=== PATIENT | male | born 1975 | race African-American/Black ===

== ENCOUNTER 2017-05-31 13:53 | Inpatient (IN) | payer SELFPAY ==
[2017-05-31] VITALS (14 sets, daily range): BP systolic 170–206; BP diastolic 92–139; PULSE 44–91; RESP 16–18; TEMP 97.7–99.4; O2SAT 95–100
[2017-05-31] MEDS ORDERED: SODIUM CHLOR 0.9% 1000 ML INJ 1,000 ML IV ONE (13:58)
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
[2017-05-31 14:11] LABS: I-STAT POTASSIUM 3.6 MMOL/L (3.5-4.9)
[2017-05-31 14:13] LABS: AUTOMATED NEUTROPHIL # 5.3 TH/MM3 (1.8-7.7); BASOPHIL % 0.5 % (0.0-2.0); EOSINOPHIL % 0.2 % (0.0-4.0); HEMATOCRIT 44.4 % (39.0-51.0); HEMO FLAGS DIFF FINAL; LYMPH % 25.9 % (9.0-44.0); LYMPHOCYTE # 2.2 TH/MM3 (1.0-4.8); MEAN CELL VOLUME 75.8 FL (80.0-100.0); MEAN CORPUSCULAR HEMOGLOBIN 25.1 PG (27.0-34.0); MEAN CORPUSCULAR HGB CONC 33.1 % (32.0-36.0); NEUT % 62.4 % (16.0-70.0); PLATELET COUNT 177 TH/MM3 (150-450); RED BLOOD COUNT 5.86 MIL/MM3 (4.50-5.90); RED CELL DISTRIBUTION WIDTH 14.3 % (11.6-17.2); WHITE BLOOD COUNT 8.6 TH/MM3 (4.0-11.0)
[2017-05-31 14:23] LABS: APTT (PATIENT) 28.7 SEC (24.3-30.1); INTERNATIONAL NORMALIZED RATIO 1.3 RATIO; PROTHROMBIN TIME - PATIENT 14.4 SEC (9.8-11.6)
--- NOTE | 2017-05-31 14:25 | RADRPT ---
EXAM DATE/TIME: 05/31/2017 14:00 [facility] COMPARISON: No previous studies available for comparison. INDICATIONS : Left sided weakness and arm tingling. RADIATION DOSE: 56.38 CTDIvol (mGy) This report was called by Dr. Batista to at 2: 21 PM MEDICAL HISTORY : None SURGICAL HISTORY : None. ENCOUNTER: Initial ACUITY: 1 day PAIN SCALE: 0/10 LOCATION: cranial TECHNIQUE: Multiple contiguous axial images were obtained of the head. Using automated exposure control and adj ustment of the mA and/or kV according to patient size, radiation dose was kept as low as reasonably a chievable to obtain optimal diagnostic quality images. DICOM format image data is available electro nically for review and comparison. FINDINGS: CEREBRUM: The ventricles are normal for age. No evidence of midline shift, mass lesion, hemorrhage or acute in farction. No extra-axial fluid collections are seen. POSTERIOR FOSSA: The cerebellum and brainstem are intact. The 4th ventricle is midline. The cerebellopontine angle i s unremarkable. EXTRACRANIAL: The visualized portion of the orbits is intact. SKULL: The calvaria is intact. No evidence of skull fracture. CONCLUSION: Normal examination for a patient of this age. Abhijeet Batista MD on May 31, 2017 at 14:19 Board Certified Radiologist. This report was verified electronically.
[2017-05-31] MEDS ORDERED: ENALAPRILAT 1.25 MG/ML VIAL IV PUSH ONE ×2 (14:30→19:15)
[2017-05-31 14:44] LABS: CKMB 3.6 NG/ML (0.5-3.6)
--- NOTE | 2017-05-31 15:42 | HHI.HP ---
[facility] Primary Care Physician Unknown Admission Diagnosis TIA VS POSSIBLE RADIAL NERVE PALSY Diagnoses: Chief Complaint: LUE weakness Travel History International Travel<30 Days: No Contact w/Intl Traveler <30 Da: No Traveled to Known Affected Are: No History of Present Illness Written by BRYAN Wang acting as scribe for [Meaghan] on 05/31/17 at 15 :55. 42 y/o male with a history of HTN (not on any medication) presented to the ED with complaints of LUE weakness 40 mins prior to coming to the ED. 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 After becoming dizzy his LUE went numb and he couldn't move it. He also had associated chest squeezing pressure and sob. He states his symptoms have now resolved. He states he does have HTN and his states the medication does not work and he is not going to take more than one medication. Denies any nausea or vomiting. Review of Systems Constitutional: DENIES: Fever, Chills Respiratory: COMPLAINS OF: Shortness of breath, DENIES: Cough Cardiovascular: COMPLAINS OF: Chest pain, DENIES: Lower Extremity Edema Gastrointestinal: DENIES: Constipation, Diarrhea, Nausea Genitourinary: DENIES: Hematuria, Dysuria Musculoskeletal: DENIES: Back pain, Neck pain Integumentary: DENIES: Rash Hematologic/lymphatic: DENIES: Lymphadenopathy Immunologic/allergic: DENIES: Urticaria Neurologic: DENIES: Headache Past Family Social History Past Medical History HTN, not on any medications Past Surgical History Colon resection with colostomy that was paddy reversed LLE with rods, pins, and screws Hernia repair Right 2nd digit partial amputation Reported Medications Reported Meds & Active Scripts Active No Active Prescriptions or Reported Medications Allergies: Coded Allergies: Contrast Media (Verified Allergy, Severe, Rash, 07/16/16) PT STATES HIVES/RASH/OVERALL WARMTH Lactose (Verified Allergy, Severe, 07/16/16) GI UPSET Shellfish (Verified Allergy, Severe, Anaphylaxis, 07/16/16) Active Ordered Medications Current Medications Medications (Trade) Dose Ordered Sig/Lisy Route Start Time Stop Time Status Last Admin (NS 1000 ml Inj) 1,000 ml @ 70 mls/hr [id number] ONCE IV 05/31/17 13:58 06/01/17 04:15 05/31/17 14:43 Family History Mom: CARLA Dad: colon cancer Social History Tobacco use: 1 PPD Alcohol use: Occasionally Illicit drug use: Marijuana daily Physical Exam Vital Signs Vital Signs Date Time Temp Pulse Resp B/P Pulse Ox O2 Delivery O2 Flow Rate FiO2 05/31/17 15:11 78 18 170/116 96 Room Air 05/31/17 13:55 Room Air 05/31/17 13:55 99 Room Air 05/31/17 13:55 95 21 05/31/17 13:55 Room Air 05/31/17 13:55 95 21 05/31/17 13:55 98.8 91 18 185/119 95 Physical Exam GENERAL: This is a well-nourished, well-developed patient, in no apparent distress. SKIN: No rashes, ecchymoses or lesions. Cool and dry. HEAD: Atraumatic. Normocephalic. EYES: Pupils equal round and reactive. Extraocular motions intact. ENT: Nose without bleeding, purulent drainage or septal hematoma. Airway patent. NECK: Trachea midline. No JVD or lymphadenopathy. CARDIOVASCULAR: Regular rate and rhythm without murmurs, gallops, or rubs. RESPIRATORY: Clear to auscultation. Breath sounds equal bilaterally. No wheezes , rales, or rhonchi. GASTROINTESTINAL: Abdomen soft, non-tender, nondistended. MUSCULOSKELETAL: Extremities without clubbing, cyanosis, or edema. No joint tenderness, effusion, or edema noted. No calf tenderness. NEUROLOGICAL: Awake and alert. Cranial nerves II through XII intact. Motor and sensory grossly within normal limits. Five out of 5 muscle strength in all muscle groups. Normal speech. Laboratory Laboratory Tests Test 05/31/17 13:57 White Blood Count 8.6 Red Blood Count 5.86 Hemoglobin 14.7 Bedside Hemoglobin 16.3 Hematocrit 44.4 Bedside Hematocrit 48.0 Mean Corpuscular Volume 75.8 Mean Corpuscular Hemoglobin 25.1 Mean Corpuscular Hemoglobin 33.1 Concent Red Cell Distribution Width 14.3 Platelet Count 177 Mean Platelet Volume 8.2 Neutrophils (%) (Auto) 62.4 Lymphocytes (%) (Auto) 25.9 Monocytes (%) (Auto) 11.0 Eosinophils (%) (Auto) 0.2 Basophils (%) (Auto) 0.5 Neutrophils # (Auto) 5.3 Lymphocytes # (Auto) 2.2 Monocytes # (Auto) 0.9 Eosinophils # (Auto) 0.0 Basophils # (Auto) 0.0 CBC Comment DIFF FINAL Differential Comment Prothrombin Time 14.4 Prothromb Time International 1.3 Ratio Activated Partial 28.7 Thromboplast Time Fibrinogen 374 Bedside Sodium 146 Bedside Potassium 3.6 Bedside Chloride 109 Bedside Blood Urea Nitrogen 14 Bedside Creatinine 1.4 Bedside Glucose 64 Total Creatine Kinase 422 Creatine Kinase MB 3.6 Creatine Kinase MB % 0.9 Troponin I 0.02 Blood Type A POSITIVE Antibody Screen NEGATIVE Result Diagram: 05/31/17 1357 Imaging Last Impressions Head CT 05/31/17 0000 Signed Impressions: Service Date/Time: Wednesday, May 31, 2017 14:00 - CONCLUSION: Normal examination for a patient of this age. Abhijeet Batista MD Assessment and Plan Problem List: (1) TIA (transient ischemic attack) ICD Code: G45.9 Status: Acute (2) Hypertensive emergency ICD Code: I16.1 Status: Acute (3) Acute kidney injury ICD Code: N17.9 Status: Acute Assessment and Plan 42 y/o male with a history of HTN (not on any medication) presented to the ED with complaints of LUE weakness 40 mins prior to coming to the ED. TIA, LUE weakness r/o CVA Head CT reviewed, unremarkable -Consult neurology, ED MD discussed with Dr Castillo and he recommended no TPA secondary to minimal deficit -MRI/MRA ordered -Allow for permissive HTN -Neuro checks -PT/OT/ST consult HTN emergency, patient is not on any medications because he states they do not work. -Discussed at length with patient the importance of taking medication and following of outpatient -Will need to start antihypertensives tomorrow. Acute Kidney Injury, creatine 1.4, baseline in 2013 1.06 -IVF -BMP in AM DVT prophylaxis: Heparin This note was transcribed by cristhian [Judy Kim]. I, Dr. Jin Harding personally performed the history, physical exam, and medical decision making; and confirmed the accuracy of the information in the transcribed note. Authenticated by Dr. Jin Harding on 05/31/17 at 1605. Discussed Condition With Patient Judy Kim BRYAN May 31, 2017 15:42 Jin Harding MD May 31, 2017 16:26
[2017-05-31] MEDS ORDERED: SENNOSIDES 8.6 MG TAB PO PRN (16:00)
[2017-05-31] MEDS ORDERED: NALOXONE HCL 0.4 MG/ML AMP IV PRN (16:00)
[2017-05-31] MEDS ORDERED: MAGNESIUM HYDROXIDE SUSP 30 ML CUP PO PRN (16:00)
[2017-05-31] MEDS ORDERED: ONDANSETRON HCL 4 MG/2 ML VIAL IVP PRN (16:00)
[2017-05-31] MEDS ORDERED: SODIUM CHLORIDE 0.9% FLUSH 10 ML FLUSH IV FLUSH PRN (16:00)
[2017-05-31] MEDS ORDERED: BISACODYL 10 MG SUPP RECTAL PRN (16:00)
[2017-05-31] MEDS ORDERED: HEPARIN SODIUM - SQ 10,000 UNITS/ML VIAL SQ SCH (16:00)
[2017-05-31] MEDS ORDERED: LACTULOSE SYRUP 20 GM/30 ML CUP PO PRN (16:00)
[2017-05-31] MEDS ORDERED: ENALAPRILAT 1.25 MG/ML VIAL IV PRN (16:15)
[2017-05-31] MEDS ORDERED: ASPIRIN 325 MG TAB PO SCH (17:00)
[2017-05-31] MEDS ORDERED: GADODIAMIDE PF 287 MG/ML 20 ML VIAL (for RAD MRI) IV ONE (18:39)
--- NOTE | 2017-05-31 18:45 | RADRPT ---
EXAM DATE/TIME: 05/31/2017 17:06 [facility] COMPARISON: MRA BRAIN W/O CONTRAST, May 31, 2017, 17:06. CT BRAIN W/O CONTRAST, May 31, 2017, 14:00. INDICATIONS : Stroke. MEDICAL HISTORY : Hypertension. SURGICAL HISTORY : Colon resection. Leg. ENCOUNTER: Subsequent ACUITY: 1 day PAIN SCORE: 3/10 LOCATION: cranial TECHNIQUE: Multiplanar, multisequence MRI of the brain was performed without contrast. FINDINGS: CEREBRUM: There is subtle increase signal within some of the cortical sulci at the superior right frontal and p arietal lobes. This is only seen on the flair images. No abnormality is seen on the diffusion-weighte d images to suggest infarction. There is a focal 0.9 cm nodular area of low signal seen in the superi or left parietal lobe only on the SWI images. No abnormality seen in this region on other sequences. The ventricles are normal for age. No evidence of midline shift, mass lesion, hemorrhage or acute in farction. No extraaxial fluid collections are seen. The pituitary gland and suprasellar cistern are normal in configuration. WHITE MATTER: No significant signal abnormalities are seen in the white matter. POSTERIOR FOSSA: The cerebellum and brainstem are intact. The 4th ventricle is midline. The cerebellopontine angle is unremarkable. The cerebellar tonsils are normal in position. DIFFUSION IMAGING: No focal areas of restricted diffusion are seen. No evidence of acute infarction. EXTRACRANIAL: The visualized portions of the orbits and paranasal sinuses are unremarkable. CONCLUSION: 1. Subtle signal and moderate within the cortex at the right frontal, temporal, and parietal lobes. T his is likely from ischemia without infarction. The patient does appear to have decreased flow at the proximal right middle cerebral artery on the MRA concerning for thrombus. 2. Focal area of decreased signal at the left parietal lobe seen on one sequence. This may be a seque la of prior hemorrhage. No acute mass effect or edema is seen. Norbert Angel MD on May 31, 2017 at 18:23 Board Certified Radiologist. This report was verified electronically.
--- NOTE | 2017-05-31 18:53 | RADRPT ---
EXAM DATE/TIME: 05/31/2017 17:06 [facility] COMPARISON: No previous studies available for comparison. INDICATIONS : CVA. MEDICAL HISTORY : Hypertension. SURGICAL HISTORY : Colon resection. Leg. ENCOUNTER: Subsequent ACUITY: 1 day PAIN SCORE: 3/10 LOCATION: cranial Please note a normal MRA of the brain does not entirely exclude the possibility of a small aneurysm, nor the possibility of distal intracranial vessel disease. TECHNIQUE: 3D time of flight MRA was performed. Source images, multiplanar STS MIP, and 3D volume MIP reconstru ctions were reviewed. FINDINGS: There appears to be thrombus at the right internal carotid artery bifurcation extending into the righ t middle and anterior cerebral arteries. The distal flow in the right middle and anterior cerebral ar teries is intact. There is a patent posterior communicating artery. The remaining arterial structures are normal. No aneurysm is seen. CONCLUSION: Suspected thrombus at the distal right internal carotid artery extending into the proximal right midd le and anterior cerebral arteries. Norbert Angel MD on May 31, 2017 at 18:43 Board Certified Radiologist. This report was verified electronically.
--- NOTE | 2017-05-31 19:00 | RADRPT ---
EXAM DATE/TIME: 05/31/2017 17:06 [facility] COMPARISON: No previous studies available for comparison. INDICATIONS : Stroke. CONTRAST: 20 cc Omniscan (gadodiamide) IV MEDICAL HISTORY : Hypertension. SURGICAL HISTORY : Colon resection. Leg. ENCOUNTER: Subsequent ACUITY: 1 day PAIN SCORE: 3/10 LOCATION: cranial Percent stenosis is calculated using the diameter of the stenotic region over the diameter of the nor mal distal internal carotid artery. TECHNIQUE: Bolus infused MRA of the extracranial circulation was performed using a neurovascular coil. Post pro cessing was performed including rotating subvolume maximum intensity projections of each carotid ann ry, rotating full volume maximum intensity projections of both carotid arteries, sagittal and coronal sliding thin slab reformations of each carotid artery, and left oblique sliding thin slab reformatio n through the aortic arch to include the origin of the arch branch vessels. FINDINGS: AORTIC ARCH: The left common carotid artery arises from the base of the right brachiocephalic artery. This a everardo l variant. No evidence of ostial narrowing. RIGHT CAROTID: The common carotid artery is intact. The carotid bulb has a normal configuration without ulceration or narrowing. The internal carotid artery lumen is smooth without stenosis. The external carotid ar sheree is intact. There is filling of the right internal jugular vein. There is a potential communicati on at the level of the carotid bulb region. LEFT CAROTID: The common carotid artery is intact. The carotid bulb has a normal configuration without ulceration or narrowing. The internal carotid artery lumen is smooth without stenosis. The external carotid ar sheree is intact. VERTEBRALS: The vertebral arteries have a symmetric diameter. No stenotic lesions are seen. CONCLUSION: Very prominent filling of the right internal jugular vein concerning for a fistula at the level of th e right internal carotid bifurcation. Further evaluation with a CTA of the neck would be recommended. Norbert Angel MD on May 31, 2017 at 18:51 Board Certified Radiologist. This report was verified electronically.
[2017-05-31] MEDS ORDERED: methylPREDNISolone SOD SUCC 125 MG/2 ML VIAL IV PUSH ONE (19:15)
--- NOTE | 2017-05-31 20:38 | MB ---
cc: JAJA CASTILLO M.D. DATE OF CONSULTATION 05/31/2017 HISTORY Jose Funk is a 42-year-old seen in neurological consultation. Case discussed with the ED physician Dr. Lacy earlier today. He came in with a left upper extremity weakness and he improved remarkably. By the time I was called a CT brain had been done which was negative and the patient's neurological deficits were minimal and only localized at the distal upper extremity where he had some wrist drop. We even thought he could have had a radial nerve palsy. He progressed to improve. We did not feel he was a candidate for TPA but felt we should do some additional imaging studies at that point. He was sent for MRA studies and I also requested an MRI brain. I spoke to the radiologist with concern about the possible thrombus on the right ICA along with possible ischemia without actual infarction. There was no diffusion abnormality and I reviewed the MRI. The MRA of the neck is showing a prominent filling of the right internal jugular vein concerning for fistula at the level of the right internal carotid bifurcation. The patient has a history of hypertension but not taking the lisinopril and HCTZ that was prescribed for him. He admits smoking including some smoking weed. No longer drinking alcohol although he was a heavy drinker in the past. He denies any other recreational drug use. 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 He then developed dizzy sensation and may have had some chest pain and the left arm became weak on him, he walked himself out of the place and got into the [employer] transportation van. NEUROLOGICAL EXAMINATION The neurological exam showed normal mentation. Essentially normal neurologic exam at this time. The NIH stroke scale is zero. The ocular movements and visual alan were full. There is no facial weakness. Speech and language normal. Tongue and palate moves well. He is mildly anxious. He has good strength on both upper extremities and [id number] testing is normal. Lower extremities also with normal strength and reflexes were 1+ throughout and plantar responses flexor. ASSESSMENT Resolved left arm weakness. Initially his symptoms seem to have improved quickly and we did not feel he was a candidate for TPA due to minimal deficits at that time. We even questioned whether or not this was a peripheral neuropathy rather than an cerebrovascular event. The MRA study is showing some right internal carotid artery distal possible thrombus extending to the right middle and anterior cerebral arteries. The MRA neck is showing a possible fistula at the level of the right internal carotid bifurcation. The MRI of brain shows no diffusion abnormalities and the radiologist questioned ischemia without infarction. There is an probable old left posterior parietal small hemorrhage sequela. I went and discussed with the patient this diagnostic consideration and possible treatment modalities as I also discussed with the interventional radiologist. At this point he is essentially asymptomatic and we will await on the CT angio results in order to make a decision. Though thrombectomy will be a consideration, another possibility would be anticoagulation. If a fistula is confirmed, then I will also contact the neurosurgeon for an opinion in that regard. For the time-being let his blood pressure be permissive unless over 210/110. I will follow the neurological course. Thank you for asking us to assist in his care. Jaja Castillo MD OFC/KK /8:14 PM /8:29 PM
[2017-05-31] MEDS: DOCUSATE SODIUM 50 MG/SENNA 8.6 MG TAB PO SCH (20:41)
[2017-05-31] MEDS: SODIUM CHLORIDE 0.9% FLUSH 10 ML FLUSH IV FLUSH SCH (20:41)
[2017-05-31] MEDS ORDERED: IOHEXOL 350 MG/ML 10 ML VIAL (for RAD DIAG) IV ONE (20:50)
--- NOTE | 2017-05-31 20:56 | RADRPT ---
EXAM DATE/TIME: 05/31/2017 20:10 [facility] COMPARISON: MRA CAROTIDS W CONTRAST, May 31, 2017, 17:06. MRA BRAIN W/O CONTRAST, May 31, 2017, 17:06. INDICATIONS : Left sided weakness. IV CONTRAST: 70 cc Omnipaque 350 (iohexol) IV ; Cumulative dose for multiple exams. RADIATION DOSE: 27.94 CTDIvol (mGy) ; Combined studies MEDICAL HISTORY : None SURGICAL HISTORY : None. ENCOUNTER: Initial ACUITY: 1 day PAIN SCALE: 0/10 LOCATION: cranial Patient was premedicated for underlying contrast media allergy. TECHNIQUE: Volumetric scanning was performed using a multi-row detector CT scanner. The data was post processed with a variety of visualization algorithms including full volume maximum intensity projection, multi -planar sliding thin slab reformation, curved planar reformation, and surface rendering techniques. Using automated exposure control and adjustment of the mA and/or kV according to patient size, radiat ion dose was kept as low as reasonably achievable to obtain optimal diagnostic quality images. DICO M format image data is available electronically for review and comparison. FINDINGS: The internal carotids are patent bilaterally. There does appear to be a 4 mm posteriorly directed ane urysm at the supraclinoid portion of the right distal internal carotid artery. On the coronal images, it appears the more distal right internal cerebral artery is smaller than the left side. The right M CA is patent. There is some questionable minimal irregularity at the right middle cerebral artery. Th e left middle cerebral artery appears very smooth. The A1 segments are asymmetric with the right side being small than the left side. Asymmetry to the A1 segments of the anterior cerebral arteries is fa irly common. Thrombus is not seen. The basilar artery primarily ends as the right posterior cerebral artery. The left posterior cerebral artery arises from the left internal carotid artery. CONCLUSION: 1. 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 2. Asymmetry to the middle cerebral arteries with questionable irregularity on the right which could represent spasm. The distal right internal carotid artery above the aneurysm also appears small which could indicate some spasm. 3. Asymmetry to the A1 segments of anterior cerebral arteries. This could be normal and represent the patient's normal state. Some spasm in the right anterior cerebral artery A1 segment could have a sim ilar appearance. Norbert Angel MD on May 31, 2017 at 20:37 Board Certified Radiologist. This report was verified electronically.
--- NOTE | 2017-05-31 21:03 | RADRPT ---
EXAM DATE/TIME: 05/31/2017 20:10 [facility] COMPARISON: No previous studies available for comparison. INDICATIONS : Left sided weakness. IV CONTRAST: 70 cc Omnipaque 350 (iohexol) IV ; Cumulative dose for multiple exams. RADIATION DOSE: 27.94 CTDIvol (mGy) ; Combined studies MEDICAL HISTORY : None SURGICAL HISTORY : None. ENCOUNTER: Initial ACUITY: 1 day PAIN SCALE: 0/10 LOCATION: carotids Elevated flow velocities and ICA/CCA ratios have been found to correlate with increased degrees of vessel stenosis, calculated as percentage of diameter relative to a normal segment of distal ICA/CCA. Patient was premedicated for underlying contrast media allergy. TECHNIQUE: Volumetric scanning was performed using a multirow detector CT scanner. The data was post processed with a variety of visualization algorithms including full-volume maximum intensity projection, multip lanar sliding thin-slab reformation, curved-planar reformation, and surface-rendering techniques. Us ing automated exposure control and adjustment of the mA and/or kV according to patient size, radiatio n dose was kept as low as reasonably achievable to obtain optimal diagnostic quality images. DICOM f ormat image data is available electronically for review and comparison. FINDINGS: AORTIC ARCH: The left common carotid artery arises from the base of the right brachiocephalic artery. This a everardo l variant. No evidence of ostial narrowing. RIGHT CAROTID: The common carotid artery is intact. The carotid bulb has a normal configuration without ulceration o r narrowing. The internal carotid artery lumen is smooth without stenosis. The external carotid ann ry is intact. LEFT CAROTID: The common carotid artery is intact. The carotid bulb has a normal configuration without ulceration or narrowing. The internal carotid artery lumen is smooth without stenosis. The external carotid ar sheree is intact. VERTEBRALS: The vertebral arteries have a symmetric diameter. No stenotic lesions are seen. OTHER: The internal jugular veins appear symmetric in size and contrast enhancement. Early enhancement on th e right side is not seen. Early enhancement was seen on the prior MRA. This could potentially be from retrograde filling if the patient had a right arm injection although the appearance is not typically seen almost MRAs. CONCLUSION: 1. Normal CTA of the neck. 2. The internal jugular veins appear symmetric. Early filling of the internal jugular veins is not se en. Norbert Angel MD on May 31, 2017 at 20:53 Board Certified Radiologist. This report was verified electronically.
[2017-05-31] MEDS ORDERED: hydrALAZINE HCL 20 MG/ML VIAL IV PUSH PRN (21:45)
[2017-05-31] MEDS ORDERED: cloNIDine HCL 0.1 MG TAB PO ONE (21:45)
--- NOTE | 2017-05-31 21:49 | HHI.PR ---
Addendum to Inpatient Note Addendum Reason: Additional Documentation Additional Information I was called by ER team that the radiologist had called them with the report of CT imaging studies. I have tried to reach the radiologist but was unable to do so. Therefore I had called neurologist to find out the details. The neurologist informed me that he has spoken to the radiologist and is aware of the imaging studies reports. At this point, patient is more suspicious of having a cerebral aneurysm rather than a thrombus which was the initial thoughts. Therefore, neurologist has advised me to control the blood pressure more tightly overnight with the goal being systolic of 150-160. Also advised me to hold all the blood thinners. Patient already received aspirin and heparin prophylactic dose tonight. I have informed this to the neurologist. However will hold blood thinners from now on. Give clonidine 0.1 mg by mouth 1 dose now. We'll use hydralazine 10 mg IV every 30 minutes when necessary for blood pressure greater than 150/80. We'll transfer patient to a monitored floor where I can administer IV antihypertensives. Nursing staff is informed of the above. Full cerebral angiogram will be done tomorrow per neurology. Melo Celeste MD May 31, 2017 21:49
[2017-05-31 21:54] LABS: HDL CHOLESTEROL 34.1 MG/DL (40.0-60.0); LDL CHOLESTEROL 45 MG/DL (0-99)
[2017-05-31] MEDS ORDERED: diphenhydrAMINE HCL 50 MG/ML VIAL IV PUSH ONE (22:00)
[2017-06-01] VITALS (21 sets, daily range): BP systolic 153–200; BP diastolic 79–117; PULSE 44–72; RESP 18–20; TEMP 98–98.4; O2SAT 95–100
[2017-06-01 07:19] LABS: HDL CHOLESTEROL 38.7 MG/DL (40.0-60.0)
[2017-06-01] MEDS: DOCUSATE SODIUM 50 MG/SENNA 8.6 MG TAB PO SCH ×2 (09:00→20:46)
[2017-06-01] MEDS: SODIUM CHLORIDE 0.9% FLUSH 10 ML FLUSH IV FLUSH SCH ×2 (09:19→20:43)
--- NOTE | 2017-06-01 09:57 | EKG ---
Date Performed: 05/31/2017 Time Performed: 14:17:52 PTAGE: 42 years EKG: Sinus rhythm NONSPECIFIC T-WAVE ABNORMALITY BORDERLINE ECG PREVIOUS TRACING : 12/30/2015 07.46 DOCTOR: Jey Gerber Interpretating Date/Time 06/01/2017 09:56:56
[2017-06-01] MEDS ORDERED: methylPREDNISolone SOD SUCC 125 MG/2 ML VIAL IV PUSH ONE (11:00)
[2017-06-01] MEDS ORDERED: diphenhydrAMINE HCL 50 MG/ML VIAL ONE (11:50)
[2017-06-01] MEDS ORDERED: MIDAZOLAM HCL 5 MG/5 ML VIAL ONE (11:55)
--- NOTE | 2017-06-01 11:55 | HHI.PR ---
Review/Management Daily Summary 06/01 doing well, no sx recurrence somewhat excessively enthusiastic with family members around i discussed he needs a more relaxed low ricks profile/environment for now spoke with radiology will request LP besides cerebral angio to look for minor aneurysm bleed Subjective Subjective Comments No acute events reported No headache No chest pain No dyspnea Active Medications Current Medications Medications (Trade) Dose Ordered Sig/Lisy Route Start Time Stop Time Status Last Admin (NS Flush) 2 ml UNSCH PRN IV FLUSH 05/31/17 16:00 (NS Flush) 2 ml BID IV FLUSH 05/31/17 21:00 06/01/17 09:19 (Zofran Inj) 4 mg Q6H PRN IVP 05/31/17 16:00 (Narcan Inj) 0.4 mg UNSCH PRN IV 05/31/17 16:00 (Ghislaine-Colace) 1 tab BID PO 05/31/17 21:00 (Milk Of Magnesia Liq) 30 ml Q12H PRN PO 05/31/17 16:00 (Senokot) 17.2 mg Q12H PRN PO 05/31/17 16:00 (Dulcolax Supp) 10 mg DAILY PRN RECTAL 05/31/17 16:00 (Lactulose Liq) 30 ml DAILY PRN PO 05/31/17 16:00 (Vasotec Inj) 1.25 mg Q6H PRN IV 05/31/17 16:15 06/01/17 09:16 (Apresoline Inj) 10 mg Q30M PRN IV PUSH 05/31/17 21:45 Allergies Allergies Coded Allergies Contrast Media (Verified Allergy, Severe, Rash, 07/16/16) Lactose (Verified Allergy, Severe, 07/16/16) Shellfish (Verified Allergy, Severe, Anaphylaxis, 07/16/16) Exam I&O / VS 05/31/17 05/31/17 06/01/17 15:00 23:00 07:00 Intake Total 240 ml 240 ml Output Total 125 ml Balance 240 ml 115 ml Intake Oral 240 ml 240 ml Output Urine Total 125 ml # Voids 2 # Bowel Movements 0 0 Vital Signs Date Time Temp Pulse Resp B/P Pulse Ox O2 Delivery O2 Flow Rate FiO2 06/01/17 08:00 98.2 51 18 170/94 100 06/01/17 06:06 98.0 44 18 156/91 99 06/01/17 04:00 52 06/01/17 03:00 46 06/01/17 02:00 56 06/01/17 01:00 49 06/01/17 00:14 153/90 06/01/17 00:00 159/79 05/31/17 23:54 98.0 44 18 170/95 100 05/31/17 21:45 97.7 72 17 192/92 99 05/31/17 21:24 50 05/31/17 20:45 99.4 64 16 199/111 99 05/31/17 19:49 60 17 184/113 98 Room Air 05/31/17 19:40 96 05/31/17 19:04 69 17 193/101 96 Room Air 05/31/17 16:45 76 187/102 05/31/17 15:11 78 18 170/116 96 Room Air 05/31/17 15:00 72 193/99 05/31/17 14:45 78 206/94 05/31/17 14:30 84 18 197/139 05/31/17 14:15 83 205/101 05/31/17 13:55 Room Air 05/31/17 13:55 99 Room Air 05/31/17 13:55 95 21 05/31/17 13:55 Room Air 05/31/17 13:55 95 21 05/31/17 13:55 98.8 91 18 185/119 95 Objective Radiology Results Last 48 hours Impressions Neck CTA [id number]/31/[id number] Signed Impressions: Service Date/Time: Wednesday, May 31, 2017 20:10 - CONCLUSION: 1. Normal CTA of the neck. 2. The internal jugular veins appear symmetric. Early filling of the internal jugular veins is not seen. Norbert Angel MD Head CTA [id number]/31/[id number] Signed Impressions: Service Date/Time: Wednesday, May 31, 2017 20:10 - CONCLUSION: 1. 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 2. Asymmetry to the middle cerebral arteries with questionable irregularity on the right which could represent spasm. The distal right internal carotid artery above the aneurysm also appears small which could indicate some spasm. 3. Asymmetry to the A1 segments of anterior cerebral arteries. This could be normal and represent the patient's normal state. Some spasm in the right anterior cerebral artery A1 segment could have a similar appearance. Norbert Angel MD Neck Magnetic Resonance Angiography 05/31/17 Signed Impressions: Service Date/Time: Wednesday, May 31, 2017 17:06 - CONCLUSION: Very prominent filling of the right internal jugular vein concerning for a fistula at the level of the right internal carotid bifurcation. Further evaluation with a CTA of the neck would be recommended. Norbert Angel MD Head Magnetic Resonance Angiography 05/31/17 Signed Impressions: Service Date/Time: Wednesday, May 31, 2017 17:06 - CONCLUSION: Suspected thrombus at the distal right internal carotid artery extending into the proximal right middle and anterior cerebral arteries. Norbert Angel MD Head CT 05/31/17 Signed Impressions: Service Date/Time: Wednesday, May 31, 2017 14:00 - CONCLUSION: Normal examination for a patient of this age. Abhijeet Batista MD Brain MRI 05/31/17 Signed Impressions: Service Date/Time: Wednesday, May 31, 2017 17:06 - CONCLUSION: 1. Subtle signal and moderate within the cortex at the right frontal, temporal, and parietal lobes. This is likely from ischemia without infarction. The patient does appear to have decreased flow at the proximal right middle cerebral artery on the MRA concerning for thrombus. 2. Focal area of decreased signal at the left parietal lobe seen on one sequence. This may be a sequela of prior hemorrhage. No acute mass effect or edema is seen. Norbert Angel MD Micro and Labs Laboratory Tests Test 05/31/17 06/01/17 13:57 05:48 White Blood Count 8.6 Red Blood Count 5.86 Hemoglobin 14.7 Bedside Hemoglobin 16.3 Hematocrit 44.4 Bedside Hematocrit 48.0 Mean Corpuscular Volume 75.8 Mean Corpuscular Hemoglobin 25.1 Mean Corpuscular Hemoglobin 33.1 Concent Red Cell Distribution Width 14.3 Platelet Count 177 Mean Platelet Volume 8.2 Neutrophils (%) (Auto) 62.4 Lymphocytes (%) (Auto) 25.9 Monocytes (%) (Auto) 11.0 Eosinophils (%) (Auto) 0.2 Basophils (%) (Auto) 0.5 Neutrophils # (Auto) 5.3 Lymphocytes # (Auto) 2.2 Monocytes # (Auto) 0.9 Eosinophils # (Auto) 0.0 Basophils # (Auto) 0.0 CBC Comment DIFF FINAL Differential Comment Prothrombin Time 14.4 Prothromb Time International 1.3 Ratio Activated Partial 28.7 Thromboplast Time Fibrinogen 374 Bedside Sodium 146 Bedside Potassium 3.6 Bedside Chloride 109 Bedside Blood Urea Nitrogen 14 Bedside Creatinine 1.4 Bedside Glucose 64 Total Creatine Kinase 422 Creatine Kinase MB 3.6 Creatine Kinase MB % 0.9 Troponin I 0.02 Triglycerides Level 92 55 Cholesterol Level 97 105 LDL Cholesterol 45 55 HDL Cholesterol 34.1 38.7 Cholesterol/HDL Ratio 2.84 2.71 Blood Type A POSITIVE Antibody Screen NEGATIVE Ron Castillo MD Jun 01, 2017 11:55
[2017-06-01] MEDS ORDERED: fentaNYL CITRATE 250 MCG/5 ML AMP ONE (11:56)
[2017-06-01 12:40] LABS: HEMOGLOBIN A1a 1.1 %; HEMOGLOBIN A1b 1.6 %; HEMOGLOBIN Ao 85.5 %; HEMOGLOBIN LA1C 1.5 %; HEMOGLOBIN P3 3.6 %
[2017-06-01] MEDS ORDERED: ACETAMINOPHEN 325 MG TAB PO PRN (13:00)
--- NOTE | 2017-06-01 13:01 | PD.RAD ---
Post Procedure Progress Note Pre Procedure Diagnosis: (1) TIA (transient ischemic attack) (2) Cerebral aneurysm Post Procedure Diagnosis: (1) Hypertensive emergency (2) TIA (transient ischemic attack) Procedure Date: Jun 01, 2017 Supervising Radiologist: Amol Kevin Proceduralist/Assist: Rosa Briones, RT(R)(CV), Kei Cintron RT(R)() Anesthesia: Conscious Sedation Plan of Activity Patient to Unit: Nursing Unit Patient Condition: Good Additional Comments: Angiography confirms aneurysm. Full report to follow. See PACS Report for procedural detail/treatment Amol Kevin MD Jun 01, 2017 13:01
[2017-06-01 13:10] LABS: CSF LYMPHOCYTES 0 %; CSF NEUTROPHILS 0 %; GROSS BLOOD TUBE #1 0 (0); GROSS BLOOD TUBE #2 0 (0); GROSS BLOOD TUBE #3 0 (0); GROSS BLOOD TUBE #4 0 (0); SUPERNATE COLOR TUBE #1 CLEAR (CLEAR); SUPERNATE COLOR TUBE #2 CLEAR (CLEAR); SUPERNATE COLOR TUBE #3 CLEAR (CLEAR); SUPERNATE COLOR TUBE #4 CLEAR (CLEAR); VOLUME TUBE # 4 2.3 ML; WBC TUBE #4 0 /MM3 (0-10)
--- NOTE | 2017-06-01 14:04 | RADRPT ---
EXAM DATE/TIME: 06/01/2017 10:57 [facility] COMPARISON: No previous studies available for comparison. INDICATIONS : Baseline diagnosed cerebral aneurysm with TIA symptoms have now resolved. Lumbar puncture has been re quested to evaluate for occult hemorrhage. 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 FLUID: 9 cc of clear CSF was collected and sent to the laboratory for analysis. PROCEDURE : 1. Fluoroscopic guided lumbar puncture. 2. Recording of opening pressure. The risks, benefits and alternatives to the procedure were explained and verbal and written consent w as obtained. The site was prepped in sterile fashion. Full sterile technique was used, including ca p, mask, sterile gloves and gown and a large sterile sheet. Hand hygiene and 2% chlorhexidine and/or betadine/alcohol prep was utilized per protocol for cutaneous antisepsis. The skin and subcutaneous tissues were infiltrated with local anesthetic solution. With fluoroscopic guidance the lumbar thecal sac was punctured at the above level described above and the opening pressure was recorded. The above described fluid was removed without difficulty.The pat ient tolerated the procedure well and there were no complications. CONCLUSION: Uncomplicated fluoroscopically guided lumbar puncture with pressures as above. Amol Kevin MD on June 01, 2017 at 14:00 Board Certified Radiologist. This report was verified electronically.
[2017-06-01] MEDS ORDERED: IODIXANOL 320 MG/ML 50 ML VIAL (for RAD SPEC) I-ARTERIAL ONE (14:15)
[2017-06-01] MEDS: oxyCODONE/ACETAMINOPHEN 5 MG/325 MG TAB PO PRN (14:19)
[2017-06-01] MEDS ORDERED: amLODIPine BESYLATE 5 MG TAB PO ONE (15:45)
--- NOTE | 2017-06-01 15:56 | HHI.PR ---
Subjective Remarks Follow up for acute CVA, right ICA occlusion and cerebral aneurysm. Patient returned from cerebral angiography. Currently patient is on bedrest. No acute concerns. He feels that he is at his baseline. No focal neurological deficits. Objective Vitals Vital Signs Date Time Temp Pulse Resp B/P Pulse Ox O2 Delivery O2 Flow Rate FiO2 06/01/17 14:32 98 06/01/17 14:21 175/82 06/01/17 14:05 47 06/01/17 13:50 20 200/95 99 06/01/17 08:00 48 06/01/17 08:00 98.2 51 18 170/94 100 06/01/17 06:06 98.0 44 18 156/91 99 06/01/17 04:00 52 06/01/17 03:00 46 06/01/17 02:00 56 06/01/17 01:00 49 06/01/17 00:14 153/90 06/01/17 00:00 159/79 05/31/17 23:54 98.0 44 18 170/95 100 05/31/17 21:45 97.7 72 17 192/92 99 05/31/17 21:24 50 05/31/17 20:45 99.4 64 16 199/111 99 05/31/17 19:49 60 17 184/113 98 Room Air 05/31/17 19:40 96 05/31/17 19:04 69 17 193/101 96 Room Air 05/31/17 16:45 76 187/102 I/O 05/31/17 05/31/17 05/31/17 06/01/17 06/01/17 06/01/17 07:00 15:00 23:00 07:00 15:00 23:00 Intake Total 240 ml 240 ml Output Total 125 ml 250 ml Balance 240 ml 115 ml -250 ml Intake Oral 240 ml 240 ml Output Urine Total 125 ml 250 ml # Voids 2 # Bowel Movements 0 0 1 Result Diagram: 05/31/17 1357 Imaging Last Impressions Lumbar Puncture Fluoroscopy 06/01/17 0000 Signed Impressions: Service Date/Time: Thursday, June 01, 2017 10:57 - CONCLUSION: Uncomplicated fluoroscopically guided lumbar puncture with pressures as above. Amol Kevin MD Neck CTA 05/31/17 1909 Signed Impressions: Service Date/Time: Wednesday, May 31, 2017 20:10 - CONCLUSION: 1. Normal CTA of the neck. 2. The internal jugular veins appear symmetric. Early filling of the internal jugular veins is not seen. Norbert Angel MD Head CTA 05/31/[id number] Signed Impressions: Service Date/Time: Wednesday, May 31, 2017 20:10 - CONCLUSION: 1. 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 2. Asymmetry to the middle cerebral arteries with questionable irregularity on the right which could represent spasm. The distal right internal carotid artery above the aneurysm also appears small which could indicate some spasm. 3. Asymmetry to the A1 segments of anterior cerebral arteries. This could be normal and represent the patient's normal state. Some spasm in the right anterior cerebral artery A1 segment could have a similar appearance. Norbert Angel MD Neck Magnetic Resonance Angiography 05/31/17 Signed Impressions: Service Date/Time: Wednesday, May 31, 2017 17:06 - CONCLUSION: Very prominent filling of the right internal jugular vein concerning for a fistula at the level of the right internal carotid bifurcation. Further evaluation with a CTA of the neck would be recommended. Norbert Angel MD Head Magnetic Resonance Angiography 05/31/17 Signed Impressions: Service Date/Time: Wednesday, May 31, 2017 17:06 - CONCLUSION: Suspected thrombus at the distal right internal carotid artery extending into the proximal right middle and anterior cerebral arteries. Norbert Angel MD Head CT 05/31/17 Signed Impressions: Service Date/Time: Wednesday, May 31, 2017 14:00 - CONCLUSION: Normal examination for a patient of this age. Abhijeet Batista MD Brain MRI 05/31/17 Signed Impressions: Service Date/Time: Wednesday, May 31, 2017 17:06 - CONCLUSION: 1. Subtle signal and moderate within the cortex at the right frontal, temporal, and parietal lobes. This is likely from ischemia without infarction. The patient does appear to have decreased flow at the proximal right middle cerebral artery on the MRA concerning for thrombus. 2. Focal area of decreased signal at the left parietal lobe seen on one sequence. This may be a sequela of prior hemorrhage. No acute mass effect or edema is seen. Norbert Angel MD Objective Remarks GENERAL: Alert, oriented 3, NAD. SKIN: Warm and dry. HEAD: Normocephalic. EYES: No scleral icterus. No injection or drainage. NECK: Supple, trachea midline. No JVD or lymphadenopathy. CARDIOVASCULAR: Regular rate and rhythm without murmurs, gallops, or rubs. RESPIRATORY: Breath sounds equal bilaterally. No accessory muscle use. GASTROINTESTINAL: Abdomen soft, non-tender, nondistended. MUSCULOSKELETAL: No cyanosis, or edema. BACK: Nontender without obvious deformity. No CVA tenderness. Procedures Cerebral angiography. 06/01/2017. A/P Problem List: (1) TIA (transient ischemic attack) ICD Code: G45.9 Status: Acute (2) Hypertensive emergency ICD Code: I16.1 Status: Acute (3) Acute kidney injury ICD Code: N17.9 Status: Acute Assessment and Plan Mr. Funk is a 42 y/o male with a history of HTN (not on any medication) presented to the ED with complaints of LUE weakness 40 mins prior to coming to the ED. - TIA with LUE weakness - Cerebral aneurysm - Neurology following. - Patient underwent angiography today. - Currently back to his baseline. - Hypertension - Patient was not taking any of the blood pressure medications at home. - Will start patient on Amlodipine 5mg Qday. We may need to add Lisinopril or a diuretic if BP is not well controlled. - Acute kidney injury - Creatinine 1.4. - Will check BMP in the AM. However, creatinine 1.4 could represent CKD due to hypertension Full code. Ambulation. Probable discharge on 06/02/2017 IF cleared by Neurology. Angel Clark DO Jun 01, 2017 3:56 pm
--- NOTE | 2017-06-01 17:01 | RADRPT ---
EXAM DATE/TIME: 06/01/2017 10:57 CORRECTION Corrected on: June 03, 2017; [facility] COMPARISON: No previous studies available for comparison. INDICATIONS : Patient presents with cerebral aneurysm in need of cerebral angiogram for further evaluation. 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 Ultrasound-guided puncture of the access site. 2. Conscious sedation with continuous EKG and Oximetry monitoring. 3. Slective catheter placement in the left vertebral artery with cerebral angiography 4. Slective catheter placement in the left internal carotid artery with cerebral angiography 5. Slective catheter placement in the right internal carotid artery with cerebral and rotational ang iography The risks, benefits and alternatives to the procedure were explained and verbal and written consent w as obtained. The site was prepped in sterile fashion. Full sterile technique was used, including ca p, mask, sterile gloves and gown and a large sterile sheet. Hand hygiene and 2% chlorhexidine and/or betadine/alcohol prep was utilized per protocol for cutaneous antisepsis. The skin and subcutaneous tissues were infiltrated with local anesthetic solution. With ultrasound and fluoroscopic guidance the selected artery was punctured and a vascular sheath was placed. A 4 Macedonian JB2 catheter was then advanced into the left vertebral artery and serial angiogra phy was performed in AP and lateral projections. Catheter was then repositioned into the left common carotid artery and advanced into the internal carotid artery. Cerebral angiography was then performed in AP and lateral projections. Catheter was then repositioned into the right brachycephalic artery. Several attempts to access the right vertebral artery were unsuccessful to 2 small vertebral arteries is noted on CT exam. Catheter was therefore repositioned into the right common and eventually sports management intern al carotid artery. Cerebral angiography was then performed in AP, oblique, and lateral projections. N ext, rotational supervisor carton and can supply was performed. Catheter was then removed. The puncture site was closed with manual pressure and hemostasis was obtained. The patient tolerated the procedure well and there were no complications. Conscious sedation was performed with the prescribed dosages and duration as above in the presence of an independent trained radiology nurse to assist in the monitoring of the patient. EKG and oximetry remained stable throughout the procedure. Findings: Posterior circulation: The left vertebral artery is the dominant vertebral artery and is widely patent. Extends to basilar a rtery which appears unremarkable. No evidence for basilar aneurysm. There is a origin of the le ft POULTRY HATCHERY SUPERVISOR. The right POULTRY HATCHERY SUPERVISOR appears unremarkable. No evidence for aneurysm, occlusion, or vascular malforma tion. Anterior circulation: Left internal carotid artery is patent. There is a hypoplastic left A1 segment. There is a left POULTRY HATCHERY SUPERVISOR. Middle cerebral and anterior cerebral artery branches are widely patent without evidence for st enosis, aneurysm, or vascular malformation. Right internal carotid artery is patent. There is a 4 x 4 x 5 mm aneurysm projecting posteriorly and medially in the supraclinoid ICA just beyond the ophthalmic ostium consistent with a superior hypophy seal aneurysm. Although asymmetric in caliber compared to the left, the ICA terminus is patent with f low extending to the anterior and middle cerebral artery branches. No evidence of further vascular ma lformations or additional aneurysms. 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 Aneurysm neck anato my is favorable for endovascular intervention. No evidence for large vessel occlusion, vascular malfo rmation, or additional aneurysms. Amol Kevin MD on June 01, 2017 at 16:15 Board Certified Radiologist. This report was verified electronically. Amol Kevin MD on June 03, 2017 at 15:44 Board Certified Radiologist. This report was verified electronically.
[2017-06-01] MEDS: cloNIDine HCL 0.1 MG TAB PO PRN (20:46)
[2017-06-02] VITALS (30 sets, daily range): BP systolic 153–198; BP diastolic 92–110; PULSE 44–87; RESP 16–20; TEMP 97.8–98.5; O2SAT 99–100
[2017-06-02 06:34] LABS: BICARBONATE 27.8 MEQ/L (21.0-32.0); POTASSIUM 4.5 MEQ/L (3.5-5.1)
[2017-06-02] MEDS: oxyCODONE/ACETAMINOPHEN 5 MG/325 MG TAB PO PRN ×3 (08:37→23:41)
[2017-06-02] MEDS: cloNIDine HCL 0.1 MG TAB PO PRN ×2 (08:37→14:59)
[2017-06-02] MEDS: SODIUM CHLORIDE 0.9% FLUSH 10 ML FLUSH IV FLUSH SCH ×2 (08:38→20:57)
[2017-06-02] MEDS: LISINOPRIL 20 MG TAB PO SCH (08:38)
[2017-06-02] MEDS: DOCUSATE SODIUM 50 MG/SENNA 8.6 MG TAB PO SCH ×2 (08:38→20:58)
[2017-06-02] MEDS ORDERED: amLODIPine BESYLATE 5 MG TAB PO SCH (09:00)
[2017-06-02] MEDS: hydrALAZINE HCL 50 MG TAB PO SCH ×2 (13:26→20:58)
--- NOTE | 2017-06-02 13:58 | ECHRPT ---
Indication: CVA/TIA CONCLUSIONS The left ventricular systolic function is normal with an estimated ejection fraction in the range of 60%. Mild concentric left ventricular hypertrophy. Normal wall motion. Trace mitral valve regurgitation. BP: 156 / 91 HR: 50 Rhythm: Sinus MEASUREMENTS (Male / Female) Normal Values Technical Quality:Good 2D ECHO LV Diastolic Diameter PLAX 5.5 cm 4.2 - 5.9 / 3.9 - 5.3 cm LV Systolic Diameter PLAX 4.5 cm IVS Diastolic Thickness 1.2 cm 0.6 - 1.0 / 0.6 - 0.9 cm LVPW Diastolic Thickness 1.2 cm 0.6 - 1.0 / 0.6 - 0.9 cm LV Relative Wall Thickness 0.4 LVOT Diameter 2.6 cm M-MODE Aortic Root Diameter MM 3.3 cm LA Systolic Diameter MM 4.1 cm LA Ao Ratio MM 1.2 AV Cusp Separation MM 2.3 cm DOPPLER AV Peak Velocity 124.0 cm/s AV Peak Gradient 6.2 mmHg LVOT Peak Velocity 82.4 cm/s LVOT Peak Gradient 2.7 mmHg AV Area Cont Eq pk 3.5 cm MR Peak Velocity 388.0 cm/s MR Peak Gradient 60.2 mmHg Mitral E Point Velocity 51.3 cm/s Mitral A Point Velocity 50.3 cm/s Mitral E to A Ratio 1.0 LV E' Lateral Velocity 5.9 cm/s Mitral E to LV E' Lateral Ratio 8.6 LV E' Septal Velocity 6.0 cm/s Mitral E to LV E' Septal Ratio 8.5 TR Peak Velocity 250.0 cm/s TR Peak Gradient 25.0 mmHg PV Peak Velocity 124.0 cm/s PV Peak Gradient 6.2 mmHg FINDINGS LEFT VENTRICLE The left ventricular systolic function is normal with an estimated ejection fraction in the range of 60%. Mild concentric left ventricular hypertrophy. RIGHT VENTRICLE Normal right ventricular size and systolic function. LEFT ATRIUM The left atrial size is upper limits of normal. RIGHT ATRIUM The right atrial size is normal. ATRIAL SEPTUM Normal atrial septal thickness without atrial level shunting by limited color doppler interrogation. AORTA The aortic root and proximal ascending aorta are normal in size on limited imaging. MITRAL VALVE Trace mitral valve regurgitation. AORTIC VALVE Trileaflet aortic valve. No aortic valve stenosis or regurgitation. TRICUSPID VALVE Normal tricuspid valve. PULMONARY VALVE The pulmonary valve is not well visualized. VESSELS The inferior vena cava is normal in size. PERICARDIUM No pericardial effusion. Oseas Booth MD (Electronically Signed) Final Date:02 June 2017 13:56
--- NOTE | 2017-06-02 14:53 | HHI.PR ---
Subjective Remarks Follow up for hypertension, aneurysm, transient ischemia. Mr. Funk is doing well. However, he wants to go home soon as long as it would be safe for him to be discharged. He denies any focal neurological deficits. He is back to his baseline. Objective Vitals Vital Signs Date Time Temp Pulse Resp B/P Pulse Ox O2 Delivery O2 Flow Rate FiO2 06/02/17 14:00 65 06/02/17 13:00 62 06/02/17 12:00 51 06/02/17 11:00 98.1 66 20 198/110 100 06/02/17 11:00 58 06/02/17 10:35 99 06/02/17 10:00 59 06/02/17 09:00 57 06/02/17 08:00 54 06/02/17 07:00 98.2 49 16 170/105 99 06/02/17 06:02 57 06/02/17 05:05 44 06/02/17 04:45 87 06/02/17 03:49 98.3 47 169/92 99 06/02/17 03:00 57 06/02/17 02:00 48 06/02/17 01:00 66 06/02/17 00:25 97.8 58 153/92 99 06/02/17 00:22 97.8 58 153/92 99 06/02/17 00:00 52 06/01/17 23:00 53 06/01/17 22:00 52 06/01/17 21:00 54 06/01/17 20:51 99 21 06/01/17 20:00 98.4 59 189/117 95 06/01/17 20:00 72 06/01/17 19:00 53 06/01/17 17:00 46 20 180/88 06/01/17 16:00 174/82 06/01/17 16:00 98.0 50 18 168/80 99 06/01/17 15:00 98.0 48 20 190/98 100 I/O 06/01/17 06/01/17 06/01/17 06/02/17 06/02/17 06/02/17 07:00 15:00 23:00 07:00 15:00 23:00 Intake Total 240 ml 960 ml Output Total 125 ml 250 ml 1150 ml Balance 115 ml -250 ml -190 ml Intake Oral 240 ml 960 ml Output Urine Total 125 ml 250 ml 1150 ml # Bowel Movements 0 1 Result Diagram: 05/31/17 1357 06/02/17 0554 Imaging Last Impressions Lumbar Puncture Fluoroscopy 06/01/17 Signed Impressions: Service Date/Time: Thursday, June 01, 2017 10:57 - CONCLUSION: Uncomplicated fluoroscopically guided lumbar puncture with pressures as above. 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 Aneurysm neck anatomy is favorable for endovascular intervention. No evidence for large vessel occlusion, vascular malformation, or additional aneurysms. Amol Kevin MD Neck CTA 05/31/171908 Signed Impressions: Service Date/Time: Wednesday, May 31, 2017 20:10 - CONCLUSION: 1. Normal CTA of the neck. 2. The internal jugular veins appear symmetric. Early filling of the internal jugular veins is not seen. Norbert Angel MD Head CTA [id number]/31/[id number] Signed Impressions: Service Date/Time: Wednesday, May 31, 2017 20:10 - CONCLUSION: 1. 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 2. Asymmetry to the middle cerebral arteries with questionable irregularity on the right which could represent spasm. The distal right internal carotid artery above the aneurysm also appears small which could indicate some spasm. 3. Asymmetry to the A1 segments of anterior cerebral arteries. This could be normal and represent the patient's normal state. Some spasm in the right anterior cerebral artery A1 segment could have a similar appearance. Norbert Angel MD Neck Magnetic Resonance Angiography 05/31/17 Signed Impressions: Service Date/Time: Wednesday, May 31, 2017 17:06 - CONCLUSION: Very prominent filling of the right internal jugular vein concerning for a fistula at the level of the right internal carotid bifurcation. Further evaluation with a CTA of the neck would be recommended. Norbert Angel MD Head Magnetic Resonance Angiography 05/31/17 Signed Impressions: Service Date/Time: Wednesday, May 31, 2017 17:06 - CONCLUSION: Suspected thrombus at the distal right internal carotid artery extending into the proximal right middle and anterior cerebral arteries. Norbert Angel MD Head CT 05/31/17 0000 Signed Impressions: Service Date/Time: Wednesday, May 31, 2017 14:00 - CONCLUSION: Normal examination for a patient of this age. Abhijeet Batista MD Brain MRI 05/31/17 0000 Signed Impressions: Service Date/Time: Wednesday, May 31, 2017 17:06 - CONCLUSION: 1. Subtle signal and moderate within the cortex at the right frontal, temporal, and parietal lobes. This is likely from ischemia without infarction. The patient does appear to have decreased flow at the proximal right middle cerebral artery on the MRA concerning for thrombus. 2. Focal area of decreased signal at the left parietal lobe seen on one sequence. This may be a sequela of prior hemorrhage. No acute mass effect or edema is seen. Norbert Angel MD Objective Remarks GENERAL: Alert, oriented 3, NAD. SKIN: Warm and dry. HEAD: Normocephalic. EYES: No scleral icterus. No injection or drainage. NECK: Supple, trachea midline. No JVD or lymphadenopathy. CARDIOVASCULAR: Regular rate and rhythm without murmurs, gallops, or rubs. RESPIRATORY: Breath sounds equal bilaterally. No accessory muscle use. GASTROINTESTINAL: Abdomen soft, non-tender, nondistended. MUSCULOSKELETAL: No cyanosis, or edema. BACK: Nontender without obvious deformity. No CVA tenderness. Procedures Cerebral angiography. 06/01/2017. A/P Problem List: (1) TIA (transient ischemic attack) ICD Code: G45.9 Status: Acute (2) Hypertensive emergency ICD Code: I16.1 Status: Acute (3) Acute kidney injury ICD Code: N17.9 Status: Acute Assessment and Plan Mr. Funk is a 42 y/o male with a history of HTN (not on any medication) presented to the ED with complaints of LUE weakness 40 mins prior to coming to the ED. - TIA with LUE weakness - Cerebral aneurysm - Neurology following. - Patient underwent angiography which confirmed aneurysm. - Neurologically patient is back to his baseline. - Neurosurgery consult pending per Neurology recommendation. - Hypertension - Patient was not taking any of the blood pressure medications at home. - Continue Amlodipine 10mg Qday, Lisinopril 20mg Qday. - Start Hydralazine 50mg Q8hrs. Continue Clonidine PRN. - Acute kidney injury - Creatinine 1.4. - Creatinine improved from 1.4 --> 1.19. Full code. Ambulation. Angel Clark DO Jun 02, 2017 14:53
--- NOTE | 2017-06-02 18:08 | HHI.PR ---
Review/Management Diagnosis transient left sided numbness and weakness--probable TIA cerebral aneurysm Plan recommend neurosurgery consult Diagnosis/Plan: Daily Summary 06/01 doing well, no sx recurrence somewhat excessively enthusiastic with family members around i discussed he needs a more relaxed low ricks profile/environment for now spoke with radiology will request LP besides cerebral angio to look for minor aneurysm bleed Subjective Subjective Comments No acute events reported he feels normal left sided strength and sensation Active Medications Current Medications Medications (Trade) Dose Ordered Sig/Lisy Route Start Time Stop Time Status Last Admin (NS Flush) 2 ml UNSCH PRN IV FLUSH 05/31/17 16:00 (NS Flush) 2 ml BID IV FLUSH 05/31/17 21:00 06/02/17 08:38 (Zofran Inj) 4 mg Q6H PRN IVP 05/31/17 16:00 (Narcan Inj) 0.4 mg UNSCH PRN IV 05/31/17 16:00 (Ghislaine-Colace) 1 tab BID PO 05/31/17 21:00 06/02/17 08:38 (Milk Of Magnesia Liq) 30 ml Q12H PRN PO 05/31/17 16:00 (Senokot) 17.2 mg Q12H PRN PO 05/31/17 16:00 (Dulcolax Supp) 10 mg DAILY PRN RECTAL 05/31/17 16:00 (Lactulose Liq) 30 ml DAILY PRN PO 05/31/17 16:00 (Vasotec Inj) 1.25 mg Q6H PRN IV 05/31/17 16:15 06/01/17 09:16 (Apresoline Inj) 10 mg Q30M PRN IV PUSH 05/31/17 21:45 06/02/17 11:06 (Catapres) 0.1 mg Q6H PRN PO 06/01/17 12:45 06/02/17 14:59 (Tylenol) 650 mg Q4H PRN PO 06/01/17 13:00 (Percocet 5-325 Mg) 1 tab Q4H PRN PO 06/01/17 13:00 06/02/17 08:37 (Norvasc) 10 mg DAILY PO 06/02/17 09:00 06/02/17 08:38 (Prinivil) 20 mg DAILY PO 06/02/17 09:00 06/02/17 08:38 (Apresoline) 50 mg Q8HR PO 06/02/17 14:00 06/02/17 13:26 Allergies Allergies Coded Allergies Contrast Media (Verified Allergy, Severe, Rash, 07/16/16) Shellfish (Verified Allergy, Severe, Anaphylaxis, 07/16/16) Whole Milk (Verified Adverse Reaction, Mild, Appetite Changes(Inc/Dec), 06/01/17 ) Exam I&O / VS 06/01/17 06/01/17 06/02/17 15:00 23:00 07:00 Intake Total 960 ml Output Total 250 ml 1150 ml Balance -250 ml -190 ml Intake Oral 960 ml Output Urine Total 250 ml 1150 ml # Bowel Movements 1 Vital Signs Date Time Temp Pulse Resp B/P Pulse Ox O2 Delivery O2 Flow Rate FiO2 06/02/17 17:00 80 06/02/17 16:00 55 06/02/17 15:45 174/110 06/02/17 15:00 54 06/02/17 15:00 98.5 71 20 182/109 100 06/02/17 14:00 65 06/02/17 13:00 62 06/02/17 12:00 51 06/02/17 11:00 98.1 66 20 198/110 100 06/02/17 11:00 58 06/02/17 10:35 99 06/02/17 10:00 59 06/02/17 09:00 57 06/02/17 08:00 54 06/02/17 07:00 98.2 49 16 170/105 99 06/02/17 06:02 57 06/02/17 05:05 44 06/02/17 04:45 87 06/02/17 03:49 98.3 47 169/92 99 06/02/17 03:00 57 06/02/17 02:00 48 06/02/17 01:00 66 06/02/17 00:25 97.8 58 153/92 99 06/02/17 00:22 97.8 58 153/92 99 06/02/17 00:00 52 06/01/17 23:00 53 06/01/17 22:00 52 06/01/17 21:00 54 06/01/17 20:51 99 21 06/01/17 20:00 98.4 59 189/117 95 06/01/17 20:00 72 06/01/17 19:00 53 Exam Comments alert, speech normal CN normal MOTOR 5/5 BUE and BLE Objective Radiology Results cerebral angiogram--4x4x5 mm aneurysm Micro and Labs Laboratory Tests Test 06/02/17 05:54 Sodium Level 141 Potassium Level 4.5 Chloride Level 109 Carbon Dioxide Level 27.8 Anion Gap 4 Blood Urea Nitrogen 16 Creatinine 1.19 Estimat Glomerular Filtration 82 Rate Random Glucose 92 Calcium Level 8.9 Date/Time Procedure Status Source Growth 06/01/17 11:46 Gram Stain - Final Resulted Cerebral Spinal Fluid Lumbar Puncture 06/01/17 11:46 CSF Culture - Preliminary Resulted Cerebral Spinal Fluid Lumbar Puncture NO GROWTH IN 24 HOURS. 06/01/17 11:46 Acid Fast Stain - Final Resulted Cerebral Spinal Fluid Lumbar Puncture NO ACID FAST BACILLI SEEN 06/01/17 11:46 Mycobacterial Culture Resulted Cerebral Spinal Fluid Lumbar Puncture Pending Héctor Preciado PhD Jun 02, 2017 18:08
[2017-06-03] VITALS (13 sets, daily range): BP systolic 160–162; BP diastolic 97–103; PULSE 43–66; RESP 18; TEMP 97.7–98.2; O2SAT 100
[2017-06-03] MEDS: oxyCODONE/ACETAMINOPHEN 5 MG/325 MG TAB PO PRN ×2 (04:19→08:35)
[2017-06-03] MEDS: cloNIDine HCL 0.1 MG TAB PO PRN (04:24)
[2017-06-03] MEDS: hydrALAZINE HCL 50 MG TAB PO SCH (05:44)
[2017-06-03] MEDS: LISINOPRIL 20 MG TAB PO SCH (08:34)
[2017-06-03] MEDS: DOCUSATE SODIUM 50 MG/SENNA 8.6 MG TAB PO SCH (08:34)
[2017-06-03] MEDS: SODIUM CHLORIDE 0.9% FLUSH 10 ML FLUSH IV FLUSH SCH (08:37)
[2017-06-03] MEDS ORDERED: LISI-515 PO (10:33)
[2017-06-03] MEDS ORDERED: AMLO10 PO (10:33)
[2017-06-03] MEDS ORDERED: HYDR-3800 PO (10:33)
--- NOTE | 2017-06-03 11:13 | MB ---
cc: JAJA RICHMOND M.D., ROHIT K. M.D. DATE OF CONSULTATION 06/03/2017 REASON FOR CONSULTATION Right ICA aneurysm. HISTORY OF PRESENT ILLNESS A 42-year-old -[place] gentleman who was admitted on 05/31/2070 after her presented with acute onset of the left arm numbness and weakness which subsequently resolved thereafter. He was seen by neurology service and felt to have a transient ischemic attack. He has a history of hypertension, had not been compliant with his medications. In any case, extensive workup has been undertaken including CT of the head which was negative for any intracranial hemorrhage or acute abnormality. MRI scan of the brain also reveals a small area in the right frontotemporal and parietal lobes consistent with ischemia. 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 Subsequently he also had a lumbar puncture which did not reveal any subarachnoid hemorrhage with 0 red blood cells. 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 The patient relates that he wants to be discharged home and will be more compliant with his hypertension monitoring and medication. PAST MEDICAL HISTORY 1. Hypertension. 2. Colon resection with colostomy with subsequent reversal. 3. Left lower extremity ORIF. 4. Right second digit partial amputation. 5. Herniorrhaphy. MEDICATIONS PRIOR TO ADMISSION None. CURRENT MEDICATIONS 1. Apresoline. 2. Norvasc. 3. Lisinopril. 4. p.r.n. Catapres. 5. p.r.n. Lorcet. ALLERGIES CONTRAST MEDIA. SELFISH. WHOLE MILK. SOCIAL HISTORY He is single. 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 Admits to smoking a pack of cigarettes a day. Admits to marijuana use. Drinks alcohol he states on an occasional basis. LABORATORY STUDIES White blood cell count 8.6, hemoglobin 14.7, platelet count 177. PT 14.4, INR 1.3, PTT 28.7, fibrinogen of 374. Sodium 141, potassium 4.5, BUN 16, creatinine 1.19, glucose 92. Lumbar puncture with 0 white blood cells and 0 RBCs, glucose of 67, protein of 47.3. No gross blood noted. PHYSICAL EXAMINATION VITALS: Temperature 98.3, pulse is 52, respiratory rate 20, blood pressure 162/97, oxygen saturation 100% on room air. HEAD: No De Santiago's or raccoon sign. NECK: Supple with no guarding or rigidity. CHEST: Clear to incision bilaterally. HEART: Bradycardia. Normal S1 and S2. ABDOMEN: Soft, nontender. EXTREMITIES: No cyanosis or edema. NEUROLOGIC: He is awake, alert. He is oriented x 3. Pupils are equal, reactive. Extraocular muscles are intact. Face is symmetric. Tongue is midline. He moves all four extremities with 5/5 strength. His speech is fluent. Light touch sensation intact. Negative Babinski. He is ambulating independently. IMPRESSION 1. Incidental unruptured right paraclinoid internal carotid artery less than 6-mm aneurysm. There is no subarachnoid hemorrhage noted on the lumbar puncture or CT scan of the head. 2. Unregulated hypertension. 3. Transient ischemic attack with resolved left upper extremity weakness and numbness. PLAN Regarding the small unruptured anterior circulation ICA cerebral aneurysm, the risk of treatment either endovascular or coiling or surgical clipping is higher than the natural history and therefore conservative treatment with observation is the recommendation. Obviously there is still a slight risk of hemorrhage with consequent sequelae including and therefore it is paramount that the patient monitor his blood pressure and be compliant with his hypertension medications. Unregulated hypertension and smoking is a risk factor for aneurysm development and rupture. I would recommend a follow-up MR angiogram or CT angiogram of the brain in one year to ensure no growth. If there is growth noted, then consideration for endovascular coiling by the neuroradiologist can be undertaken. I have discussed this with the patient and he understands and is in agreement. He is cleared for discharge from a neurosurgical standpoint. MD SUSAN Gallagher/CYNTHIA /10:08 AM 10:59 AM
== END 2017-06-03 11:11 | disposition home or self-care (01) | DRG 92 ==
LOC: NEPC 13:53 → NEDA 15:23 → OBSVTOIN 17:21 → N06A 20:26 → HCIS 22:58
PROVIDERS: ADMIT Hospitalist; ATTEND Hospitalist
PROC: 009U3ZX Drainage of Spinal Canal, Percutaneous Approach, Diagnostic (ICD-10-PCS; principal; 2017-06-01)
PROC: B01BYZZ Fluoroscopy of Spinal Cord using Other Contrast (ICD-10-PCS; 2017-06-01)
DX: I67.1 Cerebral aneurysm, nonruptured (principal); N17.9 Acute kidney failure, unspecified; I16.1 Hypertensive emergency; I10 Essential (primary) hypertension; G83.24 Monoplegia of upper limb affecting left nondominant side; R29.701 NIHSS score 1; F17.210 Nicotine dependence, cigarettes, uncomplicated; F12.90 Cannabis use, unspecified, uncomplicated; F32.9 Major depressive disorder, single episode, unspecified; Z90.49 Acquired absence of other specified parts of digestive tract; Z91.013 Allergy to seafood; Z91.041 Radiographic dye allergy status
CPT/HCPCS: 36224; 36226; 62270; 70450; 70496; 70498; 70544; 70548; 70551; 76937; 77003; 80048; 80061; 82435; 82550; 82552; 82565; 82945; 82947; 83036; 84132; 84157; 84295; 84484; 84520; 85025; 85384; 85610; 85730; 86592; 86850; 86900; 86901; 87015; 87070; 87116; 87205; 87206; 89051; 93005; 93306; 96374; 99152; 99153; A9579; C1769; C1887; C1894; J0360; J1200; J1644; J2250; J2930; J3010; J7030; Q9967

== ENCOUNTER 2017-06-04 13:16 | Inpatient (IN) | payer SELFPAY ==
[~2017-06-04] VITALS: Ht 190.5 cm; Wt 112.0 kg
[2017-06-04] VITALS (7 sets, daily range): BP systolic 120–184; BP diastolic 67–97; PULSE 53–85; RESP 16–20; TEMP 98.1; O2SAT 97–99
[2017-06-04] MEDS: SODIUM CHLOR 0.9% 1000 ML INJ 1,000 ML IV SCH (02:00)
[~2017-06-04 13:16] MED LIST: AMLO10 PO; HYDR-3800 PO; LISI-515 PO
[2017-06-04] MEDS ORDERED: SODIUM CHLOR 0.9% 1000 ML INJ 1,000 ML IV ONE (13:25)
[2017-06-04 13:45] LABS: AUTOMATED NEUTROPHIL # 9.9 TH/MM3 (1.8-7.7); BASOPHIL # 0.1 TH/MM3 (0-0.2); BASOPHIL % 0.5 % (0.0-2.0); EOSINOPHIL # 0.1 TH/MM3 (0-0.4); EOSINOPHIL % 0.7 % (0.0-4.0); HEMATOCRIT 46.6 % (39.0-51.0); HEMO FLAGS DIFF FINAL; LYMPH % 25.3 % (9.0-44.0); LYMPHOCYTE # 3.9 TH/MM3 (1.0-4.8); MEAN CELL VOLUME 76.8 FL (80.0-100.0); MEAN CORPUSCULAR HEMOGLOBIN 24.2 PG (27.0-34.0); MEAN CORPUSCULAR HGB CONC 31.5 % (32.0-36.0); MONO % 9.3 % (0.0-8.0); NEUT % 64.2 % (16.0-70.0); PLATELET COUNT 178 TH/MM3 (150-450); RED BLOOD COUNT 6.06 MIL/MM3 (4.50-5.90); WHITE BLOOD COUNT 15.5 TH/MM3 (4.0-11.0)
--- NOTE | 2017-06-04 13:46 | RADRPT ---
EXAM DATE/TIME: 06/04/2017 13:35 [facility] COMPARISON: CT BRAIN W/O CONTRAST, May 31, 2017, 14:00. INDICATIONS : Stroke alert, altered mental status. RADIATION DOSE: 50.47 CTDIvol (mGy) This report was called by Gómez to [facility] at <1344 hrs>> MEDICAL HISTORY : Non-responsive. SURGICAL HISTORY : Non-responsive. ENCOUNTER: Initial ACUITY: 1 day PAIN SCALE: Non-responsive LOCATION: Bilateral head TECHNIQUE: Multiple contiguous axial images were obtained of the head. Using automated exposure control and adj ustment of the mA and/or kV according to patient size, radiation dose was kept as low as reasonably a chievable to obtain optimal diagnostic quality images. DICOM format image data is available electro nically for review and comparison. FINDINGS: CEREBRUM: The ventricles are normal for age. No evidence of midline shift, mass lesion, hemorrhage or acute in farction. No extra-axial fluid collections are seen. POSTERIOR FOSSA: The cerebellum and brainstem are intact. The 4th ventricle is midline. The cerebellopontine angle i s unremarkable. EXTRACRANIAL: The visualized portion of the orbits is intact. SKULL: The calvaria is intact. No evidence of skull fracture. CONCLUSION: Normal examination. Jey Magaña MD on June 04, 2017 at 13:44 Board Certified Radiologist. This report was verified electronically.
[2017-06-04 13:47] LABS: I-STAT POTASSIUM 3.7 MMOL/L (3.5-4.9); I-STAT SODIUM 142 MMOL/L (138-146)
[2017-06-04 13:53] LABS: APTT (PATIENT) 26.3 SEC (24.3-30.1); INTERNATIONAL NORMALIZED RATIO 1.3 RATIO
[2017-06-04 14:06] LABS: CREATINE KINASE 218 U/L (39-308)
[2017-06-04] MEDS ORDERED: methylPREDNISolone SOD SUCC 125 MG/2 ML VIAL IV PUSH ONE (14:30)
--- NOTE | 2017-06-04 14:37 | RADRPT ---
EXAM DATE/TIME: 06/04/2017 13:54 [facility] COMPARISON: CHEST SINGLE AP, June 20, 2015, 22:20. INDICATIONS : Stroke Alert MEDICAL HISTORY : None. SURGICAL HISTORY : None. ENCOUNTER: Initial ACUITY: 1 day PAIN SCORE: 0/10 LOCATION: Bilateral chest FINDINGS: A single view of the chest demonstrates the lungs to be symmetrically aerated without evidence of mas s, infiltrate or effusion. The cardiomediastinal contours are unremarkable. Osseous structures are intact. CONCLUSION: No acute disease. Dejon Durand MD on June 04, 2017 at 14:35 Board Certified Radiologist. This report was verified electronically.
[2017-06-04 14:43] LABS: AMPHETAMINE, URINE NEG (NEG); BARBITURATES, URINE NEG (NEG); COCAINE, URINE NEG (NEG)
[2017-06-04 14:45] LABS: BACTERIA, URINE OCC /hpf; BLOOD, URINE NEG (NEG); GLUCOSE,URINE NEG (NEG); HYALINE CAST, URINE 10 /lpf (RARE); KETONE, URINE TRACE mg/dL (NEG); MUCUS URINE MANY /lpf (OCC); NITRITE,URINE NEG (NEG); PH, URINE 5.5 (5.0-8.5); SQUAMOUS EPITHELIAL CELL URINE 2 /hpf (0-5); URINE COLOR YELLOW (YELLW/STRAW)
[2017-06-04] MEDS ORDERED: IOHEXOL 350 MG/ML 10 ML VIAL (for RAD DIAG) IV ONE (14:52)
[2017-06-04] MEDS ORDERED: CEFEPIME INJ 2,000 MG in SODIUM CHLORIDE 0.9% INJ 100 ML IV STA (14:58)
[2017-06-04] MEDS ORDERED: SODIUM CHLORID 0.9% 500 ML INJ 500 ML IV ONE (15:00)
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
[2017-06-04] MEDS ORDERED: fentaNYL CITRATE 250 MCG/5 ML AMP ONE (16:04)
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
[2017-06-04] MEDS ORDERED: VERAPAMIL HCL 5 MG/2 ML VIAL ONE ×4 (16:09→17:33)
[2017-06-04] MEDS ORDERED: DEXTROSE 50% IN WATER 50 ML VIAL(D50) IV PUSH PRN (16:15)
[2017-06-04] MEDS ORDERED: GLUCAGON 1 MG/ML VIAL OTHER PRN (16:15)
[2017-06-04] MEDS ORDERED: SODIUM CHLORIDE 0.9% FLUSH 5 ML FLUSH IV FLUSH PRN (16:15)
--- NOTE | 2017-06-04 16:33 | MB ---
cc: JOAN HAHN M.D. DATE OF CONSULTATION: 06/04/2017. REASON FOR CONSULTATION: Stroke alert. HISTORY OF PRESENT ILLNESS: Mr. Funk is a 42-year-old man who presented to the hospital with acute onset of left-sided weakness involving the left arm and left leg with a neglect phenomenon as well. He has recently admitted to the hospital earlier this month with similar symptoms as well as weakness on the left side. He was evaluated by Dr. Castillo. He was felt not to be a tPA candidate because of remarkable improvement in symptoms back to normal. At that time, he was evaluated with a CT scan of the brain which was normal. Initially he had an MRI of the brain showing subtle signal changes within the cortex of the right frontal, temporal and parietal lobes likely from ischemia which appear to be chronic in nature but no acute stroke was identified on the diffusion images. There was a decreased flow in the proximal right MCA on the MR angiogram with concern for thrombus in the right MCA area and also a suspected thrombus in the distal right internal carotid artery extending into the proximal right and middle and anterior cerebral arteries. He had a CT angiogram of the brain showing a 4 mm aneurysm at the supraclinoid portion of the right internal carotid artery. There is evidence of possible spasm in the right internal carotid artery and the right middle cerebral artery but evidence of any thrombus. He had a CTA of the neck, which was normal. He had a cerebral arteriogram performed showing a 4x4 x 5 mm superior right hypophyseal artery aneurysm. There was no evidence for large vessel occlusion, vascular malformation or distal aneurysms. At that time he was evaluated by Dr. Farmer of the neurosurgery service regarding the aneurysm who recommended conservative treatment with observation following up with an MRA or a CTA in one year to ensure no growth. The patient was discharged home and was doing well until today when he developed a recurrent left-sided weakness involving the left upper and left lower extremities. PAST MEDICAL HISTORY: Noted above. 1. He has a history of hypertension but it was untreated. 2. Colon resection with colostomy that was later reversed. 3. Hernia repair. 4. Right second digit amputation. ALLERGIES: 1. CONTRAST MEDIA. 2. LACTOSE. 3. SHELLFISH. NEUROLOGIC EXAMINATION: VITAL SIGNS: Blood pressure is 120/71, pulse is 53, respirations 16. HIGHER CORTICAL FUNCTIONS: He is alert and oriented and follows commands. He appears to have left-sided neglect. He is looking off to the right side. There is minimal left upper motor neuron VII palsy. MOTOR: On motor exam, he is very weak in the left arm and left leg rated at 2/5 proximally and distally with normal strength in the right arm and right leg at 5/5. CT scan of the brain is within normal limits. LABORATORY DATA: White count is 15,500, hemoglobin 14.2, hematocrit 46.6%, platelet count 178,000. PT 14, INR 1.3, APTT 26.3. Sodium is 142, potassium 3.7, chloride 109, BUN is 24, creatinine 1.5, glucose 127. CPK 218. Tox screen pending. IMPRESSION: Acute left hemiparesis. The differential would include acute stroke. Also the differential would include the possibility of hemiplegic migraine. The patient is not a candidate for IV tPA because of the cerebral aneurysm. At the present time, would recommend evaluation for the possibility of endovascular therapy, obtaining a stat CTA of the brain to see if there is any large vessel occlusion. Because of the CONTRAST ALLERGY, will need to premedicate with steroids. MD RICHY Candelario/TRANG /2:38 PM /4:28 PM
[2017-06-04] MEDS ORDERED: HEPARIN SODIUM - IV 10,000 UNITS/10 ML VIAL ONE (16:52)
--- NOTE | 2017-06-04 17:28 | EKG ---
Date Performed: 06/04/2017 Time Performed: 14:20:19 PTAGE: 42 years EKG: Sinus rhythm WITH SINUS ARRHYTHMIA MODERATE T-WAVE ABNORMALITY, CONSIDER ANTEROLATERAL ISCHEMIA ABNORMAL ECG PREVIOUS TRACING : 05/31/2017 14.17 Compared to the previous tracing, ST/T waves changes are no w noted DOCTOR: Min Roy Interpretating Date/Time 06/04/2017 17:27:59
--- NOTE | 2017-06-04 18:16 | PD.RAD ---
Post Procedure Progress Note Pre Procedure Diagnosis: (1) Cerebral aneurysm (2) Stroke Post Procedure Diagnosis: (1) Stroke (2) Cerebral aneurysm Procedure Date: Jun 04, 2017 Supervising Radiologist: Amol Kevin Proceduralist/Assist: Rosa Briones, RT(R)(CV), Kei Cintron RT(R)() Anesthesia: General Plan of Activity Patient to Unit: PACU Patient Condition: Good Additional Comments: Right ICA T-lesion with acute on chronic thrombus. Removed acute portion and small amount of chronic thrombus following 3mm plasty. Now non-occlusive chronic thrombus at prox M1 segment. Will need to anticoagulate despite aneurysm to insure patency. See PACS Report for procedural detail/treatment Amol Kevin MD Jun 04, 2017 18:16
[2017-06-04] MEDS ORDERED: HEPARIN-D5W INJ 250 ML ONE (18:37)
[2017-06-04] MEDS ORDERED: IODIXANOL 320 MG/ML 50 ML VIAL (for RAD SPEC) I-ARTERIAL ONE (18:50)
--- NOTE | 2017-06-04 18:50 | HHI.HP ---
[facility] No Primary Care Physician Admission Diagnosis stroke Diagnoses: Travel History International Travel<30 Days: No Contact w/Intl Traveler <30 Da: No Traveled to Known Affected Are: No History of Present Illness This is a 42-year-old male past medical history of hypertension and tobacco dependence who presented with acute onset of left-sided weakness involving the left arm and left leg with a neglect phenomenon as well. Patient seen in the PACU after procedure done by IR. History taken from EMR. Patient had a recent hospitalization a few days ago with similar symptoms in which workup showed subtle signal changes within the cortex of the right frontal, temporal and parietal lobes likely from ischemia which appear to be chronic in nature but no acute stroke was identified on the diffusion images. There was a decreased flow in the proximal right MCA on the MR angiogram with concern for thrombus in the right MCA area and also suspected thrombus in the distal right internal carotid artery extending into the proximal right and middle and anterior cerebral arteries. He then had a CT angiogram of the brain which showed a 4 mm aneurysm at the supraclinoid portion of the right internal carotid artery. 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 There was no evidence for large vessel occlusion, vascular malformation or distal aneurysms. Patient had an cerebral angiogram done by IR findings include right ICA T- lesion with acute on chronic thrombus. Removed acute portion and small amount of chronic thrombus following 3mm plasty. Now non-occlusive chronic thrombus at prox M1 segment. Per recommend anticoagulation with therapeutic heparin to assure patency. Dealt with Dr. Preciado over the phone and he is in agreement. Review of Systems Neurologic: COMPLAINS OF: Localized weakness Left heme paresis otherwise unable to obtain a history since patient is sedated. 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 Reported Medications Norvasc (Amlodipine Besylate) 10 Mg Tab 10 Mg PO DAILY Lisinopril 20 Mg Tab 20 Mg PO DAILY Hydralazine HCl 50 Mg Tablet 50 Mg PO Q8HR Allergies: Coded Allergies: Contrast Media (Verified Allergy, Severe, Rash, 06/04/17) PT STATES HIVES/RASH/OVERALL WARMTH Shellfish (Verified Allergy, Severe, Anaphylaxis, 06/04/17) Whole Milk (Verified Adverse Reaction, Mild, Appetite Changes(Inc/Dec), 06/04/17) intolerant to whole milk Active Ordered Medications Current Medications Sodium Chloride (NS 1000 ml Inj) 1,000 ml @ 70 mls/hr [id number] ONCE IV Last administered on 06/04/17 13:29; Start 06/04/17 at 13:25; Stop 06/04/17 at 16:45; Status DC Methylprednisolone Sodium Succinate (SoluMEDROL INJ) 125 mg ONCE ONCE IV PUSH Last administered on 06/04/17 14:21; Start 06/04/17 at 14:30; Stop 06/04/17 at 14: 31; Status DC Iohexol 75 ml 75 ml STK-MED ONCE IV Last administered on 06/04/17 14:52; Start 06/04/17 at 14:52; Stop 06/04/17 at 14:53; Status DC Cefepime HCl 2000 mg/Sodium Chloride 100 ml @ 200 mls/hr ONCE STAT IV ; Start 06/04/17 at 14:58; Stop 06/04/17 at 15:27; Status DC Sodium Chloride (NS 500 ml Inj) 500 ml @ 500 mls/hr BOLUS ONCE IV ; Start 06/04 at 15:00; Stop 06/04/17 at 15:59; Status DC Fentanyl Citrate (fentaNYL INJ) 500 mcg STK-MED ONCE .ROUTE ; Start 06/04/17 at 16:04; Stop 06/04/17 at 16:05; Status DC Verapamil HCl (Isoptin Inj) 10 mg STK-MED ONCE .ROUTE ; Start 06/04/17 at 16:09; Stop 06/04/17 at 16:10; Status DC IV Flush (NS Flush) 2 ml BID IV FLUSH ; Start 06/04/17 at 21:00 IV Flush 2 ml 2 ml UNSCH PRN IV FLUSH FLUSH AFTER USING IV ACCESS; Start at 16:15 Sodium Chloride (NS 1000 ml Inj) 1,000 ml @ 70 mls/hr [id number] IV ; Start at 16:11 Insulin Aspart (NovoLOG SUPPLEMENTAL SCALE) 1 ACHS SQ ; Start 06/04/17 at 21:00 Dextrose (D50w (Vial) Inj) 50 ml UNSCH PRN IV PUSH HYPOGLYCEMIA-SEE COMMENTS; Start 06/04/17 at 16:15 Glucagon (Glucagon Inj) 1 mg UNSCH PRN OTHER HYPOGLYCEMIA-SEE COMMENTS; Start 06/04/17 at 16:15 Verapamil HCl (Isoptin Inj) 10 mg STK-MED ONCE .ROUTE ; Start 06/04/17 at 16:52; Stop 06/04/17 at 16:53; Status DC Heparin Sodium (Porcine) (Heparin Inj) 10,000 units STK-MED ONCE .ROUTE ; Start 06/04/17 at 16:52; Stop 06/04/17 at 16:53; Status DC Verapamil HCl (Isoptin Inj) 10 mg STK-MED ONCE .ROUTE ; Start 06/04/17 at 17:07; Stop 06/04/17 at 17:08; Status DC Verapamil HCl 10 mg 10 mg STK-MED ONCE .ROUTE ; Start 06/04/17 at 17:33; Stop 06/04/17 at 17:34; Status DC Heparin Sodium/ Dextrose 250 ml @ As Directed STK-MED ONCE .ROUTE ; Start at 18:37; Stop 06/04/17 at 18:38; Status DC Heparin Sodium/ Dextrose (Heparin-D5W Inj) 250 ml @ 0 mls/hr TITRATE IV ; Start 06/04/17 at 19:00; Status UNV Iodixanol (VISIPAQUE 320 INJ (Rad Spec)) 185 ml STK-MED ONCE I-ARTERIAL ; Start 06/04/17 at 18:50; Stop 06/04/17 at 18:51; Status DC Family History mother hx of [place] father hx of colon cancer Social History Smokes 1 pack per day of tobacco. Daily marijuana use. Occasional alcohol use. Physical Exam Vital Signs Vital Signs Date Time Temp Pulse Resp B/P Pulse Ox O2 Delivery O2 Flow Rate FiO2 06/04/17 16:06 61 20 130/68 98 06/04/17 15:40 58 20 123/68 97 06/04/17 15:32 60 20 132/68 98 06/04/17 14:00 53 16 120/71 98 06/04/17 13:32 98 06/04/17 13:32 98 Room Air Physical Exam GENERAL: This is a well-nourished, well-developed patient, in no apparent distress with oxygen mask on. Patient was just extubated and is sedated. SKIN: No rashes, ecchymoses or lesions. Cool and dry. HEAD: Atraumatic. Normocephalic. No temporal or scalp tenderness. EYES: Pupils equal round and reactive.No scleral icterus. No injection or drainage. ENT: Nose without bleeding, purulent drainage or septal hematoma. Throat without erythema, tonsillar hypertrophy or exudate. Uvula midline. Airway patent. NECK: Trachea midline. No JVD or lymphadenopathy. Supple, nontender, no meningeal signs. CARDIOVASCULAR: Regular rate and rhythm without murmurs, gallops, or rubs. RESPIRATORY: Clear to auscultation. Breath sounds equal bilaterally. No wheezes , rales, or rhonchi. GASTROINTESTINAL: Abdomen soft, non-tender, nondistended. No hepato-splenomegaly , or palpable masses. No guarding. MUSCULOSKELETAL: Extremities without clubbing, cyanosis, or edema. No joint tenderness, effusion, or edema noted. No calf tenderness. Negative Homans sign bilaterally. NEUROLOGICAL: Sedated. Unable to assess due to sedation. Laboratory Laboratory Tests Test 06/04/17 06/04/17 06/04/17 13:29 14:00 15:20 White Blood Count 15.5 Red Blood Count 6.06 Hemoglobin 14.7 Bedside Hemoglobin 17.0 Hematocrit 46.6 Bedside Hematocrit 50.0 Mean Corpuscular Volume 76.8 Mean Corpuscular Hemoglobin 24.2 Mean Corpuscular Hemoglobin 31.5 Concent Red Cell Distribution Width 14.0 Platelet Count 178 Mean Platelet Volume 8.4 Neutrophils (%) (Auto) 64.2 Lymphocytes (%) (Auto) 25.3 Monocytes (%) (Auto) 9.3 Eosinophils (%) (Auto) 0.7 Basophils (%) (Auto) 0.5 Neutrophils # (Auto) 9.9 Lymphocytes # (Auto) 3.9 Monocytes # (Auto) 1.4 Eosinophils # (Auto) 0.1 Basophils # (Auto) 0.1 CBC Comment DIFF FINAL Differential Comment Prothrombin Time 14.0 Prothromb Time International 1.3 Ratio Activated Partial 26.3 Thromboplast Time Fibrinogen 392 Bedside Sodium 142 Bedside Potassium 3.7 Bedside Chloride 109 Bedside Blood Urea Nitrogen 24 Bedside Creatinine 1.5 Bedside Glucose 127 Total Creatine Kinase 218 Troponin I LESS THAN 0.02 Blood Type A POSITIVE Antibody Screen NEGATIVE Urine Color YELLOW Urine Turbidity HAZY Urine pH 5.5 Urine Specific [place] 1.034 Urine Protein 30 Urine Glucose (UA) NEG Urine Ketones TRACE Urine Occult Blood NEG Urine Nitrite NEG Urine Bilirubin NEG Urine Urobilinogen 4.0 Urine Leukocyte Esterase LARGE Urine RBC 1 Urine WBC 25 Urine WBC Clumps OCC Urine Squamous Epithelial 2 Cells Urine Bacteria OCC Urine Hyaline Casts 10 Urine Mucus MANY Urine Opiates Screen NEG Urine Barbiturates Screen NEG Urine Amphetamines Screen NEG Urine Benzodiazepines Screen NEG Urine Cocaine Screen NEG Urine Cannabinoids Screen NEG Lactic Acid Level 2.6 Date/Time Procedure Status Source Growth 06/04/17 15:20 Aerobic Blood Culture Received Blood Peripheral Pending 06/04/17 15:20 Anaerobic Blood Culture Received Blood Peripheral Pending 06/04/17 14:00 Urine Culture Received Urine Other Pending Result Diagram: 06/04/17 1329 Imaging Last Impressions Head CTA 06/04/17 0000 Signed Impressions: Service Date/Time: Sunday, June 04, 2017 14:41 - CONCLUSION: 1. Nondiagnostic CTA examination due to significant patient motion. Plan: Patient will be transferred emergently for cerebral angiography and possible intervention. Amol Kevin MD Head CT 06/04/17 0000 Signed Impressions: Service Date/Time: Sunday, June 04, 2017 13:35 - CONCLUSION: Normal examination. Jey Magaña MD Chest X-Ray 06/04/17 0000 Signed Impressions: Service Date/Time: Sunday, June 04, 2017 13:54 - CONCLUSION: No acute disease. Dejon Durand MD Assessment and Plan Assessment and Plan Mr. Funk is a 42 y/o male with a history of HTN (not on any medication) presented to the ED with complaints of LUE weakness 40 mins prior to coming to the ED. Left-sided hemophoresis -Stroke alert was called. Neurologist, Dr. Preciado following. -CT scan was done which was negative. Attempted CTA of the head and neck which was nondiagnostic. -Patient had emergent cerebral angiogram which showed right ICA T-lesion with acute on chronic thrombus. Removed acute portion and small amount of chronic thrombus following 3mm plasty. Now non-occlusive chronic thrombus at prox M1 segment. Dealt with both Dr. Preciado and Dr. Rizvi who are both in agreement in anticoagulating despite aneurysm to insure patency since patient is very high risk of reforming thrombosis. -Patient was given bolus in IR and PTT was obtained. Will start ischemic heparin gtt protocol. -consult PT/OT/ST. -neuro check. Patient will be monitored in [facility]. -stoke protocol implemented. Cerebral aneurysm -Pending hospital course IR may coil. Hypertension -Patient is on amlodipine, lisinopril, and hydralazine at home. -At the moment his blood pressure is normotensive. Will continue to monitor. Hold medication for now. -We'll put when necessary medication. Acute on Chronic kidney disease -Most likely due to hypoperfusion. Patient is on IV fluids. -Continue IV fluids. Strict ins and outs. Avoid nephrotoxins. Leukocytosis -May be due to current etiology. Chest x-ray negative. UA does not suggest a UTI, but will get urine cultures. -Will continue to monitor and trend for any signs of infection. DVT prophylaxis -Patient will be on heparin drip. Discussed Condition With PACU staff Physician Certification 2 Midnight Certification Type: Admission for Inpatient Services Order for Inpatient Services The services are ordered in accordance with Medicare regulations or non- Medicare payer requirements, as applicable. In the case of services not specified as inpatient-only, they are appropriately provided as inpatient services in accordance with the 2-midnight benchmark. Estimated LOS (days): 5 5 days is the estimated time the patient will need to remain in the hospital, assuming treatment plan goals are met and no additional complications. Post-Hospital Plan: Not yet determined Lana Breaux MD Jun 04, 2017 18:50
[2017-06-04] MEDS: SODIUM CHLORIDE 0.9% FLUSH 5 ML FLUSH IV FLUSH SCH (21:00)
[2017-06-04] MEDS: INSULIN ASPART SUPPLEMENTAL SCALE SQ SCH (21:00)
[2017-06-04 23:34] LABS: APTT (PATIENT) 48.3 SEC (24.3-30.1)
[2017-06-05] VITALS (20 sets, daily range): BP systolic 132–192; BP diastolic 56–99; PULSE 56–98; RESP 17–21; TEMP 97.8–98.6; O2SAT 99–100
[2017-06-05 03:32] LABS: HEMATOCRIT 44.4 % (39.0-51.0); MEAN CELL VOLUME 76.3 FL (80.0-100.0); MEAN CORPUSCULAR HEMOGLOBIN 24.3 PG (27.0-34.0); MEAN CORPUSCULAR HGB CONC 31.9 % (32.0-36.0); PLATELET COUNT 171 TH/MM3 (150-450); RED BLOOD COUNT 5.82 MIL/MM3 (4.50-5.90); RED CELL DISTRIBUTION WIDTH 14.5 % (11.6-17.2); REVIEW FLAG FINAL
[2017-06-05 03:47] LABS: APTT (PATIENT) 42.8 SEC (24.3-30.1)
[2017-06-05 04:20] LABS: HDL CHOLESTEROL 36.3 MG/DL (40.0-60.0)
[2017-06-05 04:35] LABS: POTASSIUM 3.6 MEQ/L (3.5-5.1)
[2017-06-05] MEDS: hydrALAZINE HCL 20 MG/ML VIAL IV PUSH PRN (05:13)
[2017-06-05] MEDS: INSULIN ASPART SUPPLEMENTAL SCALE SQ SCH ×2 (05:41→20:03)
[2017-06-05] MEDS: SODIUM CHLOR 0.9% 1000 ML INJ 1,000 ML IV SCH ×2 (05:41→20:04)
[2017-06-05] MEDS: HEPARIN-D5W INJ 250 ML IV SCH (06:41)
[2017-06-05 10:17] LABS: HEMOGLOBIN A1a 1.7 %; HEMOGLOBIN A1b 1.6 %; HEMOGLOBIN Ao 84.5 %; HEMOGLOBIN LA1C 1.8 %; HEMOGLOBIN P3 3.8 %
[2017-06-05 10:53] LABS: APTT (PATIENT) 39.2 SEC (24.3-30.1)
--- NOTE | 2017-06-05 12:01 | HHI.PR ---
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 He states left leg strength is now normal, and left arm is improving Active Medications Current Medications Medications (Trade) Dose Ordered Sig/Lisy Route Start Time Stop Time Status Last Admin (NS Flush) 2 ml BID IV FLUSH 06/04/17 21:00 06/04/17 21:00 IV Flush 2 ml 2 ml UNSCH PRN IV FLUSH 06/04/17 16:15 (NS 1000 ml Inj) 1,000 ml @ 70 mls/hr [id number] IV 06/04/17 16:11 06/04/17 02:00 (NovoLOG SUPPLEMENTAL SCALE) 1 ACHS SQ 06/04/17 21:00 (D50w (Vial) Inj) 50 ml UNSCH PRN IV PUSH 06/04/17 16:15 Glucagon 1 mg 1 mg UNSCH PRN OTHER 06/04/17 16:15 (Heparin-D5W Inj) 250 ml @ 0 mls/hr TITRATE IV 06/04/17 19:00 06/05/17 06:41 (Apresoline Inj) 10 mg Q4HR PRN IV PUSH 06/04/17 23:00 06/05/17 05:13 Allergies Allergies Coded Allergies Contrast Media (Verified Allergy, Severe, Rash, 06/04/17) Shellfish (Verified Allergy, Severe, Anaphylaxis, 06/04/17) Whole Milk (Verified Adverse Reaction, Mild, Appetite Changes(Inc/Dec), 06/04/17 ) Exam I&O / VS 06/04/17 06/04/17 06/05/17 15:00 23:00 07:00 Intake Total 1340 ml 701 ml Output Total 710 ml 550 ml Balance 630 ml 151 ml Intake Oral 100 ml IV Total 540 ml 601 ml Other 800 ml Output Urine Total 700 ml 550 ml Estimated Blood Loss 10 ml # Bowel Movements 0 0 Vital Signs Date Time Temp Pulse Resp B/P Pulse Ox O2 Delivery O2 Flow Rate FiO2 06/05/17 10:14 98.6 78 18 180/84 100 06/05/17 10:00 97 06/05/17 08:14 98.6 66 18 192/84 100 06/05/17 08:00 66 06/05/17 07:52 100 06/05/17 06:00 60 06/05/17 06:00 98.3 60 20 153/75 100 06/05/17 04:00 56 06/05/17 04:00 98.3 56 20 147/56 100 06/05/17 04:00 98.3 56 20 147/56 100 06/05/17 02:00 72 06/05/17 02:00 98.3 72 17 156/72 100 06/05/17 00:00 97.8 65 19 177/99 99 06/05/17 00:00 65 06/04/17 22:00 56 06/04/17 22:00 98.1 56 17 145/67 99 06/04/17 20:00 85 06/04/17 20:00 70 19 154/82 98 Room Air 06/04/17 20:00 98.1 85 20 184/97 99 06/04/17 20:00 99 Room Air 06/04/17 19:45 72 47 18/77 99 Room Air 06/04/17 19:30 88 19 160/80 98 Room Air 06/04/17 19:15 79 18 158/79 98 Room Air 06/04/17 19:00 66 12 166/82 98 Room Air 06/04/17 18:45 98.6 72 12 124/78 100 Simple Mask 8 06/04/17 16:06 61 20 130/68 98 06/04/17 15:40 58 20 123/68 97 06/04/17 15:32 60 20 132/68 98 06/04/17 14:00 53 16 120/71 98 06/04/17 13:32 98 06/04/17 13:32 98 Room Air Exam Comments alert, speech normal, comprhension normal CN normal MOTOR 4/5 LUE, 5/5 LLE Objective Micro and Labs Laboratory Tests Test 06/04/17 06/04/17 06/04/17 06/04/17 13:29 14:00 15:20 19:57 White Blood Count 15.5 Red Blood Count 6.06 Hemoglobin 14.7 Bedside Hemoglobin 17.0 Hematocrit 46.6 Bedside Hematocrit 50.0 Mean Corpuscular Volume 76.8 Mean Corpuscular Hemoglobin 24.2 Mean Corpuscular Hemoglobin 31.5 Concent Red Cell Distribution Width 14.0 Platelet Count 178 Mean Platelet Volume 8.4 Neutrophils (%) (Auto) 64.2 Lymphocytes (%) (Auto) 25.3 Monocytes (%) (Auto) 9.3 Eosinophils (%) (Auto) 0.7 Basophils (%) (Auto) 0.5 Neutrophils # (Auto) 9.9 Lymphocytes # (Auto) 3.9 Monocytes # (Auto) 1.4 Eosinophils # (Auto) 0.1 Basophils # (Auto) 0.1 CBC Comment DIFF FINAL Differential Comment Prothrombin Time 14.0 Prothromb Time International 1.3 Ratio Activated Partial 26.3 91.0 Thromboplast Time Fibrinogen 392 Bedside Sodium 142 Bedside Potassium 3.7 Bedside Chloride 109 Bedside Blood Urea Nitrogen 24 Bedside Creatinine 1.5 Bedside Glucose 127 Total Creatine Kinase 218 Troponin I LESS THAN 0.02 Blood Type A POSITIVE Antibody Screen NEGATIVE Urine Color YELLOW Urine Turbidity HAZY Urine pH 5.5 Urine Specific [place] 1.034 Urine Protein 30 Urine Glucose (UA) NEG Urine Ketones TRACE Urine Occult Blood NEG Urine Nitrite NEG Urine Bilirubin NEG Urine Urobilinogen 4.0 Urine Leukocyte Esterase LARGE Urine RBC 1 Urine WBC 25 Urine WBC Clumps OCC Urine Squamous Epithelial 2 Cells Urine Bacteria OCC Urine Hyaline Casts 10 Urine Mucus MANY Urine Opiates Screen NEG Urine Barbiturates Screen NEG Urine Amphetamines Screen NEG Urine Benzodiazepines Screen NEG Urine Cocaine Screen NEG Urine Cannabinoids Screen NEG Lactic Acid Level 2.6 Test 06/04/17 06/05/17 06/05/17 22:52 02:53 10:30 Activated Partial 48.3 42.8 39.2 Thromboplast Time White Blood Count 13.0 Red Blood Count 5.82 Hemoglobin 14.2 Hematocrit 44.4 Mean Corpuscular Volume 76.3 Mean Corpuscular Hemoglobin 24.3 Mean Corpuscular Hemoglobin 31.9 Concent Red Cell Distribution Width 14.5 Platelet Count 171 Mean Platelet Volume 8.9 Sodium Level 144 Potassium Level 3.6 Chloride Level 112 Carbon Dioxide Level 26.0 Anion Gap 6 Blood Urea Nitrogen 15 Creatinine 1.25 Estimat Glomerular Filtration 77 Rate Random Glucose 103 Calcium Level 8.1 Triglycerides Level 53 Cholesterol Level 88 LDL Cholesterol 41 HDL Cholesterol 36.3 Cholesterol/HDL Ratio 2.42 Date/Time Procedure Status Source Growth 06/04/17 15:20 Aerobic Blood Culture - Preliminary Resulted Blood Peripheral NO GROWTH IN 1 DAY 06/04/17 15:20 Anaerobic Blood Culture - Preliminary Resulted Blood Peripheral NO GROWTH IN 1 DAY 06/04/17 14:00 Urine Culture - Preliminary Resulted Urine Other NO GROWTH IN 24 HOURS. Héctor Preciado PhD Jun 05, 2017 12:01
[2017-06-05] MEDS ORDERED: NIFEdipine 60 MG SUSTAINED RELEASE TAB PO ONE (13:30)
[2017-06-05] MEDS: clonazePAM 1 MG TAB PO PRN (14:29)
[2017-06-05] MEDS: hydrALAZINE HCL 25 MG TAB PO SCH ×2 (14:29→21:49)
[2017-06-05] MEDS ORDERED: GADODIAMIDE PF 287 MG/ML 20 ML VIAL (for RAD MRI) IV ONE (15:33)
--- NOTE | 2017-06-05 16:23 | RADRPT ---
EXAM DATE/TIME: 06/05/2017 15:15 [place] COMPARISON: CT BRAIN W/O CONTRAST, June 04, 2017, 13:35. INDICATIONS : Left sided weakness. CONTRAST: 20 cc Omniscan (gadodiamide) IV MEDICAL HISTORY : Hypertension. SURGICAL HISTORY : Colostomy. Right MCA thromectomy ENCOUNTER: Initial ACUITY: 1 day PAIN SCORE: 0/10 LOCATION: cranial TECHNIQUE: Multiplanar, multisequence MRI of the brain was performed both prior to and following the administrat ion of paramagnetic contrast. FINDINGS: Image set is somewhat limited due to motion artifact throughout. I believe the study is adequate for diagnosis, however. CEREBRUM: The ventricles are normal for age. No evidence of midline shift, mass lesion or hemorrhage qhemorrha ge. No extraaxial fluid collections are seen. The pituitary gland and suprasellar cistern are everardo l in configuration. WHITE MATTER: No significant signal abnormalities are seen in the white matter. POSTERIOR FOSSA: The cerebellum and brainstem are intact. The 4th ventricle is midline. The cerebellopontine angle is unremarkable. The cerebellar tonsils are normal in position. DIFFUSION IMAGING: There are scattered areas of diffusion restriction in the anterior right parietal region, high convex ity right parietal region and right basal ganglia characteristic of an embolic event. EXTRACRANIAL: The visualized portions of the orbits and paranasal sinuses are unremarkable. POST-CONTRAST: No abnormal areas of parenchymal or dural enhancement. No evidence of blood-brain barrier breakdown. CONCLUSION: MR findings suggest a small embolic event to the right MCA territory. Ozzy Swanson MD on June 05, 2017 at 16:16 Board Certified Radiologist. This report was verified electronically.
[2017-06-05 16:47] LABS: APTT (PATIENT) 43.3 SEC (24.3-30.1)
[2017-06-05] MEDS: SODIUM CHLORIDE 0.9% FLUSH 5 ML FLUSH IV FLUSH SCH (20:04)
[2017-06-05] MEDS: TEMAZEPAM 15 MG CAP PO PRN (21:49)
[2017-06-06] VITALS (13 sets, daily range): BP systolic 155–172; BP diastolic 58–103; PULSE 59–112; RESP 18–24; TEMP 98.3–98.5; O2SAT 96–100
[2017-06-06 01:40] LABS: APTT (PATIENT) 44.6 SEC (24.3-30.1)
[2017-06-06] MEDS: hydrALAZINE HCL 20 MG/ML VIAL IV PUSH PRN ×3 (02:40→18:38)
[2017-06-06] MEDS: clonazePAM 1 MG TAB PO PRN ×3 (02:56→21:08)
[2017-06-06] MEDS: hydrALAZINE HCL 25 MG TAB PO SCH ×3 (06:45→20:28)
[2017-06-06] MEDS: INSULIN ASPART SUPPLEMENTAL SCALE SQ SCH ×4 (07:00→21:00)
--- NOTE | 2017-06-06 07:44 | HHI.PR ---
Subjective Remarks Late entry. This note is for 06/05/2017 Follow-up for right MCA stroke, right carotid aneurysm. Patient is currently doing well. Denies any chest pain, shortness of breath, fever or chills. He still has significant left upper extremity weakness. Objective Vitals Vital Signs Date Time Temp Pulse Resp B/P Pulse Ox O2 Delivery O2 Flow Rate FiO2 06/06/17 04:00 80 06/06/17 02:14 98.5 69 18 167/103 99 06/06/17 02:00 69 06/06/17 00:00 67 06/05/17 22:14 98.6 92 17 183/81 99 06/05/17 22:00 92 06/05/17 20:00 62 06/05/17 18:14 98.5 73 18 132/64 06/05/17 18:00 68 06/05/17 16:14 98 18 164/88 06/05/17 16:00 66 06/05/17 14:14 77 18 166/90 06/05/17 14:00 97 06/05/17 12:14 98.5 62 21 163/90 99 06/05/17 12:00 96 06/05/17 10:14 98.6 78 18 180/84 100 06/05/17 10:00 97 06/05/17 08:14 98.6 66 18 192/84 100 06/05/17 08:00 66 06/05/17 07:52 100 I/O 06/05/17 06/05/17 06/05/17 06/06/17 06/06/17 06/06/17 07:00 15:00 23:00 07:00 15:00 23:00 Intake Total 701 ml 1055 ml 504 ml Output Total 550 ml 1300 ml 950 ml Balance 151 ml -245 ml -446 ml Intake Oral 100 ml 300 ml IV Total 601 ml 755 ml 504 ml Output Urine Total 550 ml 1000 ml 950 ml Stool Total 300 ml # Bowel Movements 0 Result Diagram: 06/05/17 0253 06/05/17 0253 Imaging Last Impressions Brain MRI 06/05/17 0000 Signed Impressions: Service Date/Time: Monday, June 05, 2017 15:15 - CONCLUSION: MR findings suggest a small embolic event to the right MCA territory. Ozzy Swanson MD Head CTA 7/8/17 0000 Signed Impressions: Service Date/Time: Sunday, June 04, 2017 14:41 - CONCLUSION: 1. Nondiagnostic CTA examination due to significant patient motion. Plan: Patient will be transferred emergently for cerebral angiography and possible intervention. Amol Kevin MD Head CT 06/04/17 Signed Impressions: Service Date/Time: Sunday, June 04, 2017 13:35 - CONCLUSION: Normal examination. Jey Magaña MD Chest X-Ray 06/04/17 Signed Impressions: Service Date/Time: Sunday, June 04, 2017 13:54 - CONCLUSION: No acute disease. Dejon Durand MD Objective Remarks GENERAL: Alert, oriented 3, NAD. SKIN: Warm and dry. HEAD: Normocephalic. EYES: No scleral icterus. No injection or drainage. NECK: Supple, trachea midline. No JVD or lymphadenopathy. CARDIOVASCULAR: Regular rate and rhythm without murmurs, gallops, or rubs. RESPIRATORY: Breath sounds equal bilaterally. No accessory muscle use. GASTROINTESTINAL: Abdomen soft, non-tender, nondistended. MUSCULOSKELETAL: No cyanosis, or edema. Significant left upper extremity weakness 3/5. BACK: Nontender without obvious deformity. No CVA tenderness. A/P Assessment and Plan Mr. Funk is a 42 y/o male with a history of HTN (not on any medication) presented to the ED with complaints of LUE weakness 40 mins prior to coming to the ED. Right MCA stroke - Stroke alert was called. Neurologist, Dr. Preciado following. - CT scan was done which was negative. Attempted CTA of the head and neck which was nondiagnostic. - Patient had emergent cerebral angiogram which showed right ICA T-lesion with acute on chronic thrombus. Removed acute portion and small amount of chronic thrombus following 3mm plasty. Now non-occlusive chronic thrombus at prox M1 segment. Dealt with both Dr. Preciado and Dr. Rizvi who are both in agreement in anticoagulating despite aneurysm to insure patency since patient is very high risk of reforming thrombosis. - Patient was given bolus in IR and PTT was obtained. Currently on heparin drip - consulted PT/OT/ST. - neuro check. Patient will be monitored in [facility]. - stoke protocol implemented. Cerebral aneurysm - Pending hospital course IR may coil. - Neurology recommended Neurosurgery evaluation. Hypertension - Started patient on nifedipine 60 mg daily, hydralazine 25 mg by mouth every 8 hours. - We'll increase medication as necessary. Acute on Chronic kidney disease -Most likely due to hypoperfusion. Patient is on IV fluids. Creatinine improved from 1.5 --> 1.25. -Continue IV fluids. Strict ins and outs. Avoid nephrotoxins. Full code. Heparin drip. Angel Clark DO Jun 06, 2017 07:44
--- NOTE | 2017-06-06 08:20 | RADRPT ---
EXAM DATE/TIME: 06/04/2017 16:14 [place] COMPARISON: No previous studies available for comparison. 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 Patient was unable to tolerate CT a ngiography and is therefore brought emergently to the angiography suite the very high NIH scores. MEDICAL HISTORY : HTN Dyslipidemia PAD Heart failure SURGICAL HISTORY : Colon resection w/ colonoscopy that was later reversed LLE w/ rods, pins, and screws Hernia repair Right 2nd digit partial amputation ENCOUNTER: Initial ACUITY: 1 day PAIN SCORE: 0/10 FLUORO TIME: 9.2 minutes IMAGE SERIES: 31 ACCESS SITE: Right Femoral artery CONTRAST: 185 cc Visipaque (iodixanol) DEVICE(S): 1.) Right ICA IVÁN 68 mechanical thrombectomy 2.) Right ICA 6mm x 30mm solitare 3.) Right ICA 3mm x 10mm hyperglide MATERNAL CHILD NURSE balloon 4.) Right common femoral artery 8F Angio-Seal TIMELINE: Interventional team called: 1515 pm Interventional team arrived: 1533 pm Interventional team ready: 1540 pm Patient arrival: 1559 pm Groin puncture: 1618 pm Recanalization: 1646 pm PROCEDURE : 1. Ultrasound-guided puncture of the access site. 2. Conscious sedation with continuous EKG and Oximetry monitoring. 3. Selective catheter placement in the right vertebral artery with cerebral angiography. 4. Selective catheter placement in the right carotid artery with cerebral angiography 5. Multiple thrombectomy attempts utilizing Penumbra and Solumbra techniques 6. 3 mm angioplasty of the right ICA terminus The risks, benefits and alternatives to the procedure were explained and verbal and written consent w as obtained. The site was prepped in sterile fashion. Full sterile technique was used, including ca p, mask, sterile gloves and gown and a large sterile sheet. Hand hygiene and 2% chlorhexidine and/or betadine/alcohol prep was utilized per protocol for cutaneous antisepsis. The skin and subcutaneous tissues were infiltrated with local anesthetic solution. With ultrasound and fluoroscopic guidance the selected artery was punctured and a vascular sheath was placed. 4 Indian JB2 catheter was advanced into the right vertebral artery. Angiography was performe d demonstrating patency of the vertebral artery and basilar artery with flow to the posterior cerebra l arteries. The catheter was then repositioned into the right common artery and angiography was perfo rmed. This demonstrated stasis of flow in the right internal carotid artery. The catheter was advance d into the distal cervical segment of the right carotid artery angiography was performed. This demons trated occlusion of the right ICA terminus. 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 Next, an 8 Indian NeuronMax sheath was placed and subsequently advanced into the pr oximal cervical segment of the right internal carotid artery. A Marksman microcatheter and wire were then advanced into a right M2 branch and angiography was performed confirming patency of the distal M CA branches. IVÁN 68 thrombectomy catheter was then advanced over the proximal catheter and to the fac e of the thrombus at the ICA terminus. Following 2 minute suction, the catheter was slowly retracted and removed. Followup angiography demonstrated moderate radiographic improvement with flow through a severely stenosed ICA terminus into primarily MCA branches. Therefore, 2 additional suction thrombect jabari attempts were performed at the concern for chronic thrombus. This resulted in very modest angiogr aphic improvement. Therefore, 2 additional thrombectomy attempts were performed utilizing a 6 x 30 mm Solitare stent retriever device. Again, there was modest angiographic improvement with continued slu ggish flow through the right ICA terminus. Multiple intra-arterial administration of Verapamil yielde d no significant improvement. Therefore, decision was made to perform balloon angioplasty of the ICA terminus. This was achieved with 3 x 10 mm X-pedion balloon. Followup angiography demonstrated signif icant angiographic improvement with nonocclusive chronic appearing adherent thrombus in the ICA termi nus. Therefore, 2 additional thrombectomy attempts were performed utilizing both IVÁN 68 catheter and Solitare retriever with good angiographic results. There was small amount of residual adherent platel beni tbd-jque-jmgjcvun thrombus in the ICA terminus. Therefore, decision was made to terminate the pro cedure at this time. Patient will be anticoagulated to prevent thrombus propagation. Wires and cathet ers were then removed. Puncture site was closed with an 8 Indian Angio-Seal device. The patient tolerated the procedure well and there were no complications. Conscious sedation was performed with the prescribed dosages and duration as above in the presence of an independent trained radiology nurse to assist in the monitoring of the patient. EKG and oximetry remained stable throughout the procedure. CONCLUSION: 1. Occlusion of the right ICA terminus secondary to combination of acute and chronic thrombus. 2. Mechanical thrombectomy was only partially successful in reestablishing flow with significantly di minished flow through the ICA terminus. 3. Marked angiographic improvement following 3 mm balloon angioplasty of the right ICA terminus and a dditional thrombectomy. Minimal residual platelike nxy-suca-[id number] chronic adherent thrombus in the ICA terminus. Otherwise, TICI 3. 4. 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 Amol Kevin MD on June 06, 2017 at 8:03 Board Certified Radiologist. This report was verified electronically.
[2017-06-06] MEDS: SODIUM CHLORIDE 0.9% FLUSH 5 ML FLUSH IV FLUSH SCH ×2 (09:00→20:28)
[2017-06-06] MEDS ORDERED: NIFEdipine 60 MG SUSTAINED RELEASE TAB PO SCH (09:00)
[2017-06-06] MEDS: HEPARIN-D5W INJ 250 ML IV SCH (10:47)
[2017-06-06] MEDS: SODIUM CHLOR 0.9% 1000 ML INJ 1,000 ML IV SCH (11:28)
--- NOTE | 2017-06-06 13:13 | HHI.NSPN ---
History Interval History 42-year-old -[place] gentleman who was admitted on 05/31/2070 after her presented with acute onset of the left arm numbness and weakness which subsequently resolved thereafter. He was seen by neurology service and felt to have a transient ischemic attack. He has a history of hypertension, had not been compliant with his medications. In any case, extensive workup has been undertaken including CT of the head which was negative for any intracranial hemorrhage or acute abnormality. MRI scan of the brain also reveals a small area in the right frontotemporal and parietal lobes consistent with ischemia. 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 Subsequently he also had a lumbar puncture which did not reveal any subarachnoid hemorrhage with 0 red blood cells. 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 06/06/17: Patient readmitted on 06/04/2017 for another stroke with worsening left hemiparesis. He underwent intra-arterial endovascular thrombolysis of the right ICA/MCA thrombus. Overall he has residual left upper extremity weakness. Exam Results Vital Signs Date Time Temp Pulse Resp B/P Pulse Ox O2 Delivery O2 Flow Rate FiO2 06/06/17 12:00 98.5 88 20 172/98 100 06/04/17 20:00 Room Air 06/04/17 18:45 8 Intake and Output 06/05/17 06/05/17 06/06/17 08:00 16:00 00:00 Intake Total 701 ml 1055 ml 504 ml Output Total 550 ml 1300 ml 950 ml Balance 151 ml -245 ml -446 ml Physical Examination GENERAL: Well-nourished, well-developed patient. SKIN: Warm and dry. HEAD: Normocephalic and atraumatic. EYES: No scleral icterus. No injection or drainage. ENT: No nasal drainage noted. Mucous membranes pink. Airway patent. NECK: Supple, trachea midline. No JVD. Complains of some mild neck discomfort CARDIOVASCULAR: Regular rate and rhythm without murmurs, gallops, or rubs. RESPIRATORY: Breath sounds equal bilaterally. No accessory muscle use. GASTROINTESTINAL: Abdomen soft, non-tender, nondistended. EXTREMITIES: No cyanosis or edema. BACK: Nontender without obvious deformity. NEUROLOGICAL: Awake and alert. Pupils Equal and reactive. EOMI. Face slight left facial droop. Tongue midline. Sensory grossly within normal limits. Motor strength right side 5/5 left upper extremity left upper extremity 2-3/5 and left lower extremity 4/5. Normal speech. Normal comprehension. DTR's symmetric. Negative Jensen's reflex. Negative Babinski. Lab, Micro, Other Results Last Impressions Brain MRI 06/05/17 0000 Signed Impressions: Service Date/Time: Monday, June 05, 2017 15:15 - CONCLUSION: MR findings suggest a small embolic event to the right MCA territory. Ozzy Swanson MD Head CTA 06/04/17 0000 Signed Impressions: Service Date/Time: Sunday, June 04, 2017 14:41 - CONCLUSION: 1. Nondiagnostic CTA examination due to significant patient motion. Plan: Patient will be transferred emergently for cerebral angiography and possible intervention. Amol Kevin MD Head CT 06/04/17 0000 Signed Impressions: Service Date/Time: Sunday, June 04, 2017 13:35 - CONCLUSION: Normal examination. Jey Magaña MD Chest X-Ray 06/04/17 0000 Signed Impressions: Service Date/Time: Sunday, June 04, 2017 13:54 - CONCLUSION: No acute disease. Dejon Durand MD Cerebral Arteriogram 06/04/17 0000 Signed Impressions: Service Date/Time: Sunday, June 04, 2017 16:14 - CONCLUSION: 1. Occlusion of the right ICA terminus secondary to combination of acute and chronic thrombus. 2. Mechanical thrombectomy was only partially successful in reestablishing flow with significantly diminished flow through the ICA terminus. 3. Marked angiographic improvement following 3 mm balloon angioplasty of the right ICA terminus and additional thrombectomy. Minimal residual platelike psj-lipu-tkfxttbo chronic adherent thrombus in the ICA terminus. Otherwise, TICI 3. 4. 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 Amol Kevin MD Laboratory Tests Test 06/05/17 06/06/17 06/06/17 16:25 01:04 07:19 Erythrocyte Sedimentation Rate 1 Activated Partial 43.3 44.6 45.0 Thromboplast Time Date/Time Procedure Status Source Growth 06/04/17 15:20 Aerobic Blood Culture - Preliminary Resulted Blood Peripheral NO GROWTH IN 2 DAYS 06/04/17 15:20 Anaerobic Blood Culture - Preliminary Resulted Blood Peripheral NO GROWTH IN 2 DAYS 06/04/17 14:00 Urine Culture - Final Complete Urine Other NO GROWTH IN 48 HOURS. Medical Decision Making Impression and Plan 42-year-old gentleman with a recurrent right MCA stroke status post intra- arterial thrombolysis. He is currently on heparin and plan on transitioning to chronic Coumadin therapy. He has an incidental right ICA 5-6 mm aneurysm. Given the need for chronic anticoagulation, although this is not contraindicated there is a potential increased risk for bleeding and if aneurysm believes the hemorrhage being worse than without anticoagulation. If this aneurysm can be coiled then that would be preferred, otherwise continue with anticoagulation and observation of the aneurysm. Hypertension regulation and smoking cessation is paramount. Discussed with patient who understands and is in agreement. Jeffery Farmer MD Jun 06, 2017 13:12 Jeffery Farmer MD Jun 06, 2017 13:12
--- NOTE | 2017-06-06 15:29 | HHI.PR ---
Subjective Remarks Follow-up for right MCA stroke, right carotid aneurysm. Patient is currently doing well. Denies any chest pain, shortness of breath, fever or chills. His left upper extremity strength is coming back gradually. Objective Vitals Vital Signs Date Time Temp Pulse Resp B/P Pulse Ox O2 Delivery O2 Flow Rate FiO2 06/06/17 14:00 76 06/06/17 12:00 98.5 88 20 172/98 100 06/06/17 12:00 88 06/06/17 10:00 73 06/06/17 08:00 59 06/06/17 08:00 98.3 65 24 160/58 100 06/06/17 06:00 68 06/06/17 04:00 98.5 80 24 169/83 99 06/06/17 04:00 80 06/06/17 02:14 98.5 69 18 167/103 99 06/06/17 02:00 69 06/06/17 00:00 67 06/05/17 22:14 98.6 92 17 183/81 99 06/05/17 22:00 92 06/05/17 20:00 62 06/05/17 18:14 98.5 73 18 132/64 06/05/17 18:00 68 06/05/17 16:14 98 18 164/88 06/05/17 16:00 66 I/O 06/05/17 06/05/17 06/05/17 06/06/17 06/06/17 06/06/17 06:59 14:59 22:59 06:59 14:59 22:59 Intake Total 701 ml 1055 ml 504 ml 717 ml 925 ml Output Total 550 ml 1300 ml 950 ml 650 ml 1350 ml Balance 151 ml -245 ml -446 ml 67 ml -425 ml Intake Oral 100 ml 300 ml 300 ml IV Total 601 ml 755 ml 504 ml 717 ml 625 ml Output Urine Total 550 ml 1000 ml 950 ml 650 ml 1350 ml Stool Total 300 ml # Bowel Movements 0 1 Result Diagram: 06/05/17 0253 06/05/17 0253 Imaging Last Impressions Brain MRI 06/05/17 0000 Signed Impressions: Service Date/Time: Monday, June 05, 2017 15:15 - CONCLUSION: MR findings suggest a small embolic event to the right MCA territory. Ozzy Swanson MD Head CTA 06/04/17 Signed Impressions: Service Date/Time: Sunday, June 04, 2017 14:41 - CONCLUSION: 1. Nondiagnostic CTA examination due to significant patient motion. Plan: Patient will be transferred emergently for cerebral angiography and possible intervention. Amol Kevin MD Head CT 06/04/17 Signed Impressions: Service Date/Time: Sunday, June 04, 2017 13:35 - CONCLUSION: Normal examination. Jey Magaña MD Chest X-Ray 06/04/17 Signed Impressions: Service Date/Time: Sunday, June 04, 2017 13:54 - CONCLUSION: No acute disease. Dejon Durand MD Cerebral Arteriogram 06/04/17 Signed Impressions: Service Date/Time: Sunday, June 04, 2017 16:14 - CONCLUSION: 1. Occlusion of the right ICA terminus secondary to combination of acute and chronic thrombus. 2. Mechanical thrombectomy was only partially successful in reestablishing flow with significantly diminished flow through the ICA terminus. 3. Marked angiographic improvement following 3 mm balloon angioplasty of the right ICA terminus and additional thrombectomy. Minimal residual platelike bsg-dgxh-lhycodsr chronic adherent thrombus in the ICA terminus. Otherwise, TICI 3. 4. 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 Amol Kevin MD Objective Remarks GENERAL: Alert, oriented 3, NAD. SKIN: Warm and dry. HEAD: Normocephalic. EYES: No scleral icterus. No injection or drainage. NECK: Supple, trachea midline. No JVD or lymphadenopathy. CARDIOVASCULAR: Regular rate and rhythm without murmurs, gallops, or rubs. RESPIRATORY: Breath sounds equal bilaterally. No accessory muscle use. GASTROINTESTINAL: Abdomen soft, non-tender, nondistended. MUSCULOSKELETAL: No cyanosis, or edema. left upper extremity weakness 4/5. BACK: Nontender without obvious deformity. No CVA tenderness. Procedures 06/04/2017 Cerebral arteriogram - mechanical thrombectomy A/P Assessment and Plan Mr. Funk is a 42 y/o male with a history of HTN (not on any medication) presented to the ED with complaints of LUE weakness 40 mins prior to coming to the ED. - Right MCA stroke - Cerebral aneurysm - Stroke alert was called. Neurologist, Dr. Preciado following. - CT scan was done which was negative. - Patient had emergent cerebral angiogram which showed right ICA T-lesion with acute on chronic thrombus. Removed acute portion and small amount of chronic thrombus following 3mm plasty. Now non-occlusive chronic thrombus at prox M1 segment. Dr. Preciado and Dr. Rizvi (IR) who are both in agreement in anticoagulating despite aneurysm to ensure patency since patient is very high risk of reforming thrombosis. - Patient was given bolus in IR and PTT was obtained. Currently on heparin drip - consulted PT/OT/ST. - Continue neuro check. - Dr. Farmer (Neurosurgery) evaluated patient --> If possible, coiling aneurysm would be preferred. IF not, anti-coagulation and close follow up was recommended. - Hypertension - Currently on nifedipine 60 mg daily, hydralazine 25 mg by mouth every 8 hours. - Will increase Nifedipine to 90mg Qday and Hydralazine to 50mg Q8hrs. - Acute on Chronic kidney disease - Most likely due to hypoperfusion. Patient is on IV fluids. Creatinine improved from 1.5 --> 1.25. - Continue IV fluids. Avoid nephrotoxins. Full code. Heparin drip. Angel Clark DO Jun 06, 2017 15:29
--- NOTE | 2017-06-06 17:35 | HHI.PR ---
Review/Management Diagnosis Right MCA stroke--improved after endovascular therapy right carotid aneurysm Plan continue iv heparin recommend jail therapy with coumadin consult with neurosurgery regarding aneurysm if view of jail anticoagulation Check labs to r/o hypercoagulable state JENNIFER to r/o PFO Diagnosis/Plan: Subjective Subjective Comments No acute events reported feels left sided strength is improving Active Medications Current Medications Medications (Trade) Dose Ordered Sig/Lisy Route Start Time Stop Time Status Last Admin (NS Flush) 2 ml BID IV FLUSH 06/04/17 21:00 06/06/17 09:00 IV Flush 2 ml 2 ml UNSCH PRN IV FLUSH 06/04/17 16:15 (NS 1000 ml Inj) 1,000 ml @ 70 mls/hr [id number] IV 06/04/17 16:11 06/06/17 11:28 (NovoLOG SUPPLEMENTAL SCALE) 1 ACHS SQ 06/04/17 21:00 (D50w (Vial) Inj) 50 ml UNSCH PRN IV PUSH 06/04/17 16:15 Glucagon 1 mg 1 mg UNSCH PRN OTHER 06/04/17 16:15 (Heparin-D5W Inj) 250 ml @ 0 mls/hr TITRATE IV 06/04/17 19:00 06/06/17 10:47 (Apresoline Inj) 10 mg Q4HR PRN IV PUSH 06/04/17 23:00 06/06/17 10:24 (KlonoPIN) 1 mg Q8HR PRN PO 06/05/17 13:30 06/06/17 12:06 (Restoril) 30 mg HS PRN PO 06/05/17 13:30 06/05/17 21:49 (Apresoline) 50 mg Q8HR PO 06/06/17 14:00 06/06/17 14:23 (Procardia Xl) 90 mg DAILY PO 06/07/17 09:00 Allergies Allergies Coded Allergies Contrast Media (Verified Allergy, Severe, Rash, 06/04/17) Shellfish (Verified Allergy, Severe, Anaphylaxis, 06/04/17) Whole Milk (Verified Adverse Reaction, Mild, Appetite Changes(Inc/Dec), 06/04/17 ) Exam I&O / VS 06/05/17 06/05/17 06/06/17 15:00 23:00 07:00 Intake Total 1055 ml 504 ml 717 ml Output Total 1300 ml 950 ml 650 ml Balance -245 ml -446 ml 67 ml Intake Oral 300 ml IV Total 755 ml 504 ml 717 ml Output Urine Total 1000 ml 950 ml 650 ml Stool Total 300 ml # Bowel Movements 1 Vital Signs Date Time Temp Pulse Resp B/P Pulse Ox O2 Delivery O2 Flow Rate FiO2 06/06/17 14:00 76 06/06/17 12:00 98.5 88 20 172/98 100 06/06/17 12:00 88 06/06/17 10:00 73 06/06/17 08:00 59 06/06/17 08:00 98.3 65 24 160/58 100 06/06/17 06:00 68 06/06/17 04:00 98.5 80 24 169/83 99 06/06/17 04:00 80 06/06/17 02:14 98.5 69 18 167/103 99 06/06/17 02:00 69 06/06/17 00:00 67 06/05/17 22:14 98.6 92 17 183/81 99 06/05/17 22:00 92 06/05/17 20:00 62 06/05/17 18:14 98.5 73 18 132/64 06/05/17 18:00 68 Exam Comments alert, speech normal, comprhension normal CN normal MOTOR 4/5 LUE, 5/5 LLE Objective Micro and Labs Laboratory Tests Test 06/06/17 06/06/17 01:04 07:19 Activated Partial 44.6 45.0 Thromboplast Time Date/Time Procedure Status Source Growth 06/04/17 15:20 Aerobic Blood Culture - Preliminary Resulted Blood Peripheral NO GROWTH IN 2 DAYS 06/04/17 15:20 Anaerobic Blood Culture - Preliminary Resulted Blood Peripheral NO GROWTH IN 2 DAYS 06/04/17 14:00 Urine Culture - Final Complete Urine Other NO GROWTH IN 48 HOURS. Héctor Preciado PhD Jun 06, 2017 17:35
[2017-06-06] MEDS: TEMAZEPAM 15 MG CAP PO PRN (20:45)
[2017-06-07] VITALS (12 sets, daily range): BP systolic 132–174; BP diastolic 68–90; PULSE 78–106; RESP 19–27; TEMP 97.9–98.7; O2SAT 93–100
[2017-06-07] MEDS: SODIUM CHLOR 0.9% 1000 ML INJ 1,000 ML IV SCH ×2 (01:32→15:17)
[2017-06-07 04:52] LABS: APTT (PATIENT) 43.7 SEC (24.3-30.1)
[2017-06-07 05:45] LABS: HEMATOCRIT 43.5 % (39.0-51.0); MEAN CELL VOLUME 76.3 FL (80.0-100.0); MEAN CORPUSCULAR HEMOGLOBIN 24.9 PG (27.0-34.0); MEAN CORPUSCULAR HGB CONC 32.6 % (32.0-36.0); PLATELET COUNT 191 TH/MM3 (150-450); RED CELL DISTRIBUTION WIDTH 14.3 % (11.6-17.2); REVIEW FLAG FINAL; WHITE BLOOD COUNT 8.8 TH/MM3 (4.0-11.0)
[2017-06-07] MEDS: INSULIN ASPART SUPPLEMENTAL SCALE SQ SCH ×4 (07:00→21:09)
[2017-06-07] MEDS: hydrALAZINE HCL 25 MG TAB PO SCH ×3 (08:22→21:09)
[2017-06-07] MEDS: NIFEdipine 90 MG SUSTAINED RELEASE TAB PO SCH (08:41)
[2017-06-07] MEDS: SODIUM CHLORIDE 0.9% FLUSH 5 ML FLUSH IV FLUSH SCH ×2 (08:41→21:10)
[2017-06-07] MEDS: hydrALAZINE HCL 20 MG/ML VIAL IV PUSH PRN ×2 (10:30→18:49)
--- NOTE | 2017-06-07 11:07 | RADRPT ---
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 He is immediately status post thrombectomy and angioplasty of the right ICA terminus following massiv e right-sided CVA. During thrombectomy, he was noted to have chronic thrombus in the ICA terminus wit h small residual nonocclusive chronic thrombus following thrombectomy. He has responded clinically we ll with minor residual deficits. He will need to remain on anticoagulation despite the aneurysm given concern for propagation of thrombus in the right ICA terminus. His aneurysm is amenable to coil embo lization but we will defer intervention for at least 6 months to allow sufficient endothelialization of the ICA terminus. Amol Kevin MD on June 07, 2017 at 10:59 Board Certified Radiologist. This report was verified electronically.
[2017-06-07] MEDS: clonazePAM 1 MG TAB PO PRN (13:00)
[2017-06-07] MEDS: HEPARIN-D5W INJ 250 ML IV SCH (13:36)
--- NOTE | 2017-06-07 14:44 | HHI.PR ---
Subjective Remarks Follow-up for right MCA stroke, right carotid aneurysm. Patient is doing well. He is able to move his left hand although he is not able to grasp things normally. No chest pain, shortness of breath, fever or chills. Objective Vitals Vital Signs Date Time Temp Pulse Resp B/P Pulse Ox O2 Delivery O2 Flow Rate FiO2 06/07/17 14:00 81 06/07/17 12:00 94 06/07/17 12:00 98.0 93 19 152/86 100 06/07/17 10:00 86 06/07/17 08:00 98 06/07/17 08:00 97.9 98 20 174/86 100 06/07/17 06:00 78 06/07/17 04:00 78 06/07/17 04:00 98.7 78 27 152/85 96 06/07/17 02:00 89 06/07/17 00:00 98.5 95 25 146/90 96 06/07/17 00:00 95 06/06/17 22:00 97 06/06/17 20:00 98.3 112 23 155/82 96 06/06/17 20:00 97 06/06/17 18:00 98 06/06/17 16:00 98.4 95 23 165/86 100 06/06/17 16:00 85 I/O 06/06/17 06/06/17 06/06/17 06/07/17 06/07/17 06/07/17 07:00 15:00 23:00 07:00 15:00 23:00 Intake Total 717 ml 925 ml 910 ml 489 ml Output Total 650 ml 1350 ml 1400 ml 600 ml Balance 67 ml -425 ml -490 ml -111 ml Intake Oral 300 ml 480 ml IV Total 717 ml 625 ml 430 ml 489 ml Output Urine Total 650 ml 1350 ml 1400 ml 600 ml # Bowel Movements 1 0 0 Result Diagram: 06/07/17 0402 06/05/17 0253 Imaging Last Impressions Brain MRI 06/05/17 0000 Signed Impressions: Service Date/Time: Monday, June 05, 2017 15:15 - CONCLUSION: MR findings suggest a small embolic event to the right MCA territory. Ozzy Swanson MD Head CTA 06/04/17 0000 Signed Impressions: Service Date/Time: Sunday, June 04, 2017 14:41 - CONCLUSION: 1. Nondiagnostic CTA examination due to significant patient motion. Plan: Patient will be transferred emergently for cerebral angiography and possible intervention. Amol Kevin MD Head CT 06/04/17 0000 Signed Impressions: Service Date/Time: Sunday, June 04, 2017 13:35 - CONCLUSION: Normal examination. Jey Magaña MD Chest X-Ray 06/04/17 0000 Signed Impressions: Service Date/Time: Sunday, June 04, 2017 13:54 - CONCLUSION: No acute disease. Dejon Durand MD Cerebral Arteriogram 06/04/17 0000 Signed Impressions: Service Date/Time: Sunday, June 04, 2017 16:14 - CONCLUSION: 1. Occlusion of the right ICA terminus secondary to combination of acute and chronic thrombus. 2. Mechanical thrombectomy was only partially successful in reestablishing flow with significantly diminished flow through the ICA terminus. 3. Marked angiographic improvement following 3 mm balloon angioplasty of the right ICA terminus and additional thrombectomy. Minimal residual platelike [id number] chronic adherent thrombus in the ICA terminus. Otherwise, TICI 3. 4. 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 Amol Kevin MD Objective Remarks GENERAL: Alert, oriented 3, NAD. SKIN: Warm and dry. HEAD: Normocephalic. EYES: No scleral icterus. No injection or drainage. NECK: Supple, trachea midline. No JVD or lymphadenopathy. CARDIOVASCULAR: Regular rate and rhythm without murmurs, gallops, or rubs. RESPIRATORY: Breath sounds equal bilaterally. No accessory muscle use. GASTROINTESTINAL: Abdomen soft, non-tender, nondistended. MUSCULOSKELETAL: No cyanosis, or edema. left upper extremity weakness 4/5. BACK: Nontender without obvious deformity. No CVA tenderness. Procedures 06/04/2017 Cerebral arteriogram - mechanical thrombectomy A/P Assessment and Plan Mr. Funk is a 42 y/o male with a history of HTN (not on any medication) presented to the ED with complaints of LUE weakness 40 mins prior to coming to the ED. - Right MCA stroke - Cerebral aneurysm - Neurologist, Dr. Preciado following. - Patient had emergent cerebral angiogram which showed right ICA T-lesion with acute on chronic thrombus. Removed acute portion and small amount of chronic thrombus following 3mm plasty. Now non-occlusive chronic thrombus at prox M1 segment. Dr. Precaido and Dr. Rizvi (IR) who are both in agreement in anticoagulating despite aneurysm to ensure patency since patient is very high risk of reforming thrombosis. - IR recommends waiting 6 months before aneurysm coiled. - Waiting for Neurology to make recommendation regarding anti-coagulation. Apixaban might be better due to potentially better compliance and therapeutic steadiness. - Currently on heparin drip - consulted PT/OT/ST. - Continue neuro check. - Hypertension - Continue Nifedipine to 90mg Qday and Hydralazine to 50mg Q8hrs. - Start HCTZ 25mg Qday. - Acute on Chronic kidney disease - Most likely due to hypoperfusion. Patient is on IV fluids. Creatinine improved from 1.5 --> 1.25. - Continue IV fluids. Avoid nephrotoxins. Will check BMP in the AM. Full code. Heparin drip. Angel Clark DO Jun 07, 2017 2:44 pm
[2017-06-07] MEDS ORDERED: traMADol HCL 50 MG TAB PO PRN (14:45)
[2017-06-07] MEDS ORDERED: ACETAMINOPHEN 325 MG TAB PO PRN (14:45)
[2017-06-08] VITALS (12 sets, daily range): BP systolic 139–160; BP diastolic 65–102; PULSE 68–110; RESP 14–28; TEMP 98–98.5; O2SAT 97–100
[2017-06-08] MEDS: clonazePAM 1 MG TAB PO PRN (03:03)
[2017-06-08 05:33] LABS: BICARBONATE 23.4 MEQ/L (21.0-32.0); POTASSIUM 3.5 MEQ/L (3.5-5.1)
[2017-06-08] MEDS: SODIUM CHLOR 0.9% 1000 ML INJ 1,000 ML IV SCH (06:05)
[2017-06-08] MEDS: hydrALAZINE HCL 25 MG TAB PO SCH ×3 (06:05→20:34)
[2017-06-08 06:57] LABS: APTT (PATIENT) 34.5 SEC (24.3-30.1)
[2017-06-08] MEDS: INSULIN ASPART SUPPLEMENTAL SCALE SQ SCH ×4 (07:00→20:33)
[2017-06-08] MEDS: SODIUM CHLORIDE 0.9% FLUSH 5 ML FLUSH IV FLUSH SCH ×2 (08:12→20:27)
[2017-06-08] MEDS: NIFEdipine 90 MG SUSTAINED RELEASE TAB PO SCH (08:12)
[2017-06-08] MEDS: hydrALAZINE HCL 20 MG/ML VIAL IV PUSH PRN (08:12)
[2017-06-08] MEDS: HYDROCHLOROTHIAZIDE 25 MG TAB PO SCH (08:13)
[2017-06-08 13:59] LABS: APTT (PATIENT) 43.3 SEC (24.3-30.1)
--- NOTE | 2017-06-08 14:04 | HHI.PR ---
Subjective Remarks Follow-up for right MCA stroke, right carotid aneurysm. She does currently doing well. No acute concerns. His left arm resisted week. No fever or chills. Objective Vitals Vital Signs Date Time Temp Pulse Resp B/P Pulse Ox O2 Delivery O2 Flow Rate FiO2 06/08/17 12:00 85 06/08/17 12:00 98.0 85 14 142/86 100 06/08/17 10:00 110 06/08/17 08:00 110 06/08/17 08:00 98.1 98 20 159/79 99 06/08/17 06:00 68 06/08/17 04:00 74 06/08/17 04:00 98.2 74 28 139/65 97 06/08/17 02:00 98 06/08/17 00:00 98.5 80 22 160/72 97 06/08/17 00:00 80 06/07/17 22:00 89 06/07/17 20:00 106 06/07/17 20:00 98.2 88 22 132/68 93 06/07/17 18:00 86 06/07/17 16:00 98.3 88 25 132/68 96 06/07/17 16:00 88 I/O 06/07/17 06/07/17 06/07/17 06/08/17 06/08/17 06/08/17 07:00 15:00 23:00 07:00 15:00 23:00 Intake Total 489 ml 912 ml 779 ml 810 ml Output Total 600 ml 1800 ml 1000 ml 500 ml Balance -111 ml -888 ml -221 ml 310 ml Intake Oral 200 ml 240 ml 240 ml IV Total 489 ml 712 ml 539 ml 570 ml Output Urine Total 600 ml 1550 ml 1000 ml 500 ml Stool Total 250 ml # Voids 2 # Bowel Movements 0 1 0 1 Result Diagram: 06/07/17 0402 06/08/17 0415 Imaging Last Impressions Brain MRI 06/05/17 0000 Signed Impressions: Service Date/Time: Monday, June 05, 2017 15:15 - CONCLUSION: MR findings suggest a small embolic event to the right MCA territory. Ozzy Swanson MD Head CTA 06/04/17 0000 Signed Impressions: Service Date/Time: Sunday, June 04, 2017 14:41 - CONCLUSION: 1. Nondiagnostic CTA examination due to significant patient motion. Plan: Patient will be transferred emergently for cerebral angiography and possible intervention. Amol Kevin MD Head CT 06/04/17 0000 Signed Impressions: Service Date/Time: Sunday, June 04, 2017 13:35 - CONCLUSION: Normal examination. Jey Magaña MD Chest X-Ray 06/04/17 Signed Impressions: Service Date/Time: Sunday, June 04, 2017 13:54 - CONCLUSION: No acute disease. Dejon Durand MD Cerebral Arteriogram 06/04/17 0000 Signed Impressions: Service Date/Time: Sunday, June 04, 2017 16:14 - CONCLUSION: 1. Occlusion of the right ICA terminus secondary to combination of acute and chronic thrombus. 2. Mechanical thrombectomy was only partially successful in reestablishing flow with significantly diminished flow through the ICA terminus. 3. Marked angiographic improvement following 3 mm balloon angioplasty of the right ICA terminus and additional thrombectomy. Minimal residual platelike [id number] chronic adherent thrombus in the ICA terminus. Otherwise, TICI 3. 4. 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 Amol Kevin MD Objective Remarks GENERAL: Alert, oriented 3, NAD. SKIN: Warm and dry. HEAD: Normocephalic. EYES: No scleral icterus. No injection or drainage. NECK: Supple, trachea midline. No JVD or lymphadenopathy. CARDIOVASCULAR: Regular rate and rhythm without murmurs, gallops, or rubs. RESPIRATORY: Breath sounds equal bilaterally. No accessory muscle use. GASTROINTESTINAL: Abdomen soft, non-tender, nondistended. MUSCULOSKELETAL: No cyanosis, or edema. left upper extremity weakness 4/5. BACK: Nontender without obvious deformity. No CVA tenderness. Procedures 06/04/2017 Cerebral arteriogram - mechanical thrombectomy A/P Assessment and Plan Mr. Funk is a 42 y/o male with a history of HTN (not on any medication) presented to the ED with complaints of LUE weakness 40 mins prior to coming to the ED. - Right MCA stroke - Cerebral aneurysm - Neurologist, Dr. Preciado following. - Patient had emergent cerebral angiogram which showed right ICA T-lesion with acute on chronic thrombus. Removed acute portion and small amount of chronic thrombus following 3mm plasty. Now non-occlusive chronic thrombus at prox M1 segment. Dr. Preciado and Dr. Rizvi (IR) who are both in agreement in anticoagulating despite aneurysm to ensure patency since patient is very high risk of reforming thrombosis. - IR recommends waiting 6 months before aneurysm coiled. - Currently on heparin drip. Discussed with Dr. Preciado who recommended starting warfarin. - We'll start warfarin with a goal INR 2-3. Continue heparin drip. Also place a warfarin consult. - Continue neuro check. - Hypertension - Continue Nifedipine to 90mg Qday and Hydralazine to 50mg Q8hrs. - continue HCTZ 25mg Qday. - Acute on Chronic kidney disease - Most likely due to hypoperfusion. Patient is on IV fluids. Creatinine improved from 1.5 --> 1.25 --> 0.96 - D/C IV fluids. Avoid nephrotoxins. Full code. Heparin drip. Warfarin. Angel Clark DO Jun 08, 2017 2:04 pm
[2017-06-08 15:14] LABS: INTERNATIONAL NORMALIZED RATIO 1.3 RATIO
--- NOTE | 2017-06-08 16:19 | HHI.PR ---
Review/Management Diagnosis Right MCA stroke--improved after endovascular therapy right carotid aneurysm Plan start coumadin consider aneurysm coiling when more stable. Diagnosis/Plan: Subjective Subjective Comments No acute events reported feels left sided strength improving Active Medications Current Medications Medications (Trade) Dose Ordered Sig/Lisy Route Start Time Stop Time Status Last Admin (NS Flush) 2 ml BID IV FLUSH 06/04/17 21:00 06/08/17 08:12 IV Flush 2 ml 2 ml UNSCH PRN IV FLUSH 06/04/17 16:15 (NS 1000 ml Inj) 1,000 ml @ 70 mls/hr [id number] IV 06/04/17 16:11 06/08/17 06:05 (NovoLOG SUPPLEMENTAL SCALE) 1 ACHS SQ 06/04/17 21:00 (D50w (Vial) Inj) 50 ml UNSCH PRN IV PUSH 06/04/17 16:15 Glucagon 1 mg 1 mg UNSCH PRN OTHER 06/04/17 16:15 (Heparin-D5W Inj) 250 ml @ 0 mls/hr TITRATE IV 06/04/17 19:00 06/07/17 13:36 (Apresoline Inj) 10 mg Q4HR PRN IV PUSH 06/04/17 23:00 06/08/17 08:12 (KlonoPIN) 1 mg Q8HR PRN PO 06/05/17 13:30 06/08/17 03:03 (Restoril) 30 mg HS PRN PO 06/05/17 13:30 06/06/17 20:45 (Apresoline) 50 mg Q8HR PO 06/06/17 14:00 06/08/17 14:25 (Procardia Xl) 90 mg DAILY PO 06/07/17 09:00 06/08/17 08:12 (Hydrodiuril) 25 mg DAILY PO 06/08/17 09:00 06/08/17 08:13 (Ultram) 50 mg Q8H PRN PO 06/07/17 14:45 (Tylenol) 650 mg Q4H PRN PO 06/07/17 14:45 Warfarin Sodium 5 mg 5 mg DAILY@1600 PO 06/08/17 16:00 (Coumadin Consult Pharmacy) 0 ml @ 0 mls/hr UNSCH OTHER 06/08/17 14:15 Allergies Allergies Coded Allergies Contrast Media (Verified Allergy, Severe, Rash, 7/8/17) Shellfish (Verified Allergy, Severe, Anaphylaxis, 06/04/17) Whole Milk (Verified Adverse Reaction, Mild, Appetite Changes(Inc/Dec), 06/04/17 ) Exam I&O / VS 06/07/17 06/07/17 06/08/17 15:00 23:00 07:00 Intake Total 912 ml 779 ml 810 ml Output Total 1800 ml 1000 ml 500 ml Balance -888 ml -221 ml 310 ml Intake Oral 200 ml 240 ml 240 ml IV Total 712 ml 539 ml 570 ml Output Urine Total 1550 ml 1000 ml 500 ml Stool Total 250 ml # Voids 2 # Bowel Movements 1 0 1 Vital Signs Date Time Temp Pulse Resp B/P Pulse Ox O2 Delivery O2 Flow Rate FiO2 06/08/17 14:00 81 06/08/17 12:00 85 06/08/17 12:00 98.0 85 14 142/86 100 06/08/17 10:00 110 06/08/17 08:00 110 06/08/17 08:00 98.1 98 20 159/79 99 06/08/17 06:00 68 06/08/17 04:00 74 06/08/17 04:00 98.2 74 28 139/65 97 06/08/17 02:00 98 06/08/17 00:00 98.5 80 22 160/72 97 06/08/17 00:00 80 06/07/17 22:00 89 06/07/17 20:00 106 06/07/17 20:00 98.2 88 22 132/68 93 06/07/17 18:00 86 Exam Comments alert, speech normal, comprhension normal CN normal MOTOR 4+/5 LUE, 5/5 LLE Objective Micro and Labs Laboratory Tests Test 06/08/17 06/08/17 06/08/17 04:15 13:36 14:25 Activated Partial 34.5 43.3 Thromboplast Time Sodium Level 142 Potassium Level 3.5 Chloride Level 109 Carbon Dioxide Level 23.4 Anion Gap 10 Blood Urea Nitrogen 13 Creatinine 0.96 Estimat Glomerular Filtration 105 Rate Random Glucose 95 Calcium Level 8.8 Prothrombin Time 15.0 Prothromb Time International 1.3 Ratio Date/Time Procedure Status Source Growth 06/04/17 15:20 Aerobic Blood Culture - Preliminary Resulted Blood Peripheral NO GROWTH IN 4 DAYS 06/04/17 15:20 Anaerobic Blood Culture - Preliminary Resulted Blood Peripheral NO GROWTH IN 4 DAYS 06/04/17 15:20 Aerobic Blood Culture - Final Resulted Blood Peripheral Staphylococcus Epidermidis 06/04/17 15:20 Anaerobic Blood Culture - Preliminary Resulted Blood Peripheral NO GROWTH IN 4 DAYS 06/04/17 14:00 Urine Culture - Final Complete Urine Other NO GROWTH IN 48 HOURS. Héctor Preciado PhD Jun 08, 2017 16:19
[2017-06-08] MEDS: WARFARIN SOD 5 MG TAB PO SCH (16:35)
[2017-06-08 21:23] LABS: APTT (PATIENT) 42.8 SEC (24.3-30.1)
[2017-06-09] VITALS (11 sets, daily range): BP systolic 115–162; BP diastolic 61–95; PULSE 73–94; RESP 18–26; TEMP 97.6–98.9; O2SAT 96–98
[2017-06-09] MEDS: hydrALAZINE HCL 20 MG/ML VIAL IV PUSH PRN (04:05)
[2017-06-09 05:38] LABS: INTERNATIONAL NORMALIZED RATIO 1.3 RATIO; PROTHROMBIN TIME - PATIENT 14.3 SEC (9.8-11.6)
[2017-06-09] MEDS: hydrALAZINE HCL 25 MG TAB PO SCH ×3 (05:45→21:17)
[2017-06-09] MEDS: INSULIN ASPART SUPPLEMENTAL SCALE SQ SCH ×4 (05:47→21:00)
[2017-06-09 07:54] LABS: THROMBIN TIME FOR LA ND sec (13-19)
--- NOTE | 2017-06-09 08:57 | HHI.PR ---
Subjective Remarks f/u for right MCA stroke, right carotid aneurysm. Pt denies any CP/SOB/N/V. States that left upper extremity weakness is about the same. He has been doing his exercises. He doesn't want to go to rehab because he "must return home and pay bills". 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 He also tells me that he has no insurance but was told about patient assistance program. Objective Vitals Vital Signs Date Time Temp Pulse Resp B/P Pulse Ox O2 Delivery O2 Flow Rate FiO2 06/09/17 06:00 77 06/09/17 04:00 97.9 73 19 162/95 98 06/09/17 04:00 74 06/09/17 02:00 78 06/09/17 00:00 81 06/09/17 00:00 98.6 94 22 115/61 97 06/08/17 22:00 79 06/08/17 20:00 89 06/08/17 20:00 98.3 90 20 143/92 99 06/08/17 18:00 83 06/08/17 16:00 86 06/08/17 16:00 98.3 86 16 157/102 100 06/08/17 14:00 81 06/08/17 12:00 85 06/08/17 12:00 98.0 85 14 142/86 100 06/08/17 10:00 110 I/O 06/08/17 06/08/17 06/08/17 06/09/17 06/09/17 06/09/17 07:00 15:00 23:00 07:00 15:00 23:00 Intake Total 810 ml 1119 ml 1169 ml 343 ml Output Total 500 ml 400 ml 450 ml 640 ml Balance 310 ml 719 ml 719 ml -297 ml Intake Oral 240 ml 450 ml 620 ml 240 ml IV Total 570 ml 669 ml 549 ml 103 ml Output Urine Total 500 ml 400 ml 450 ml 640 ml # Voids 2 # Bowel Movements 1 1 0 1 Result Diagram: 06/07/17 0402 06/08/17 0415 Imaging Last Impressions Brain MRI 06/05/17 0000 Signed Impressions: Service Date/Time: Monday, June 05, 2017 15:15 - CONCLUSION: MR findings suggest a small embolic event to the right MCA territory. Ozzy Swanson MD Head CTA 06/04/17 0000 Signed Impressions: Service Date/Time: Sunday, June 04, 2017 14:41 - CONCLUSION: 1. Nondiagnostic CTA examination due to significant patient motion. Plan: Patient will be transferred emergently for cerebral angiography and possible intervention. Amol Kevin MD Head CT 06/04/17 Signed Impressions: Service Date/Time: Sunday, June 04, 2017 13:35 - CONCLUSION: Normal examination. Jey Magaña MD Chest X-Ray 06/04/17 Signed Impressions: Service Date/Time: Sunday, June 04, 2017 13:54 - CONCLUSION: No acute disease. Dejon Durand MD Cerebral Arteriogram 06/04/17 Signed Impressions: Service Date/Time: Sunday, June 04, 2017 16:14 - CONCLUSION: 1. Occlusion of the right ICA terminus secondary to combination of acute and chronic thrombus. 2. Mechanical thrombectomy was only partially successful in reestablishing flow with significantly diminished flow through the ICA terminus. 3. Marked angiographic improvement following 3 mm balloon angioplasty of the right ICA terminus and additional thrombectomy. Minimal residual platelike [id number] chronic adherent thrombus in the ICA terminus. Otherwise, TICI 3. 4. 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 Amol Kevin MD Objective Remarks GENERAL: Alert, oriented 3, NAD. SKIN: Warm and dry. HEAD: Normocephalic. EYES: No scleral icterus. No injection or drainage. EOMI NECK: Supple, trachea midline. CARDIOVASCULAR: Regular rate and rhythm without murmurs RESPIRATORY: Breath sounds equal bilaterally. No accessory muscle use. no wheezing or crackles GASTROINTESTINAL: Abdomen soft, non-tender, nondistended. MUSCULOSKELETAL: No cyanosis, or edema. left upper extremity: has to use his right extremity to assist the left. 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 he does have some numbness in his forearm. he does have some movement at the shoulder Procedures 06/04/2017 Cerebral arteriogram - mechanical thrombectomy A/P Assessment and Plan Mr. Funk is a 42 y/o male with a history of HTN (not on any medication) presented to the ED with complaints of LUE weakness 40 mins prior to coming to the ED. - Right MCA stroke - Cerebral aneurysm - Neurologist, Dr. Preciado following. - Patient had emergent cerebral angiogram which showed right ICA T-lesion with acute on chronic thrombus. Removed acute portion and small amount of chronic thrombus following 3mm plasty. Now non-occlusive chronic thrombus at prox M1 segment. Previous hospitalist discussed w Dr. Preciado and Dr. Rizvi (IR) who are both in agreement in anticoagulating despite aneurysm to ensure patency since patient is very high risk of reforming thrombosis. Recommendations were to anticoagulate w heparin/coumadin until INR therapeutic w goal of 2-3. Warfarin has been started w warfarin consult in place. INR today is 1.3 - IR recommends waiting 6 months before aneurysm coiled. - Continue neuro check. 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 I discussed the case w CM and she will talk to patient to see what options are available to him. - Hypertension - Continue Nifedipine to 90mg Qday and Hydralazine to 50mg Q8hrs. - continue HCTZ 25mg Qday. - BPs somewhat labile, monitor closely and adjust BP meds as needed. - Acute on Chronic kidney disease - Most likely due to hypoperfusion. Patient is on IV fluids. Creatinine improved from 1.5 --> 1.25 --> 0.96 - D/C IV fluids. Avoid nephrotoxins. Full code. Heparin drip. Warfarin. Discharge Planning transfer to regular floor. Cora Valentin MD Jun 09, 2017 08:57
[2017-06-09] MEDS: SODIUM CHLORIDE 0.9% FLUSH 5 ML FLUSH IV FLUSH SCH ×2 (09:00→21:18)
[2017-06-09] MEDS: HYDROCHLOROTHIAZIDE 25 MG TAB PO SCH (09:14)
[2017-06-09] MEDS: NIFEdipine 90 MG SUSTAINED RELEASE TAB PO SCH (09:15)
[2017-06-09] MEDS: WARFARIN SOD 5 MG TAB PO SCH (16:09)
[2017-06-09 21:19] LABS: APTT (PATIENT) 46.4 SEC (24.3-30.1)
--- NOTE | 2017-06-09 22:40 | HHI.PR ---
Review/Management Diagnosis Right MCA stroke--improved after endovascular therapy right carotid aneurysm hypercoag labs negative Plan start coumadin consider aneurysm coiling when more stable in 6 months cardiology consult for JENNIFER Diagnosis/Plan: Subjective Subjective Comments No acute events reported He feels left sided strength is improving Active Medications Current Medications Medications (Trade) Dose Ordered Sig/Lisy Route Start Time Stop Time Status Last Admin (NS Flush) 2 ml BID IV FLUSH 06/04/17 21:00 06/09/17 21:18 (NS Flush) 2 ml UNSCH PRN IV FLUSH 06/04/17 16:15 (NovoLOG SUPPLEMENTAL SCALE) 1 ACHS SQ 06/04/17 21:00 (D50w (Vial) Inj) 50 ml UNSCH PRN IV PUSH 06/04/17 16:15 Glucagon 1 mg 1 mg UNSCH PRN OTHER 06/04/17 16:15 (Heparin-D5W Inj) 250 ml @ 0 mls/hr TITRATE IV 06/04/17 19:00 06/07/17 13:36 (Apresoline Inj) 10 mg Q4HR PRN IV PUSH 06/04/17 23:00 06/09/17 04:05 (KlonoPIN) 1 mg Q8HR PRN PO 06/05/17 13:30 06/08/17 03:03 (Restoril) 30 mg HS PRN PO 06/05/17 13:30 06/06/17 20:45 (Apresoline) 50 mg Q8HR PO 06/06/17 14:00 06/09/17 21:17 (Procardia Xl) 90 mg DAILY PO 06/07/17 09:00 06/09/17 09:15 (Hydrodiuril) 25 mg DAILY PO 06/08/17 09:00 06/09/17 09:14 (Ultram) 50 mg Q8H PRN PO 06/07/17 14:45 (Tylenol) 650 mg Q4H PRN PO 06/07/17 14:45 Warfarin Sodium 5 mg 5 mg DAILY@1600 PO 06/08/17 16:00 06/09/17 16:09 (Coumadin Consult Pharmacy) 0 ml @ 0 mls/hr UNSCH OTHER 06/08/17 14:15 Allergies Allergies Coded Allergies Contrast Media (Verified Allergy, Severe, Rash, 06/04/17) Shellfish (Verified Allergy, Severe, Anaphylaxis, 06/04/17) Whole Milk (Verified Adverse Reaction, Mild, Appetite Changes(Inc/Dec), 06/04/17 ) Exam I&O / VS 06/08/17 06/08/17 06/09/17 15:00 23:00 07:00 Intake Total 1119 ml 1169 ml 343 ml Output Total 400 ml 450 ml 640 ml Balance 719 ml 719 ml -297 ml Intake Oral 450 ml 620 ml 240 ml IV Total 669 ml 549 ml 103 ml Output Urine Total 400 ml 450 ml 640 ml # Bowel Movements 1 0 1 Vital Signs Date Time Temp Pulse Resp B/P Pulse Ox O2 Delivery O2 Flow Rate FiO2 06/09/17 20:02 96 06/09/17 20:00 93 06/09/17 16:00 97.6 84 20 138/83 96 06/09/17 12:21 98.4 82 18 161/93 98 06/09/17 12:20 80 06/09/17 08:00 98.0 82 20 130/74 98 06/09/17 06:00 77 06/09/17 04:00 97.9 73 19 162/95 98 06/09/17 04:00 74 06/09/17 02:00 78 06/09/17 00:00 81 06/09/17 00:00 98.6 94 22 115/61 97 Exam Comments alert, speech normal, comprhension normal CN normal MOTOR 4+/5 LUE, 5/5 LLE Objective Micro and Labs Laboratory Tests Test 06/09/17 06/09/17 04:00 20:30 Prothrombin Time 14.3 Prothromb Time International 1.3 Ratio Activated Partial 46.4 Thromboplast Time Héctor Preciado PhD MD Jun 09, 2017 22:40
[2017-06-10] VITALS (9 sets, daily range): BP systolic 136–164; BP diastolic 8–92; PULSE 70–111; RESP 16–20; TEMP 97.6–98.4; O2SAT 97–100
[2017-06-10] MEDS: TEMAZEPAM 15 MG CAP PO PRN ×2 (00:36→23:42)
[2017-06-10 04:27] LABS: APTT (PATIENT) 61.5 SEC (24.3-30.1); INTERNATIONAL NORMALIZED RATIO 1.3 RATIO; PROTHROMBIN TIME - PATIENT 14.5 SEC (9.8-11.6)
[2017-06-10] MEDS: hydrALAZINE HCL 25 MG TAB PO SCH ×3 (06:17→20:10)
[2017-06-10] MEDS: INSULIN ASPART SUPPLEMENTAL SCALE SQ SCH ×4 (06:29→20:10)
--- NOTE | 2017-06-10 08:43 | HHI.PR ---
Subjective Remarks Pt feels ok, no concerns today, denies any CP/SOB/N/V Discussed w RN, no concerns today. Objective Vitals Vital Signs Date Time Temp Pulse Resp B/P Pulse Ox O2 Delivery O2 Flow Rate FiO2 06/10/17 06:00 70 06/10/17 04:00 97.6 75 16 136/87 99 06/10/17 04:00 75 06/10/17 02:00 81 06/10/17 00:00 81 06/10/17 00:00 97.9 81 20 136/82 97 06/09/17 22:00 75 06/09/17 20:02 96 06/09/17 20:00 98.9 94 26 159/93 96 06/09/17 20:00 93 06/09/17 16:00 97.6 84 20 138/83 96 06/09/17 12:21 98.4 82 18 161/93 98 06/09/17 12:20 80 I/O 06/09/17 06/09/17 06/09/17 06/10/17 06/10/17 06/10/17 07:00 15:00 23:00 07:00 15:00 23:00 Intake Total 343 ml 729 ml 338 ml Output Total 640 ml 2375 ml 350 ml Balance -297 ml -1646 ml -12 ml Intake Oral 240 ml 240 ml 240 ml IV Total 103 ml 489 ml 98 ml Output Urine Total 640 ml 2375 ml 350 ml # Bowel Movements 1 0 0 Result Diagram: 06/07/17 0402 06/08/17 0415 Imaging Last Impressions Brain MRI 06/05/17 0000 Signed Impressions: Service Date/Time: Monday, June 05, 2017 15:15 - CONCLUSION: MR findings suggest a small embolic event to the right MCA territory. Ozzy Swanson MD Head CTA 06/04/17 0000 Signed Impressions: Service Date/Time: Sunday, June 04, 2017 14:41 - CONCLUSION: 1. Nondiagnostic CTA examination due to significant patient motion. Plan: Patient will be transferred emergently for cerebral angiography and possible intervention. Amol Kevin MD Head CT 06/04/17 0000 Signed Impressions: Service Date/Time: Sunday, June 04, 2017 13:35 - CONCLUSION: Normal examination. Jey Magaña MD Chest X-Ray 06/04/17 0000 Signed Impressions: Service Date/Time: Sunday, June 04, 2017 13:54 - CONCLUSION: No acute disease. Dejon Durand MD Cerebral Arteriogram 06/04/17 0000 Signed Impressions: Service Date/Time: Sunday, June 04, 2017 16:14 - CONCLUSION: 1. Occlusion of the right ICA terminus secondary to combination of acute and chronic thrombus. 2. Mechanical thrombectomy was only partially successful in reestablishing flow with significantly diminished flow through the ICA terminus. 3. Marked angiographic improvement following 3 mm balloon angioplasty of the right ICA terminus and additional thrombectomy. Minimal residual platelike [id number] chronic adherent thrombus in the ICA terminus. Otherwise, TICI 3. 4. 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 Amol Kevin MD Objective Remarks GENERAL: Alert, oriented 3, NAD. SKIN: Warm and dry. HEAD: Normocephalic. EYES: No scleral icterus. No injection or drainage. EOMI NECK: Supple, trachea midline. CARDIOVASCULAR: Regular rate and rhythm without murmurs RESPIRATORY: Breath sounds equal bilaterally. No accessory muscle use. no wheezing or crackles GASTROINTESTINAL: Abdomen soft, non-tender, nondistended. MUSCULOSKELETAL: No cyanosis, or edema. left upper extremity w much improvement today: 4/5 muscle strength, able to move extremity without assistance of the right arm. able to squeeze my fingers better this morning. he does have some numbness in his forearm. Procedures 06/04/2017 Cerebral arteriogram - mechanical thrombectomy A/P Assessment and Plan Mr. Funk is a 42 y/o male with a history of HTN (not on any medication) presented to the ED with complaints of LUE weakness 40 mins prior to coming to the ED. - Right MCA stroke - Cerebral aneurysm - Neurologist, Dr. Preciado following. He has consulted cards for JENNIFER. I discussed the case w Dr. Gerber and saw the patient together. He will try to schedule pt for JENNIFER for later today. Make him NPO now - Patient had emergent cerebral angiogram which showed right ICA T-lesion with acute on chronic thrombus. Removed acute portion and small amount of chronic thrombus following 3mm plasty. Now non-occlusive chronic thrombus at prox M1 segment. Previous hospitalist discussed w Dr. Preciado and Dr. Rizvi (IR) who are both in agreement in anticoagulating despite aneurysm to ensure patency since patient is very high risk of reforming thrombosis. Recommendations were to anticoagulate w heparin/coumadin until INR therapeutic w goal of 2-3. Warfarin has been started w warfarin consult in place. INR today is 1.3 - IR recommends waiting 6 months before aneurysm coiled. - Continue neuro check. 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 I discussed the case w CM yesterday and she will talk to patient to see what options are available to him. - Hypertension - Continue Nifedipine to 90mg Qday and Hydralazine to 50mg Q8hrs. - continue HCTZ 25mg Qday. - BPs somewhat labile but better controlled, monitor closely and adjust BP meds as needed. - Acute on Chronic kidney disease - Most likely due to hypoperfusion. Patient is on IV fluids. Creatinine improved from 1.5 --> 1.25 --> 0.96 - D/C IV fluids. Avoid nephrotoxins. Full code. Heparin drip. Warfarin. Discharge Planning transfer to regular floor. JENNIFER for later today Monitor INR. Pt will need to have f/u post discharge as he must have his INRs followed as an outpatient and currently pt has no insurance and doesn't have a PCP. Cora Valentin MD Jun 10, 2017 08:43
[2017-06-10] MEDS: NIFEdipine 90 MG SUSTAINED RELEASE TAB PO SCH (09:20)
[2017-06-10] MEDS: HYDROCHLOROTHIAZIDE 25 MG TAB PO SCH (09:20)
[2017-06-10] MEDS ORDERED: SODIUM CHLORID 0.9% 500 ML INJ 500 ML IV SCH (09:30)
--- NOTE | 2017-06-10 10:18 | MB ---
cc: MARIANO LORENZ DATE OF CONSULTATION 06/10/2017 INDICATIONS Stroke HISTORY This is a 42-year-old gentleman who presented to the hospital with acute left arm and left leg weakness. He had previously been seen in the hospital with some left-sided weakness felt not to be at the t-PA candidate prior hospitalization earlier in the month. CT angiogram of the brain showed a 4 mm aneurysm in the right internal carotid artery and an MRA showed thrombus in the right MCA territory. He underwent a cerebral arteriogram which did show a superior right artery aneurysm with vessel occlusion, vascular malformation. He was seen by Dr. Clements of neurosurgery who recommended conservative management at this time in consideration of the 6-month coil embolization. He has been followed throughout the hospitalization by neurology and we were consulted for consideration of a transesophageal echocardiogram. PAST MEDICAL HISTORY 1. Hypertension 2. Colon resection 3. Hernia repair ALLERGIES CONTRAST MEDIA, lactulose, shellfish. SOCIAL HISTORY Denies any alcohol, tobacco or drug use. FAMILY HISTORY Denies any family history of early cardiac disease or sudden cardiac . REVIEW OF SYSTEMS A 12-point reviews was performed and is negative unless as mentioned in the history of present illness. PHYSICAL EXAMINATION Temperature 98, pulse 80, blood pressure 159/80 mmHg. GENERAL: Alert and oriented x3 in no acute distress. HEENT: Exam shows pupils reactive to light and accommodation. Extraocular movements are intact. NECK: No jugular venous distension. No thyromegaly. No lymphadenopathy. No carotid bruits. EXTREMITIES: He had 4/5 left upper extremity, 5/5 left lower extremity strength. NEUROLOGIC EXAMINATION: Cranial nerves intact. Motor and sensory otherwise grossly intact. LABORATORY DATA WBC 8.8, hemoglobin is 14.2, platelet count is 191. INR is 1.3. Sodium 142, potassium 3.5, BUN 13, creatinine 0.96. ASSESSMENT 1. Stroke 2. Right carotid aneurysm 3. Hypertension PLAN I had discussed the case with neurology and potentially interventional radiology. The source of the right CMC stroke is likely related to the aneurysm, although there was heavy thrombotic burden throughout. I am thinking that a neurologist will wonder if he had a large thrombotic embolism and the aneurysms is an incidental finding. There is no echocardiogram done here this hospitalization, but on June 02 there was an echocardiogram done which showed normal systolic function. No significant valvular abnormalities. The patient is going to be initiated on anticoagulation. Right now, we will keep him n.p.o. 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 Cerebral aneurysm will be addressed with coil embolization likely in six months. MD STACY Maravilal/SIMON /9:38 AM /10:04 AM
[2017-06-10] MEDS: HEPARIN-D5W INJ 250 ML IV SCH (12:33)
[2017-06-10] MEDS ORDERED: MISCELLANEOUS NURSING INFORMATION XX PRN (13:45)
--- NOTE | 2017-06-10 15:09 | ECHRPT ---
Indication: CONCLUSIONS Normal atrial septal thickness. Left to right atrial level shunt is observed with agitated saline contrast administration. A small patent foramen ovale is present with a [id number] shunt demonstrated by color flow Dopple r interrogation. Normal left ventricular size. Mild concentric left ventricular hypertrophy. The left ventricular systolic function is hyperdynamic with an estimated ejection fraction in the ra nge of 65- 70%. BP: / HR: Rhythm: Technical Quality: Medications Complications Proc. Components The JENNIFER probe was passed into the posterior pharynx , mid-esophagus, distal esoph kelly, and gastric fundus.. FINDINGS LEFT VENTRICLE Normal left ventricular size. Mild concentric left ventricular hypertrophy. The left ventricular systolic function is hyperdynamic with an estimated ejection fraction in the ra nge of 65- 70%. RIGHT VENTRICLE Normal right ventricular size and systolic function. LEFT ATRIUM The left atrial size is normal. RIGHT ATRIUM The right atrial size is normal. ATRIAL APPENDAGES Normal left atrial appendage size with no evidence of thrombus formation. ATRIAL SEPTUM Normal atrial septal thickness. Left to right atrial level shunt is observed with agitated saline contrast administration. A small patent foramen ovale is present with a [id number] shunt demonstrated by color flow Dopple r interrogation. AORTA The aortic root and proximal ascending aorta are normal in size on limited imaging. MITRAL VALVE Structurally normal mitral valve. No mitral valve stenosis or regurgitation. AORTIC VALVE Trileaflet aortic valve. No aortic valve stenosis or regurgitation. VESSELS The inferior vena cava is normal in size. PULMONARY VALVE The pulmonary valve is not well visualized. PERICADIUM No pericardial effusion. Jey Gerber MD, FACC (Electronically Signed) Final Date:10 June 2017 15:07
[2017-06-10] MEDS ORDERED: WARFARIN SOD 2.5 MG TAB PO ONE (16:00)
[2017-06-10] MEDS: WARFARIN SOD 5 MG TAB PO SCH (16:19)
--- NOTE | 2017-06-10 17:08 | HHI.PR ---
Review/Management Diagnosis Right MCA stroke--improved after endovascular therapy right carotid aneurysm hypercoag labs negative small PFO on JENNIFER Plan continue coumadin to acheive INR 2-3 consider aneurysm coiling when more stable in 6 months when INR >2 stop heparin. Ok from neurology standpoint to discharge when INR 2- 3 and f/u with me in 3 weeks Diagnosis/Plan: Subjective Subjective Comments No acute events reported Had JENNIFER today---small PFO Active Medications Current Medications Medications (Trade) Dose Ordered Sig/Lisy Route Start Time Stop Time Status Last Admin (NS Flush) 2 ml BID IV FLUSH 06/04/17 21:00 06/09/17 21:18 (NS Flush) 2 ml UNSCH PRN IV FLUSH 06/04/17 16:15 (NovoLOG SUPPLEMENTAL SCALE) 1 ACHS SQ 06/04/17 21:00 (D50w (Vial) Inj) 50 ml UNSCH PRN IV PUSH 06/04/17 16:15 Glucagon 1 mg 1 mg UNSCH PRN OTHER 06/04/17 16:15 (Heparin-D5W Inj) 250 ml @ 0 mls/hr TITRATE IV 06/04/17 19:00 06/10/17 12:33 (Apresoline Inj) 10 mg Q4HR PRN IV PUSH 06/04/17 23:00 06/09/17 04:05 (KlonoPIN) 1 mg Q8HR PRN PO 06/05/17 13:30 06/08/17 03:03 (Restoril) 30 mg HS PRN PO 06/05/17 13:30 06/10/17 00:36 (Apresoline) 50 mg Q8HR PO 06/06/17 14:00 06/10/17 16:19 (Procardia Xl) 90 mg DAILY PO 06/07/17 09:00 06/10/17 09:20 (Hydrodiuril) 25 mg DAILY PO 06/08/17 09:00 06/10/17 09:20 (Ultram) 50 mg Q8H PRN PO 06/07/17 14:45 (Tylenol) 650 mg Q4H PRN PO 06/07/17 14:45 Warfarin Sodium 5 mg 5 mg DAILY@1600 PO 06/08/17 16:00 06/10/17 16:19 Pharmacy Profile Note 0 ml @ 0 mls/hr UNSCH OTHER 06/08/17 14:15 (NS 500 ml Inj) 500 ml @ 0 mls/hr CONTINUOUS IV 06/10/17 09:30 06/11/17 09:29 Miscellaneous Information 1 UNSCH PRN XX 06/10/17 13:45 06/13/17 13:44 Allergies Allergies Coded Allergies Contrast Media (Verified Allergy, Severe, Rash, 06/04/17) Shellfish (Verified Allergy, Severe, Anaphylaxis, 06/04/17) Whole Milk (Verified Adverse Reaction, Mild, Appetite Changes(Inc/Dec), 06/04/17 ) Exam I&O / VS 06/09/17 06/09/17 06/10/17 14:59 22:59 06:59 Intake Total 729 ml 338 ml Output Total 2375 ml 350 ml Balance -1646 ml -12 ml Intake Oral 240 ml 240 ml IV Total 489 ml 98 ml Output Urine Total 2375 ml 350 ml # Bowel Movements 0 0 Vital Signs Date Time Temp Pulse Resp B/P Pulse Ox O2 Delivery O2 Flow Rate FiO2 06/10/17 16:02 98.4 111 18 154/92 100 06/10/17 12:38 97.8 94 20 158/83 100 06/10/17 08:00 98.0 80 17 159/82 100 06/10/17 06:00 70 06/10/17 04:00 97.6 75 16 136/87 99 06/10/17 04:00 75 06/10/17 02:00 81 06/10/17 00:00 81 06/10/17 00:00 97.9 81 20 136/82 97 06/09/17 22:00 75 06/09/17 20:02 96 06/09/17 20:00 98.9 94 26 159/93 96 06/09/17 20:00 93 Exam Comments alert, speech normal, comprhension normal CN normal MOTOR 4+/5 LUE, 5/5 LLE Objective Micro and Labs Laboratory Tests Test 06/09/17 06/10/17 20:30 04:00 Activated Partial 46.4 61.5 Thromboplast Time Prothrombin Time 14.5 Prothromb Time International 1.3 Ratio Héctor Preciado PhD Jun 10, 2017 17:08
[2017-06-10] MEDS: SODIUM CHLORIDE 0.9% FLUSH 5 ML FLUSH IV FLUSH SCH (20:11)
[2017-06-11] VITALS (8 sets, daily range): BP systolic 138–161; BP diastolic 64–90; PULSE 83–115; RESP 17–20; TEMP 96.5–97.8; O2SAT 95–100
[2017-06-11] MEDS: hydrALAZINE HCL 25 MG TAB PO SCH ×3 (05:34→21:13)
[2017-06-11] MEDS: INSULIN ASPART SUPPLEMENTAL SCALE SQ SCH ×4 (05:34→21:00)
[2017-06-11] MEDS: HEPARIN-D5W INJ 250 ML IV SCH ×2 (05:37→23:42)
[2017-06-11 08:53] LABS: INTERNATIONAL NORMALIZED RATIO 2.1 RATIO; PROTHROMBIN TIME - PATIENT 24.1 SEC (9.8-11.6)
[2017-06-11 08:58] LABS: APTT (PATIENT) 54.6 SEC (24.3-30.1)
[2017-06-11] MEDS: SODIUM CHLORIDE 0.9% FLUSH 5 ML FLUSH IV FLUSH SCH ×2 (09:00→21:00)
[2017-06-11] MEDS: NIFEdipine 90 MG SUSTAINED RELEASE TAB PO SCH (09:02)
[2017-06-11] MEDS: HYDROCHLOROTHIAZIDE 25 MG TAB PO SCH (09:02)
--- NOTE | 2017-06-11 10:44 | PD.CARD.PN ---
Subjective Subjective Remarks No complaints Objective Medications Administered Medications Medications (Trade) Dose Ordered Sig/Lisy Route PRN Reason Start Time Stop Time Status Last Admin Dose Admin IV Flush 2 ml 2 ml BID IV FLUSH 06/04/17 21:00 06/10/17 20:11 Heparin Sodium/ Dextrose (Heparin-D5W Inj) 250 ml @ 0 mls/hr TITRATE IV 06/04/17 19:00 06/11/17 05:37 Hydralazine HCl (Apresoline Inj) 10 mg Q4HR PRN IV PUSH SBP> OR = 180, DBP> OR = 100 06/04/17 23:00 06/09/17 04:05 Clonazepam (KlonoPIN) 1 mg Q8HR PRN PO Anxiety 06/05/17 13:30 06/08/17 03:03 Temazepam (Restoril) 30 mg HS PRN PO INSOMNIA 06/05/17 13:30 06/10/17 23:42 Hydralazine HCl (Apresoline) 50 mg Q8HR PO 06/06/17 14:00 06/11/17 05:34 Nifedipine (Procardia Xl) 90 mg DAILY PO 06/07/17 09:00 06/11/17 09:02 Hydrochlorothiazide (Hydrodiuril) 25 mg DAILY PO 06/08/17 09:00 06/11/17 09:02 Tramadol HCl (Ultram) 50 mg Q8H PRN PO PAIN SCALE 5 TO 10 06/07/17 14:45 06/10/17 20:10 Warfarin Sodium (Coumadin) 5 mg DAILY@1600 PO 06/08/17 16:00 06/10/17 16:19 Vital Signs / I&O Vital Signs Date Time Temp Pulse Resp B/P Pulse Ox O2 Delivery O2 Flow Rate FiO2 06/11/17 08:10 96.9 85 18 139/87 95 06/11/17 04:43 97.8 94 17 151/64 100 06/11/17 01:22 96.5 93 20 147/84 99 06/10/17 19:00 98.0 93 18 164/84 97 06/10/17 17:17 79 06/10/17 16:02 98.4 111 18 154/92 100 06/10/17 12:38 97.8 94 20 158/83 100 I/O 7/14/17 06/10/17 06/10/17 06/11/17 06/11/17 06/11/17 06:59 14:59 22:59 06:59 14:59 22:59 Intake Total 338 ml Output Total 350 ml 600 ml 700 ml Balance -12 ml -600 ml -700 ml Intake Oral 240 ml IV Total 98 ml Output Urine Total 350 ml 600 ml 700 ml # Bowel Movements 0 Physical Exam GENERAL: This is a well-nourished, well-developed patient, in no apparent distress. CARDIOVASCULAR: Regular rate and rhythm without murmurs, gallops, or rubs. RESPIRATORY: Clear to auscultation. Breath sounds equal bilaterally. No wheezes , rales, or rhonchi. GASTROINTESTINAL: Abdomen soft, non-tender, nondistended. Normal active bowel sounds MUSCULOSKELETAL: Extremities without clubbing, cyanosis, or edema. NEURO: Alert & Oriented x4 to person, place, time, situation. Moves all ext x4 Laboratory Laboratory Tests Test 06/11/17 08:08 Prothrombin Time 24.1 SEC Prothromb Time International 2.1 RATIO Ratio Activated Partial 54.6 SEC Thromboplast Time Imaging Last Impressions Brain MRI 06/05/17 0000 Signed Impressions: Service Date/Time: Monday, June 05, 2017 15:15 - CONCLUSION: MR findings suggest a small embolic event to the right MCA territory. Ozzy Swanson MD Head CTA 06/04/17 0000 Signed Impressions: Service Date/Time: Sunday, June 04, 2017 14:41 - CONCLUSION: 1. Nondiagnostic CTA examination due to significant patient motion. Plan: Patient will be transferred emergently for cerebral angiography and possible intervention. Amol Kevin MD Head CT 06/04/17 0000 Signed Impressions: Service Date/Time: Sunday, June 04, 2017 13:35 - CONCLUSION: Normal examination. Jey Magaña MD Chest X-Ray 06/04/17 0000 Signed Impressions: Service Date/Time: Sunday, June 04, 2017 13:54 - CONCLUSION: No acute disease. Dejon Durand MD Cerebral Arteriogram 06/04/17 0000 Signed Impressions: Service Date/Time: Sunday, June 04, 2017 16:14 - CONCLUSION: 1. Occlusion of the right ICA terminus secondary to combination of acute and chronic thrombus. 2. Mechanical thrombectomy was only partially successful in reestablishing flow with significantly diminished flow through the ICA terminus. 3. Marked angiographic improvement following 3 mm balloon angioplasty of the right ICA terminus and additional thrombectomy. Minimal residual platelike [id number] chronic adherent thrombus in the ICA terminus. Otherwise, TICI 3. 4. 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 Amol Kevin MD Assessment and Plan Problem List: (1) Stroke Assessment and Plan: on warfarin, small PFO seen by JENNIFER; remainder of mgt per neuro team. Assessment and Plan will sign off at this time please call with questions. Problem Qualifiers (1) Stroke: Qualified Code: I63.9 - Cerebrovascular accident (CVA), unspecified mechanism Johnson Mendoza MD Jun 11, 2017 10:44
--- NOTE | 2017-06-11 15:17 | HHI.PR ---
Subjective Remarks Follow-up right MCA stroke, anticoagulation. Patient states that he is feeling a little better today. Left upper extremity weakness is improving. No chest pain or dyspnea. Objective Vitals Vital Signs Date Time Temp Pulse Resp B/P Pulse Ox O2 Delivery O2 Flow Rate FiO2 06/11/17 14:28 83 06/11/17 12:12 97.0 84 18 138/82 99 06/11/17 08:10 96.9 85 18 139/87 95 06/11/17 04:43 97.8 94 17 151/64 100 06/11/17 01:22 96.5 93 20 147/84 99 06/10/17 19:00 98.0 93 18 164/84 97 06/10/17 17:17 79 06/10/17 16:02 98.4 111 18 154/92 100 I/O 06/10/17 06/10/17 06/10/17 06/11/17 06/11/17 06/11/17 07:00 15:00 23:00 07:00 15:00 23:00 Intake Total 338 ml Output Total 350 ml 600 ml 700 ml Balance -12 ml -600 ml -700 ml Intake Oral 240 ml IV Total 98 ml Output Urine Total 350 ml 600 ml 700 ml # Bowel Movements 0 1 Result Diagram: 06/07/17 0402 06/08/17 0415 Imaging Last Impressions Brain MRI 06/05/17 0000 Signed Impressions: Service Date/Time: Monday, June 05, 2017 15:15 - CONCLUSION: MR findings suggest a small embolic event to the right MCA territory. Ozzy Swanson MD Head CTA 06/04/17 0000 Signed Impressions: Service Date/Time: Sunday, June 04, 2017 14:41 - CONCLUSION: 1. Nondiagnostic CTA examination due to significant patient motion. Plan: Patient will be transferred emergently for cerebral angiography and possible intervention. Amol Kevin MD Head CT 06/04/17 0000 Signed Impressions: Service Date/Time: Sunday, June 04, 2017 13:35 - CONCLUSION: Normal examination. Jey Magaña MD Chest X-Ray 06/04/17 0000 Signed Impressions: Service Date/Time: Sunday, June 04, 2017 13:54 - CONCLUSION: No acute disease. Dejon Durand MD Cerebral Arteriogram 06/04/17 0000 Signed Impressions: Service Date/Time: Sunday, June 04, 2017 16:14 - CONCLUSION: 1. Occlusion of the right ICA terminus secondary to combination of acute and chronic thrombus. 2. Mechanical thrombectomy was only partially successful in reestablishing flow with significantly diminished flow through the ICA terminus. 3. Marked angiographic improvement following 3 mm balloon angioplasty of the right ICA terminus and additional thrombectomy. Minimal residual platelike [id number]-zunhshuk chronic adherent thrombus in the ICA terminus. Otherwise, TICI 3. 4. 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 Amol Kevin MD Objective Remarks General: No acute distress. Heart: Regular rate and rhythm. No murmur. Lungs: Clear to auscultation bilaterally. No wheezes, rales, or rhonchi. Breathing is nonlabored. Abdomen: Soft, nontender, nondistended. Extremities: No lower extremity edema. Left upper extremity magician/illusionist strength 4/5. Psych: Alert and oriented. Procedures 06/04/2017 Cerebral arteriogram - mechanical thrombectomy Urinary Catheter: No Vascular Central Line Catheter: No A/P Problem List: (1) Acute right MCA stroke ICD Code: I63.511 Status: Acute (2) Cerebral aneurysm ICD Code: I67.1 Status: Acute (3) Essential hypertension ICD Code: 401.9 Status: Chronic (4) Acute kidney injury ICD Code: N17.9 Status: Acute Assessment and Plan 1. Acute right MCA stroke: Appreciate neurology recommendations. JENNIFER shows PFO. Patient will need anticoagulation. Patient also has cerebral aneurysm. Interventional radiologist and neurologist are in agreement that patient is very high risk of reforming thrombosis, and thus will need anticoagulation. INR is 2.1 today. Continue heparin drip. 2. Cerebral aneurysm: Interventional radiology recommends waiting 6 months prior to coiling the aneurysm. 3. Hypertension: Blood pressure improved. Continue nifedipine, hydralazine, HCTZ. 4. Acute on chronic kidney disease: Improved. 5. DVT prophylaxis: Heparin drip, warfarin. Discharge Planning Plan for discharge home tomorrow pending INR. Silver Villarreal MD Jun 11, 2017 15:17
[2017-06-11] MEDS: TEMAZEPAM 15 MG CAP PO PRN (21:14)
[2017-06-12] VITALS (8 sets, daily range): BP systolic 129–149; BP diastolic 84–93; PULSE 90–108; RESP 18–20; TEMP 96.1–98.1; O2SAT 97–100
[2017-06-12] MEDS: hydrALAZINE HCL 25 MG TAB PO SCH ×3 (05:47→21:09)
[2017-06-12] MEDS: SODIUM CHLORIDE 0.9% FLUSH 5 ML FLUSH IV FLUSH SCH ×2 (08:35→21:00)
[2017-06-12] MEDS: NIFEdipine 90 MG SUSTAINED RELEASE TAB PO SCH (08:36)
[2017-06-12] MEDS: HYDROCHLOROTHIAZIDE 25 MG TAB PO SCH (08:37)
[2017-06-12 08:41] LABS: APTT (PATIENT) 67.5 SEC (24.3-30.1)
[2017-06-12 08:42] LABS: INTERNATIONAL NORMALIZED RATIO 1.9 RATIO
--- NOTE | 2017-06-12 13:18 | HHI.PR ---
Subjective Remarks Follow-up right MCA stroke, anticoagulation. Patient has no complaints at this time. LUE weakness continues to improve. Objective Vitals Vital Signs Date Time Temp Pulse Resp B/P Pulse Ox O2 Delivery O2 Flow Rate FiO2 06/12/17 12:36 90 06/12/17 12:01 97.1 90 18 141/86 97 06/12/17 08:08 96.1 91 18 149/87 97 06/12/17 04:00 96.9 91 20 136/93 98 06/12/17 00:00 97.4 100 20 129/84 98 06/11/17 22:30 100 06/11/17 20:00 97.6 115 20 143/90 98 06/11/17 16:37 97.0 115 20 161/78 98 06/11/17 14:28 83 I/O 06/11/17 06/11/17 06/11/17 06/12/17 06/12/17 06/12/17 06:59 14:59 22:59 06:59 14:59 22:59 Intake Total 144 ml Output Total 700 ml 400 ml 250 ml Balance -700 ml -400 ml -250 ml 144 ml IV Total 144 ml Output Urine Total 700 ml 400 ml 250 ml # Bowel Movements 1 0 0 Result Diagram: 06/08/17 0415 Imaging Last Impressions Brain MRI 06/05/17 0000 Signed Impressions: Service Date/Time: Monday, June 05, 2017 15:15 - CONCLUSION: MR findings suggest a small embolic event to the right MCA territory. Ozzy Swanson MD Head CTA 06/04/17 0000 Signed Impressions: Service Date/Time: Sunday, June 04, 2017 14:41 - CONCLUSION: 1. Nondiagnostic CTA examination due to significant patient motion. Plan: Patient will be transferred emergently for cerebral angiography and possible intervention. Amol Kevin MD Head CT 06/04/17 0000 Signed Impressions: Service Date/Time: Sunday, June 04, 2017 13:35 - CONCLUSION: Normal examination. Jey Magaña MD Chest X-Ray 06/04/17 0000 Signed Impressions: Service Date/Time: Sunday, June 04, 2017 13:54 - CONCLUSION: No acute disease. Dejon Durand MD Cerebral Arteriogram 06/04/17 0000 Signed Impressions: Service Date/Time: Sunday, June 04, 2017 16:14 - CONCLUSION: 1. Occlusion of the right ICA terminus secondary to combination of acute and chronic thrombus. 2. Mechanical thrombectomy was only partially successful in reestablishing flow with significantly diminished flow through the ICA terminus. 3. Marked angiographic improvement following 3 mm balloon angioplasty of the right ICA terminus and additional thrombectomy. Minimal residual platelike [id number] chronic adherent thrombus in the ICA terminus. Otherwise, TICI 3. 4. 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 Amol Kevin MD Objective Remarks General: No acute distress. Heart: Regular rate and rhythm. No murmur. Lungs: Clear to auscultation bilaterally. No wheezes, rales, or rhonchi. Breathing is nonlabored. Abdomen: Soft, nontender, nondistended. Extremities: No lower extremity edema. 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 Psych: Alert and oriented. Procedures 06/04/2017 Cerebral arteriogram - mechanical thrombectomy Urinary Catheter: No Vascular Central Line Catheter: No A/P Problem List: (1) Acute right MCA stroke ICD Code: I63.511 Status: Acute (2) Cerebral aneurysm ICD Code: I67.1 Status: Acute (3) Essential hypertension ICD Code: 401.9 Status: Chronic (4) Acute kidney injury ICD Code: N17.9 Status: Acute Assessment and Plan 1. Acute right MCA stroke: Appreciate neurology recommendations. JENNIFER shows PFO. Patient will need anticoagulation. Patient also has cerebral aneurysm. Interventional radiologist and neurologist are in agreement that patient is very high risk of reforming thrombosis, and thus will need anticoagulation. INR is down to 1.9 today. Continue heparin drip. 2. Cerebral aneurysm: Interventional radiology recommends waiting 6 months prior to coiling the aneurysm. 3. Hypertension: Blood pressure improved. Continue nifedipine, hydralazine, HCTZ. 4. Acute on chronic kidney disease: Improved. 5. DVT prophylaxis: Heparin drip, warfarin. Discharge Planning Plan for discharge home tomorrow pending INR. Silver Villarreal MD Jun 12, 2017 13:18
[2017-06-12] MEDS: WARFARIN SOD 5 MG TAB PO SCH (16:44)
[2017-06-12] MEDS: TEMAZEPAM 15 MG CAP PO PRN (21:09)
[2017-06-12] MEDS: HEPARIN-D5W INJ 250 ML IV SCH (21:13)
[2017-06-12 22:03] LABS: APTT (PATIENT) 44.2 SEC (24.3-30.1)
[2017-06-13] VITALS (9 sets, daily range): BP systolic 124–156; BP diastolic 64–94; PULSE 80–129; RESP 16–20; TEMP 96.5–98.7; O2SAT 97–99
[2017-06-13 03:37] LABS: APTT (PATIENT) 66.5 SEC (24.3-30.1); INTERNATIONAL NORMALIZED RATIO 1.9 RATIO; PROTHROMBIN TIME - PATIENT 21.6 SEC (9.8-11.6)
[2017-06-13] MEDS: hydrALAZINE HCL 25 MG TAB PO SCH ×3 (05:46→21:43)
[2017-06-13 06:32] LABS: AUTOMATED NEUTROPHIL # 3.1 TH/MM3 (1.8-7.7); BASOPHIL # 0.1 TH/MM3 (0-0.2); BASOPHIL % 0.8 % (0.0-2.0); EOSINOPHIL # 0.1 TH/MM3 (0-0.4); HEMATOCRIT 49.6 % (39.0-51.0); HEMO FLAGS DIFF FINAL; LYMPH % 47.9 % (9.0-44.0); LYMPHOCYTE # 4.1 TH/MM3 (1.0-4.8); MEAN CELL VOLUME 76.4 FL (80.0-100.0); MEAN CORPUSCULAR HEMOGLOBIN 25.4 PG (27.0-34.0); MEAN CORPUSCULAR HGB CONC 33.3 % (32.0-36.0); MONO % 13.9 % (0.0-8.0); NEUT % 36.4 % (16.0-70.0); PLATELET COUNT 247 TH/MM3 (150-450); RED BLOOD COUNT 6.49 MIL/MM3 (4.50-5.90); RED CELL DISTRIBUTION WIDTH 13.9 % (11.6-17.2); WHITE BLOOD COUNT 8.6 TH/MM3 (4.0-11.0)
[2017-06-13 06:43] LABS: BICARBONATE 25.5 MEQ/L (21.0-32.0); MAGNESIUM 2.4 MG/DL (1.5-2.5); POTASSIUM 3.9 MEQ/L (3.5-5.1)
[2017-06-13] MEDS: NIFEdipine 90 MG SUSTAINED RELEASE TAB PO SCH (08:20)
[2017-06-13] MEDS: SODIUM CHLORIDE 0.9% FLUSH 5 ML FLUSH IV FLUSH SCH ×2 (08:20→21:00)
[2017-06-13] MEDS: HYDROCHLOROTHIAZIDE 25 MG TAB PO SCH (08:20)
[2017-06-13 13:22] LABS: APTT (PATIENT) 53.2 SEC (24.3-30.1)
--- NOTE | 2017-06-13 13:46 | HHI.PR ---
Subjective Remarks Follow up CVA, anticoagulation. Patient states that his left hand weakness improves a little bit each day. He denies chest pain or dyspnea. He wants to go home. Objective Vitals Vital Signs Date Time Temp Pulse Resp B/P Pulse Ox O2 Delivery O2 Flow Rate FiO2 06/13/17 12:11 97.7 98 16 138/88 98 06/13/17 08:05 93 06/13/17 08:00 96.5 92 16 156/91 98 06/13/17 05:40 98.3 80 19 130/64 99 06/13/17 05:23 129 06/13/17 05:20 90 153/86 99 06/13/17 00:30 97.8 88 17 136/69 99 06/12/17 21:30 98.1 98 18 143/85 100 06/12/17 19:29 98 06/12/17 16:10 97.9 108 19 133/88 98 I/O 06/12/17 06/12/17 06/12/17 06/13/17 06/13/17 06/13/17 07:00 15:00 23:00 07:00 15:00 23:00 Intake Total 384 ml 950 ml 780 ml Output Total 250 ml 300 ml 200 ml Balance -250 ml 84 ml 950 ml 580 ml Intake Oral 240 ml 950 ml 650 ml IV Total 144 ml 130 ml Output Urine Total 250 ml 300 ml 200 ml # Voids 3 # Bowel Movements 0 0 1 Result Diagram: 06/13/17 0623 06/13/17 0623 Imaging Last Impressions Brain MRI 06/05/17 0000 Signed Impressions: Service Date/Time: Monday, June 05, 2017 15:15 - CONCLUSION: MR findings suggest a small embolic event to the right MCA territory. Ozzy Swanson MD Head CTA 06/04/17 0000 Signed Impressions: Service Date/Time: Sunday, June 04, 2017 14:41 - CONCLUSION: 1. Nondiagnostic CTA examination due to significant patient motion. Plan: Patient will be transferred emergently for cerebral angiography and possible intervention. Amol Kevin MD Head CT 06/04/17 0000 Signed Impressions: Service Date/Time: Sunday, June 04, 2017 13:35 - CONCLUSION: Normal examination. Jey Magaña MD Chest X-Ray 06/04/17 0000 Signed Impressions: Service Date/Time: Sunday, June 04, 2017 13:54 - CONCLUSION: No acute disease. Dejon Durand MD Cerebral Arteriogram 06/04/17 0000 Signed Impressions: Service Date/Time: Sunday, June 04, 2017 16:14 - CONCLUSION: 1. Occlusion of the right ICA terminus secondary to combination of acute and chronic thrombus. 2. Mechanical thrombectomy was only partially successful in reestablishing flow with significantly diminished flow through the ICA terminus. 3. Marked angiographic improvement following 3 mm balloon angioplasty of the right ICA terminus and additional thrombectomy. Minimal residual platelike [id number] chronic adherent thrombus in the ICA terminus. Otherwise, TICI 3. 4. 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 Amol Kevin MD Objective Remarks General: No acute distress. Heart: Regular rate and rhythm. No murmur. Lungs: Clear to auscultation bilaterally. No wheezes, rales, or rhonchi. Breathing is nonlabored. Abdomen: Soft, nontender, nondistended. Extremities: No lower extremity edema. 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 Psych: Alert and oriented. Procedures 06/04/2017 Cerebral arteriogram - mechanical thrombectomy Urinary Catheter: No Vascular Central Line Catheter: No A/P Problem List: (1) Acute right MCA stroke ICD Code: I63.511 Status: Acute (2) Cerebral aneurysm ICD Code: I67.1 Status: Acute (3) Essential hypertension ICD Code: 401.9 Status: Chronic (4) Acute kidney injury ICD Code: N17.9 Status: Acute Assessment and Plan 1. Acute right MCA stroke: Appreciate neurology recommendations. JENNIFER shows PFO. Patient will need anticoagulation. Patient also has cerebral aneurysm. Interventional radiologist and neurologist are in agreement that patient is very high risk of reforming thrombosis, and thus will need anticoagulation. INR remains 1.9 today. Continue heparin drip. 2. Cerebral aneurysm: Interventional radiology recommends waiting 6 months prior to coiling the aneurysm. 3. Hypertension: Blood pressure improved. Continue nifedipine, hydralazine, HCTZ. 4. Acute on chronic kidney disease: Improved. 5. DVT prophylaxis: Heparin drip, warfarin. Discharge Planning I spoke with Dr. Preciado, neurology. He requests that the patient be continued on heparin drip until the INR is actually above 2. Plan for discharge home tomorrow pending INR. Silver Villarreal MD Jun 13, 2017 13:46
[2017-06-13] MEDS ORDERED: SODIUM CHLORID 0.9% 500 ML INJ 500 ML IV SCH (14:00)
[2017-06-13] MEDS: WARFARIN SOD 5 MG TAB PO SCH (15:36)
[2017-06-13 21:15] LABS: APTT (PATIENT) 47.5 SEC (24.3-30.1)
[2017-06-13] MEDS: TEMAZEPAM 15 MG CAP PO PRN (21:35)
[2017-06-13] MEDS: HEPARIN-D5W INJ 250 ML IV SCH (21:55)
[2017-06-14 00:43] VITALS: BP 126/99; PULSE 71; RESP 20; TEMP 97.4; O2SAT 96
[2017-06-14 05:43] VITALS: BP 139/83; PULSE 86; RESP 20; TEMP 96.8; O2SAT 99
[2017-06-14] MEDS: hydrALAZINE HCL 25 MG TAB PO SCH (05:58)
[2017-06-14 08:05] VITALS: BP 154/92; PULSE 91; RESP 16; TEMP 97.7; O2SAT 100
[2017-06-14 08:51] LABS: APTT (PATIENT) 56.5 SEC (24.3-30.1); INTERNATIONAL NORMALIZED RATIO 2.6 RATIO; PROTHROMBIN TIME - PATIENT 30.5 SEC (9.8-11.6)
[2017-06-14] MEDS: HYDROCHLOROTHIAZIDE 25 MG TAB PO SCH (08:53)
[2017-06-14] MEDS: NIFEdipine 90 MG SUSTAINED RELEASE TAB PO SCH (08:53)
[2017-06-14] MEDS: SODIUM CHLORIDE 0.9% FLUSH 5 ML FLUSH IV FLUSH SCH (08:54)
[2017-06-14 09:00] VITALS: PULSE 96
[2017-06-14 09:16] LABS: BICARBONATE 25.4 MEQ/L (21.0-32.0)
[2017-06-14] MEDS ORDERED: NIFE90TA2 PO (11:42)
[2017-06-14] MEDS ORDERED: WARF-20 PO (11:42)
[2017-06-14] MEDS ORDERED: HYDR-3800 PO (11:42)
--- NOTE | 2017-06-14 11:43 | HHI.DCPOC ---
Discharge Care Plan Diagnosis: (1) Essential hypertension (2) Acute kidney injury (3) Acute right MCA stroke (4) Cerebral aneurysm Goals to Promote Your Health * To prevent worsening of your condition and complications * To maintain your health at the optimal level Directions to Meet Your Goals Take your medications as prescribed Follow your dietary instruction Follow activity as directed Keep your appointments as scheduled Take your immunizations and boosters as scheduled If your symptoms worsen call your PCP, if no PCP go to Urgent Care Center or Emergency Room Smoking is Dangerous to Your Health. Avoid second hand smoke Call the 24-hour hour crisis hotline for domestic abuse at Silver Villarreal MD Jun 14, 2017 11:42
--- NOTE | 2017-06-14 11:48 | HHI.DS ---
Discharge Summary Admission Date Jun 04, 2017 at 16:12 Discharge Date: Jun 14, 2017 Admitting Diagnosis stroke (1) Acute right MCA stroke ICD Code: I63.511 (2) Cerebral aneurysm ICD Code: I67.1 (3) Essential hypertension ICD Code: 401.9 (4) Acute kidney injury ICD Code: N17.9 Procedures 06/04/2017 Cerebral arteriogram - mechanical thrombectomy Brief History - From Admission This is a 42-year-old male past medical history of hypertension and tobacco dependence who presented with acute onset of left-sided weakness involving the left arm and left leg with a neglect phenomenon as well. Patient seen in the PACU after procedure done by IR. History taken from EMR. Patient had a recent hospitalization a few days ago with similar symptoms in which workup showed subtle signal changes within the cortex of the right frontal, temporal and parietal lobes likely from ischemia which appear to be chronic in nature but no acute stroke was identified on the diffusion images. There was a decreased flow in the proximal right MCA on the MR angiogram with concern for thrombus in the right MCA area and also suspected thrombus in the distal right internal carotid artery extending into the proximal right and middle and anterior cerebral arteries. He then had a CT angiogram of the brain which showed a 4 mm aneurysm at the supraclinoid portion of the right internal carotid artery. 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 There was no evidence for large vessel occlusion, vascular malformation or distal aneurysms. Patient had an cerebral angiogram done by IR findings include right ICA T- lesion with acute on chronic thrombus. Removed acute portion and small amount of chronic thrombus following 3mm plasty. Now non-occlusive chronic thrombus at prox M1 segment. Per recommend anticoagulation with therapeutic heparin to assure patency. Dealt with Dr. Preciado over the phone and he is in agreement. CBC/BMP: 06/13/17 0623 06/14/17 0806 Significant Findings Laboratory Tests Test 06/12/17 06/12/17 06/13/17 06/13/17 07:40 20:49 03:04 06:23 Prothrombin Time 22.0 SEC 21.6 SEC (9.8-11.6) (9.8-11.6) Activated Partial 67.5 SEC 44.2 SEC 66.5 SEC Thromboplast Time (24.3-30.1) (24.3-30.1) (24.3-30.1) Red Blood Count 6.49 MIL/MM3 (4.50-5.90) Mean Corpuscular Volume 76.4 FL (80.0-100.0) Mean Corpuscular Hemoglobin 25.4 PG (27.0-34.0) Lymphocytes (%) (Auto) 47.9 % (9.0-44.0) Monocytes (%) (Auto) 13.9 % (0.0-8.0) Monocytes # (Auto) 1.2 TH/MM3 (0-0.9) Blood Urea Nitrogen 31 MG/DL (7-18) Creatinine 1.32 MG/DL (0.60-1.30) Estimat Glomerular Filtration 72 ML/MIN (>89) Rate Test 06/13/17 06/13/17 06/14/17 12:41 19:48 08:06 Activated Partial 53.2 SEC 47.5 SEC 56.5 SEC Thromboplast Time (24.3-30.1) (24.3-30.1) (24.3-30.1) Prothrombin Time 30.5 SEC (9.8-11.6) Sodium Level 135 MEQ/L (136-145) Blood Urea Nitrogen 27 MG/DL (7-18) Creatinine 1.33 MG/DL (0.60-1.30) Estimat Glomerular Filtration 72 ML/MIN (>89) Rate Imaging Last Impressions Brain MRI 06/05/17 0000 Signed Impressions: Service Date/Time: Monday, June 05, 2017 15:15 - CONCLUSION: MR findings suggest a small embolic event to the right MCA territory. Ozzy Swasnon MD Head CTA 06/04/17 0000 Signed Impressions: Service Date/Time: Sunday, June 04, 2017 14:41 - CONCLUSION: 1. Nondiagnostic CTA examination due to significant patient motion. Plan: Patient will be transferred emergently for cerebral angiography and possible intervention. Amol Kevin MD Head CT 06/04/17 0000 Signed Impressions: Service Date/Time: Sunday, June 04, 2017 13:35 - CONCLUSION: Normal examination. Jey Magaña MD Chest X-Ray 06/04/17 0000 Signed Impressions: Service Date/Time: Sunday, June 04, 2017 13:54 - CONCLUSION: No acute disease. Dejon Durand MD Cerebral Arteriogram 06/04/17 0000 Signed Impressions: Service Date/Time: Sunday, June 04, 2017 16:14 - CONCLUSION: 1. Occlusion of the right ICA terminus secondary to combination of acute and chronic thrombus. 2. Mechanical thrombectomy was only partially successful in reestablishing flow with significantly diminished flow through the ICA terminus. 3. Marked angiographic improvement following 3 mm balloon angioplasty of the right ICA terminus and additional thrombectomy. Minimal residual platelike [id number] chronic adherent thrombus in the ICA terminus. Otherwise, TICI 3. 4. 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 Amol Kevin MD PE at Discharge General: No acute distress. Heart: Regular rate and rhythm. No murmur. Lungs: Clear to auscultation bilaterally. No wheezes, rales, or rhonchi. Breathing is nonlabored. Abdomen: Soft, nontender, nondistended. Extremities: No lower extremity edema. 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 Psych: Alert and oriented. Pt update on day of discharge Patient has no complaints at this time. Feels that the left upper extremity weakness is improving. Denies chest pain or dyspnea. Hospital Course The patient was admitted for evaluation and management of acute CVA. Neurology was consulted. Patient had emergent cerebral angiogram with thrombolysis of thrombus. Anticoagulation was started, heparin drip and Coumadin. Neurosurgery was consulted for evaluation of cerebral aneurysm. Interventional radiology recommended 6 month weight prior to coiling of his aneurysm. Blood pressure medications were adjusted. INR was monitored closely. Neurology cleared the patient for discharge once the INR was in the therapeutic range of 2-3. On the day of discharge, his INR was 2.6. Pt Condition on Discharge: Stable Discharge Disposition: Discharge Home Discharge Time: > 30 minutes Discharge Instructions DIET: Follow Instructions for: Heart Healthy Diet Activities you can perform: Regular-No Restrictions Follow up Referrals: Neurology - 1 Week with Héctor Preciado PhD, MD Neurosurgery - 2 Weeks with Jeffery Farmer MD PCP Follow-up - Next Day New Orders: PT/INR - Next Day New Medications: Warfarin (Warfarin) 4 Mg Tab 4 MG PO DAILY Blood Clot Prevention #30 Ref 0 TAB Nifedipine (Nifedipine ER) 90 Mg Tab 90 MG PO DAILY Blood Pressure Management #30 Ref 0 TAB Continued Medications: Hydralazine HCl (Hydralazine HCl) 50 Mg Tablet 50 MG PO Q8HR Blood Pressure Management #90 Ref 0 TAB (This prescription has been renewed) Discontinued Medications: Amlodipine (Norvasc) 10 Mg Tab 10 MG PO DAILY Blood Pressure Management #30 TAB Lisinopril (Lisinopril) 20 Mg Tab 20 MG PO DAILY Blood Pressure Management #30 TAB Silver Villarreal MD Jun 14, 2017 11:48
[2017-06-14 12:30] VITALS: BP 149/89; PULSE 97; RESP 17; TEMP 98.6; O2SAT 100
[2017-06-14] MEDS ORDERED: WARFARIN SOD 3 MG TAB PO SCH (16:00)
== END 2017-06-14 14:04 | disposition home or self-care (01) | DRG 23 ==
LOC: NEPE 13:16 → NEDA 16:12 → N03B 20:00 → N05B 06-10 18:04
PROVIDERS: ADMIT Family Medicine; ATTEND Family Medicine
PROC: 03CK3ZZ Extirpation of Matter from Right Internal Carotid Artery, Percutaneous Approach (ICD-10-PCS; principal; 2017-06-04)
PROC: 037K3ZZ Dilation of Right Internal Carotid Artery, Percutaneous Approach (ICD-10-PCS; 2017-06-04)
PROC: B34 Imaging, Upper Arteries, Ultrasonography (ICD-10-PCS; 2017-06-04)
PROC: B3161ZZ Fluoroscopy of Right Internal Carotid Artery using Low Osmolar Contrast (ICD-10-PCS; 2017-06-04)
PROC: B246ZZ4 Ultrasonography of Right and Left Heart, Transesophageal (ICD-10-PCS; 2017-06-10)
DX: I63.311 Cerebral infarction due to thrombosis of right middle cerebral artery (principal); I63.031 Cerebral infarction due to thrombosis of right carotid artery; N17.9 Acute kidney failure, unspecified; I67.1 Cerebral aneurysm, nonruptured; G81.94 Hemiplegia, unspecified affecting left nondominant side; Q21.1 Atrial septal defect; I72.0 Aneurysm of carotid artery; I12.9 Hypertensive chronic kidney disease with stage 1 through stage 4 chronic kidney disease, or unspecified chronic kidney disease; R47.81 Slurred speech; N18.9 Chronic kidney disease, unspecified; E78.5 Hyperlipidemia, unspecified; F12.90 Cannabis use, unspecified, uncomplicated; F17.210 Nicotine dependence, cigarettes, uncomplicated; Z86.73 Personal history of transient ischemic attack (TIA), and cerebral infarction without residual deficits; Z91.011 Allergy to milk products; Z91.013 Allergy to seafood; Z91.041 Radiographic dye allergy status
CPT/HCPCS: 36226; 61630; 61645; 70450; 70496; 70553; 71010; 76937; 80048; 80061; 80307; 81001; 81240; 81241; 82435; 82550; 82565; 82947; 82948; 83036; 83605; 83735; 84132; 84295; 84484; 84520; 85025; 85027; 85303; 85306; 85384; 85598; 85610; 85613; 85652; 85730; 86147; 86403; 86850; 86900; 86901; 87040; 87077; 87086; 87186; 87205; 93005; 93312; 93320; 93325; 96374; A9579; C1757; C1760; C1769; C1887; C1894; C2628; J0360; J1644; J2930; J3010; J7030; J7040; Q9967

== ENCOUNTER → 2017-06-28 | Outpatient (CLI) | payer SELFPAY ==
[~2017-06-28] MED LIST changes: -AMLO10 PO; -LISI-515 PO; +NIFE90TA2 PO; +WARF-20 PO; +WARF-23 PO
[2017-06-28 15:16] LABS: INTERNATIONAL NORMALIZED RATIO 1.4 RATIO
[2017-06-28 15:22] LABS: PROTHROMBIN TIME - PATIENT 15.2 SEC (9.8-11.6)
== END ==
LOC: CLAB 14:53
PROVIDERS: ATTEND Nurse Practitioner Family
DX: Z51.81 Encounter for therapeutic drug level monitoring (principal)
CPT/HCPCS: 36415; 85610

== ENCOUNTER → 2017-07-01 | Outpatient (CLI) | payer SELFPAY ==
[~2017-07-01] MED LIST changes: -WARF-20 PO
[2017-07-01 09:21] LABS: INTERNATIONAL NORMALIZED RATIO 1.4 RATIO; PROTHROMBIN TIME - PATIENT 16.2 SEC (9.8-11.6)
== END ==
LOC: CLAB 08:22
PROVIDERS: ATTEND Nurse Practitioner Family
DX: Z51.81 Encounter for therapeutic drug level monitoring (principal)
CPT/HCPCS: 36415; 85610

== ENCOUNTER → 2017-07-04 | Outpatient (CLI) | payer SELFPAY ==
[2017-07-04 10:18] LABS: INTERNATIONAL NORMALIZED RATIO 1.7 RATIO; PROTHROMBIN TIME - PATIENT 19.6 SEC (9.8-11.6)
== END ==
LOC: CLAB 09:51
PROVIDERS: ATTEND Nurse Practitioner Family
DX: Z51.81 Encounter for therapeutic drug level monitoring (principal)
CPT/HCPCS: 36415; 85610

== ENCOUNTER 2017-08-26 10:37 | Emergency (ER) | payer SELFPAY ==
[~2017-08-26] VITALS: Ht 190.5 cm; Wt 110.0 kg
[2017-08-26 10:39] VITALS: BP 190/107; PULSE 61; RESP 12; TEMP 97.9; O2SAT 97
[2017-08-26 11:32] LABS: APTT (PATIENT) 30.9 SEC (24.3-30.1); AUTOMATED NEUTROPHIL # 8.5 TH/MM3 (1.8-7.7); BASOPHIL # 0.1 TH/MM3 (0-0.2); BASOPHIL % 0.8 % (0.0-2.0); EOSINOPHIL # 0.1 TH/MM3 (0-0.4); EOSINOPHIL % 0.5 % (0.0-4.0); HEMATOCRIT 43.3 % (39.0-51.0); HEMO FLAGS DIFF FINAL; INTERNATIONAL NORMALIZED RATIO 1.3 RATIO; LYMPHOCYTE # 2.9 TH/MM3 (1.0-4.8); MEAN CORPUSCULAR HEMOGLOBIN 25.8 PG (27.0-34.0); MEAN CORPUSCULAR HGB CONC 32.7 % (32.0-36.0); MONO % 8.6 % (0.0-8.0); NEUT % 67.1 % (16.0-70.0); PLATELET COUNT 235 TH/MM3 (150-450); RED BLOOD COUNT 5.48 MIL/MM3 (4.50-5.90); RED CELL DISTRIBUTION WIDTH 15.9 % (11.6-17.2); WHITE BLOOD COUNT 12.7 TH/MM3 (4.0-11.0)
[2017-08-26 11:43] LABS: BICARBONATE 27.2 MEQ/L (21.0-32.0)
[2017-08-26] MEDS ORDERED: NIFEdipine 20 MG CAP PO ONE (11:45)
[2017-08-26] MEDS ORDERED: hydrALAZINE HCL 50 MG TAB PO ONE (11:45)
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
[2017-08-26 11:58] VITALS: BP 190/95; PULSE 81; RESP 17; TEMP 97.8; O2SAT 99
[2017-08-26] MEDS ORDERED: WARF-23 PO (11:59)
[2017-08-26] MEDS ORDERED: NIFE90TA2 PO (11:59)
[2017-08-26] MEDS ORDERED: HYDR-3800 PO (11:59)
[2017-08-26] MEDS ORDERED: NIFEdipine 90 MG SUSTAINED RELEASE TAB PO ONE (12:00)
[2017-08-26 12:20] VITALS: BP 188/93; TEMP 97.8
== END 2017-08-26 12:22 | disposition home or self-care (01) ==
LOC: NEPC 10:37
DX: I10 Essential (primary) hypertension (principal); Z76.0 Encounter for issue of repeat prescription; E78.00 Pure hypercholesterolemia, unspecified; Z86.73 Personal history of transient ischemic attack (TIA), and cerebral infarction without residual deficits; Z79.01 Long term (current) use of anticoagulants
CPT/HCPCS: 80048; 85025; 85610; 85730; 99284